=== PATIENT | female | born 1955 | race Caucasian/White ===

== ENCOUNTER 2023-03-23 07:47 | Day surgery (SDC) | payer MEDICARE, SELFPAY ==
[2023-03-08 10:42] VITALS: BMI 29.7
[2023-03-23 08:15] VITALS: BP 153/84; PULSE 78; RESP 20; TEMP 36.8; O2SAT 96
--- NOTE | 2023-03-23 08:20 | WPDANESEPPF ---
Anes - Initial Pre Proc Eval Procedure: Operation Date: 03/23/23 09:30 Proposed Procedures p Esophagogastroduodenoscopy - Eleazar Cooley MD s Screening Colonoscopy - Eleazar Cooley MD Date/Time: 03/23/23 08:20 Surgeon: Eleazar Cooley MD Pre Op Diagnosis: HX of Peptic Ulcer Disease, Neoplasm Screening Patient Data Age: 67 Gender: F Height: 1.6 m Weight: 76 kg Allergies Allergy/AdvReac Type Severity Reaction Status Date / Time Penicillins Allergy Mild Unknown Verified 03/23/23 08:21 clindamycin Allergy Unknown Unknown Verified 03/23/23 08:21 meloxicam Allergy Unknown Unknown Verified 03/23/23 08:21 Quinolones Allergy Unknown Unknown Verified 03/23/23 08:21 Sulfa (Sulfonamide Allergy Unknown Unknown Verified 03/23/23 08:21 Antibiotics) sulfanilamide Allergy Unknown Unknown Verified 03/23/23 08:21 Home Medications Medication Instructions Recorded Confirmed Type folic acid 1 mg tablet 1 mg PO DAILY 10/22/19 03/23/23 History hydroxychloroquine 200 mg tablet 200 mg PO BID 10/22/19 03/23/23 History (Plaquenil) temazepam 7.5 mg capsule 7.5 mg PO ONCE 10/22/19 03/23/23 History aspirin 81 mg tablet,delayed 81 mg PO DAILY #1 tablet 02/09/23 03/23/23 Rx release sodium,potassium,mag sulfates 17.5 See Rx Instructions PO .COMPLEX 02/17/23 03/23/23 Rx gram-3.13 gram-1.6 gram oral soln #354 mL (Suprep Bowel Prep Kit) methotrexate sodium 2.5 mg tablet 20 mg PO WEEKLY 03/08/23 03/23/23 History Patient hx anesthesia problems: none Family hx anesthesia problems: none Results Review: All pre-operative results and documents have been reviewed as part of the pre-operative evaluation. [facility] Past Medical History Medical History (Updated 03/23/23 @ 09:07 by Eleazar Cooley MD) BMI 29.0-29.9,adult Brain aneurysm Chronic GERD Rheumatoid arthritis Surgical History Surgical History (Updated 03/23/23 @ 08:21 by Can Downey DO) History of brain shunt Family History Family History Mother Family history of Alzheimer's disease Cerebrovascular accident Father Family history of lung cancer Family history of malignant neoplasm of bone Sibling , cancer No problems noted. Social History Social History (Updated 02/09/23 @ 15:08 by RAGINI Lebron) Smoking status: Never smoker Tobacco type: cigarettes Second hand tobacco smoke exposure: No Alcohol intake: never Substance use: never Substance use type: does not use Lack of Transportation: No Lack of Food: Never True Current Housing: I Have Housing Concerned About Future Housing: No Difficulty Paying Gas/Electric Bills: No Difficulty Paying for Meds: No Currently Unemployed: No Education: High School Diploma/GED Difficulty w/ Childcare or Family Care: No Living arrangements: with family Occupation/Education: retired 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 Informed Consent: The patient's anesthetic plan and its attendant risks and benefits were discussed with the patient/family/POA. Questions were solicited and answers provided to the satisfaction of the patient/family/POA.
[2023-03-23] MEDS: LACTATED RINGERS 1,000 ML 150 ML IV CONT (08:48)
--- NOTE | 2023-03-23 09:04 | PM.HPGS ---
History of Present Illness History of Present Illness Consent: Risks, benefits, and alternatives have been discussed and questions answered. Patient agrees to proceed with procedure. Chief complaint: HX of Peptic Ulcer Disease, Neoplasm Screening Narrative: Akua Garner is a 67 year old female Referred by Gynecology for colonoscopy an EGD. Patient has a history of bleeding ulcers identified in 2018. At that time endoscopy confirmed gastric ulcers. Follow-up EGD in [address] Paulson confirmed that these his he has healed up. Patient has a history of rheumatoid arthritis. Previously took NSAIDs. She low longer takes these. She is maintained on methotrexate. Patient referred for EGD. Apparently because of left side chest pain. Patient complains of occasional tenderness in left lower ribcage. She has no difficulty eating. She has no heartburn. Has had no recent bleeding. Additionally patient is referred for colonoscopy. Two thousand nineteen was found to have a colon polyp. Patient referred for colonoscopy for this reason. Review of Systems Review of Systems: Review of systems noncontributory. [facility] Past Medical History Medical History (Updated 03/23/23 @ 09:07 by Eleazar Cooley MD) BMI 29.0-29.9,adult Brain aneurysm Chronic GERD Rheumatoid arthritis Surgical History Surgical History (Updated 03/23/23 @ 08:21 by Can Downey DO) History of brain shunt Family History Family History Mother Family history of Alzheimer's disease Cerebrovascular accident Father Family history of lung cancer Family history of malignant neoplasm of bone Sibling , cancer No problems noted. Social History Social History (Updated 02/09/23 @ 15:08 by RAGINI Lebron) Smoking status: Never smoker Tobacco type: cigarettes Second hand tobacco smoke exposure: No Alcohol intake: never Substance use: never Substance use type: does not use Lack of Transportation: No Lack of Food: Never True Current Housing: I Have Housing Concerned About Future Housing: No Difficulty Paying Gas/Electric Bills: No Difficulty Paying for Meds: No Currently Unemployed: No Education: High School Diploma/GED Difficulty w/ Childcare or Family Care: No Living arrangements: with family Occupation/Education: retired 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 Gender identity (if verbalized by the patient): Female Spiritual care concerns: No Meds Home Medications and Allergies Home Medications Medication Instructions Recorded Confirmed Type folic acid 1 mg tablet 1 mg PO DAILY 10/22/19 03/23/23 History hydroxychloroquine 200 mg tablet 200 mg PO BID 10/22/19 03/23/23 History (Plaquenil) temazepam 7.5 mg capsule 7.5 mg PO ONCE 10/22/19 03/23/23 History aspirin 81 mg tablet,delayed 81 mg PO DAILY #1 tablet 02/09/23 03/23/23 Rx release sodium,potassium,mag sulfates 17.5 See Rx Instructions PO .COMPLEX 02/17/23 03/23/23 Rx gram-3.13 gram-1.6 gram oral soln #354 mL (Suprep Bowel Prep Kit) methotrexate sodium 2.5 mg tablet 20 mg PO WEEKLY 03/08/23 03/23/23 History Allergies Allergy/AdvReac Type Severity Reaction Status Date / Time Penicillins Allergy Mild Unknown Verified 03/23/23 08:21 clindamycin Allergy Unknown Unknown Verified 03/23/23 08:21 meloxicam Allergy Unknown Unknown Verified 03/23/23 08:21 Quinolones Allergy Unknown Unknown Verified 03/23/23 08:21 Sulfa (Sulfonamide Allergy Unknown Unknown Verified 03/23/23 08:21 Antibiotics) sulfanilamide Allergy Unknown Unknown Verified 03/23/23 08:21 Vital Signs Vital Signs - 24 hr 03/23/23 08:15 Temperature 98.3 F Pulse Rate 78 Respiratory Rate 20 Blood Pressure 153/84 H Pulse Oximetry 96 Oxygen Delivery Room Air Exam Narrative: Physical exam reveals patient to be alert. Vital signs s
[2023-03-23] MEDS: BENZOCAINE (*SP) 60 ML SPRAY CAN (HURRICAINE) 1 SPRAY MUCOUS MEM (09:55)
[2023-03-23] MEDS: SIMETHICONE ORAL SUSPENSION 20 MG/0.3 ML 30 ML BOTTLE 0.6 ML IRRIGATION (10:10)
[2023-03-23 10:25] VITALS: BP 121/77; PULSE 75; RESP 16; O2SAT 98
[2023-03-23 10:35] VITALS: BP 124/85; PULSE 77; RESP 16; O2SAT 97
[2023-03-23 10:45] VITALS: BP 138/85; PULSE 64; RESP 18; O2SAT 97
--- NOTE | 2023-03-23 12:56 | WPDANESPN ---
Anes - Prog Note Post-Op Date/Time: 03/23/23 12:56 Cardiovascular status: normal Respiratory status: normal Airway patency: baseline Mental status: baseline Post-Op hydration status: normal Vital Signs: Last Vital Signs Temp 36.8 C 03/23/23 08:15 Pulse 64 03/23/23 10:45 Resp 18 03/23/23 10:45 BP 138/85 03/23/23 10:45 Pulse Ox 97 03/23/23 10:45 O2 Del Method Room Air 03/23/23 10:45 Pain Score (VAS): 0 I/O: Intake & Output 03/22/23 03/23/23 03/23/23 23:59 07:59 15:59 Intake Total 550 Balance 550 Post-procedural complaints: none Patient Feedback: Patient satisfied with anesthetic care. Other Findings: Patient vital signs back to baseline. Patient denies nausea and vomiting. Patient's pain under control. Patient OK for discharge.
== END 2023-03-23 11:05 | disposition home or self-care (01) ==
PROVIDERS: PCP Family Medicine; Visit Provider Internal Medicine Gastroenterology
PROC: 0DJ08ZZ Inspection of Upper Intestinal Tract, Via Natural or Artificial Opening Endoscopic (ICD-10-PCS; CPT 43235; principal; 2023-03-23 09:30)
PROC: 0DJD8ZZ Inspection of Lower Intestinal Tract, Via Natural or Artificial Opening Endoscopic (ICD-10-PCS; CPT 45378; 2023-03-23 09:30)
DX: Z86.010 Personal history of colon polyps (principal)
CPT/HCPCS: 45385

== ENCOUNTER 2023-03-23 09:00 | Outpatient (NON) | payer MEDICARE, SELFPAY | END 2023-03-23 09:01 | disposition home or self-care (01) | PROVIDERS: PCP Family Medicine; Visit Provider Internal Medicine Gastroenterology | DX: Z12.11 Encounter for screening for malignant neoplasm of colon (principal) | CPT/HCPCS: 88305 ==

== ENCOUNTER 2023-11-16 08:13 | Outpatient (CLI) | payer MEDICARE, SELFPAY ==
--- NOTE | ~2023-11-16 | US_ITS ---
EXAMINATION: US carotid duplex BI DATE: 11/16/2023 10:01 INDICATION: Syncope and collapse TECHNIQUE: Grayscale, color Doppler, and pulsed Doppler images of the cervical carotid arteries were obtained. The degree of vessel stenosis is placed in one of the following categories: normal, <50%, 5 0-69%, >=70% but less than near-occlusion, near-occlusion, or total occlusion. Note that percent sten osis relative to normal distal artery lumen diameter is indirectly measured from velocity measurement s as described by Gabe, et al. Radiology 2003; 229:340-346. COMPARISON: None. FINDINGS: RIGHT: The right common carotid artery (CCA) peak systolic velocity (PSV) is 131 cm/s. The right internal ca rotid artery (ICA) PSV is 80 cm/s. The right ICA end-diastolic velocity (EDV) is 23 cm/s. The right I CA/CCA PSV ratio is 0.6. Grayscale and color Doppler images yield an estimate of <50% diameter reduct ion from plaque in the ICA. The external carotid artery (ECA) PSV is 95 cm/s. There is antegrade flow in the right vertebral artery. LEFT: The left CCA PSV is 133 cm/s. The left ICA PSV is 88 cm/s. The left ICA EDV is 25 cm/s. The left ICA/ CCA PSV ratio is 0.7. Grayscale and color Doppler images yield an estimate of <50% diameter reduction from plaque in the ICA. The ECA PSV is 109 cm/s. There is antegrade flow in the left vertebral arter y. IMPRESSION: 1. <50% stenosis in the right internal carotid artery. 2. <50% stenosis in the left internal carotid artery. Reviewed, dictated and finalized at location A. [employer]
--- NOTE | 2023-11-16 08:52 | ECHO_ITS ---
Patient Info Name: Akua Garner Age: 67 years : 1955 Gender: Female Ht: 63 in Wt: 182 lbs BSA: 1.95 m2 HR: 69 bpm BP: 130 / 84 mmHg Technical Quality: Good Exam Date: 11/16/2023 9:01 AM Exam Location: Echo Lab Patient Status: Outpatient Admit Date: 11/16/2023 Staff Ordering Physician: Annette Caballero Attending Provider: Annette Caballero Referring Physician: Ada GIFFORD; Exam Type: CA echo doppler color flow Study Info Indications R55 - Syncope and collapse Complete two-dimensional, color flow and Doppler transthoracic echocardiogram is performed. Summary 1. Complete two-dimensional, color flow and Doppler transthoracic echocardiogram is performed. 2. Left ventricular chamber dimension is normal. 3. Left ventricular systolic function is normal, estimated at 65-70%. 4. The left ventricular diastolic function is abnormal. 5. E/e' 12 is mildly elevated. 6. Left atrial chamber dimension is mildly enlarged. 7. There is trace tricuspid valve regurgitation. 8. No pulmonary hypertension, estimated pulmonary arterial systolic pressure is 29 mmHg. Left Ventricle E/e' 12 is mildly elevated. Left ventricular chamber dimension is normal. Left ventricular systolic function is normal, estimated at 65-70%. The left ventricular diastolic function is abnormal. Right Ventricle Right ventricular systolic function is normal and with normal TAPSE 1.9 cm. Right ventricular chamber dimension is normal. Left Atria Left atrial chamber dimension is mildly enlarged. Right Atria Right atrial chamber dimension is normal. Aortic Valve The aortic valve is trileaflet. There is no aortic valve stenosis. There is no aortic valve regurgitation. Pulmonic Valve There is no pulmonic regurgitation. Mitral Valve There is no mitral valve stenosis. There is no mitral valve regurgitation. Tricuspid Valve There is trace tricuspid valve regurgitation. No pulmonary hypertension, estimated pulmonary arterial systolic pressure is 29 mmHg. Pericardium/Pleural There is no pericardial effusion. Inferior Vena Cava Normal inferior vena cava with >50% collapse upon inspiration consistent with normal right atrial pressure, 5 mmHg. Aorta The aortic root size at the sinus of Valsalva is normal. Left Ventricular Outflow Tract Name Value Normal LVOT 2D LVOT Diameter 2.0 cm LVOT Doppler LVOT Peak Gradient 6 mmHg LVOT Mean Gradient 4 mmHg LVOT VTI 31 cm LVOT VTI/AV VTI Ratio 0.6 LVOT Stroke Volume 95 ml LVOT CO 6.2 l/min LVOT CI 3.2 l/min/m2 Pulmonic Valve Name Value Normal PV Doppler PV Peak Gradient 3 mmHg Mitral Valve Name
== END 2023-11-16 08:14 | disposition home or self-care (01) ==
PROVIDERS: PCP Family Medicine; Visit Provider Nurse Practitioner Family
DX: R55 Syncope and collapse (principal); I65.23 Occlusion and stenosis of bilateral carotid arteries; I51.7 Cardiomegaly
CPT/HCPCS: 93306; 93880

== ENCOUNTER 2024-05-12 13:00 | Emergency (ER) | payer MEDICARE, SELFPAY ==
--- NOTE | ~2024-05-12 | CT_ITS ---
EXAMINATION: CT abdomen pelvis w con DATE: 05/12/2024 15:09 INDICATION: LLQ pain TECHNIQUE: Computed tomography (CT) of the abdomen and pelvis was performed with 100 mL Omnipaque-350 intravenous contrast. Automated exposure control and iterative reconstruction technique were employe d. The dose-length product was 829.85 mGy-cm. COMPARISON: 03/12/2018. FINDINGS: Lower thorax: Small focus of right middle lobe and anterior right lower lobe atelectasis/scar. Liver: Normal. Biliary/Gallbladder: Gallbladder is absent. No bile duct dilation. Pancreas: No mass or duct dilation. Spleen: Normal. Adrenals:No mass. Kidneys: No suspicious mass, obstructing stone, or hydronephrosis. Simple bilateral upper pole cysts. Multiple subcentimeter left renal hypodensities that are too small to characterize but most likely r epresent cysts. GI tract: Mild distal esophageal and gastric wall edema. Short segment perisigmoid inflammatory cullen e with an associated inflamed diverticulum. No free air or abscess. No small or large bowel dilation. Normal appendix. Mesentery/Peritoneum: No ascites, mass, or free air. Retroperitoneum: No mass. Pelvis: Small urethrocele or bladder diverticulum. Urinary bladder otherwise normal. Uterus not visua lized. Bilateral ovaries not confidently visualized. Soft Tissues: Soft tissues and body wall unremarkable. Bones: No acute osseous finding. IMPRESSION: Mild esophagitis/gastritis. Acute uncomplicated sigmoid diverticulitis. Reviewed, dictated and finalized at location K.
[2024-05-12 13:05] VITALS: BP 172/66; PULSE 76; RESP 16; TEMP 36.4; O2SAT 97
[2024-05-12 14:27] LABS: Basophils Absolute Auto 0.1 K/mm3 (0.0-0.1); Basophils Percent Auto 0.4 % (0.2-1.2); Eosinophils Absolute Auto 0.2 K/mm3 (0-0.3); Hematocrit 38.4 % (37.0-47.0); Hemoglobin 12.5 g/dL (12.0-15.0); Immature Granulocyte Absolute 0.09 K/mm3 (0.00-0.031); Immature Granulocyte Percent A 0.6 % (0-0.5); Lymphocytes Percent Auto 9.1 % (18.3-44.2); Mean Corpuscular HGB Conc 32.6 g/dl (32-36); Mean Corpuscular Hemoglobin 30.4 pg (26-34); Mean Corpuscular Volume 93.4 fl (80-100); Mean Platelet Volume 10.3 fl (7.4-10.4); Monocytes Absolute Auto 1.4 K/mm3 (0.1-0.6); Monocytes Percent Auto 9.9 % (2.6-8.5); Neutrophils Absolute Auto 11.3 K/mm3 (1.3-6.7); Platelet Count Result 219 k/mm3 (150-375); Red Blood Count 4.11 M/mm3 (4.2-5.4); White Blood Count 14.3 K/mm3 (4.5-10.0)
[2024-05-12] MEDS: MORPHINE SULFATE (*CRX) 4 MG/ML INJ IV PUSH (14:36)
[2024-05-12] MEDS: ONDANSETRON INJ 4 MG/2 ML VIAL IV PUSH (14:36)
[2024-05-12 14:47] LABS: Alanine Aminotransferase 25 U/L (6-35); Albumin Level 4.2 g/dL (3.5-5.1); Alkaline Phosphatase 103 U/L (38-126); Anion Gap 8 mmol/L (4-12); Aspartate Amino Transferase 34 U/L (14-36); Bilirubin,Total 0.6 mg/dL (0.2-1.3); Blood Urea Nitrogen 18 mg/dL (7-17); Calcium 8.9 mg/dL (8.4-10.2); Carbon Dioxide 28 mmol/L (22-30); Chloride 104 mmol/L (98-107); Estimated CRCL calculation 51 ml/min; Estimated Glomerular Filt Rate 55; Glucose 108 mg/dL (65-110); Lipase 487 U/L (23-300); Potassium 4.2 mmol/L (3.4-5.0); Sodium 140 mmol/L (137-145)
[2024-05-12 16:15] VITALS: BP 111/62; PULSE 74; RESP 16; O2SAT 94
[2024-05-12 16:20] LABS: Appearance Urine Clear (Clear); Bilirubin Urine Negative (Negative); Blood Urine Negative (Negative); Color Urine Yellow (Yellow); Glucose Urine UA Negative (Negative); Ketones Urine Negative (Negative); Leukocyte Esterase Ur Negative LEU/UL (Negative); Nitrate Urine Negative (Negative); Protein Urine Negative (Negative); Specific Grav Ur 1.042 (1.001-1.035); Urobilinogen Urine 0.2 mg/dL (<2.0); pH Urine 5.5 (5.0-9.0)
[2024-05-12 16:40] LABS: Add Urine Microscopic? NO
--- NOTE | 2024-05-12 17:17 | ED.ABDPAIN ---
HPI - Abdominal Pain General Chief Complaint: Abdominal Pain Stated Complaint: abd pain Time Seen by Provider: 05/12/24 14:13 History of Present Illness HPI narrative: Patient is a 68-year-old female who presents ER with left lower quadrant abdominal pain. Sudden onset today. No diarrhea or constipation. No urinary frequency urgency or dysuria there are she does have history of diverticulitis. patient denies aggravating or alleviating factors. Related Data Home Medications Medication Instructions Recorded Confirmed folic acid 1 mg tablet 1 mg PO DAILY 10/22/19 02/14/24 hydroxychloroquine 200 mg tablet 200 mg PO BID 10/22/19 02/14/24 (Plaquenil) methotrexate sodium 2.5 mg tablet 20 mg PO WEEKLY 03/08/23 02/14/24 adalimumab 40 mg/0.8 mL 40 mg subcut ONCE 10/27/23 02/14/24 subcutaneous pen kit (Humira Pen) Allergies Allergy/AdvReac Type Severity Reaction Status Date / Time Penicillins Allergy Mild Unknown Verified 05/03/24 07:48 clindamycin Allergy Unknown Unknown Verified 05/03/24 07:48 meloxicam Allergy Unknown Unknown Verified 05/03/24 07:48 Quinolones Allergy Unknown Unknown Verified 05/03/24 07:48 Sulfa (Sulfonamide Allergy Unknown Unknown Verified 05/03/24 07:48 Antibiotics) sulfanilamide Allergy Unknown Unknown Verified 05/03/24 07:48 Review of Systems Review of Systems: All systems reviewed & are unremarkable except as noted in HPI and below Constitutional: Constitutional: Reports no additional constitutional complaints ENT: Reports system reviewed and no additional complaints, except as documented Cardiovascular: Cardiovascular: Reports no additional cardiovascular complaints Respiratory: Respiratory: Reports no additional respiratory complaints Gastrointestinal: Gastrointestinal: Reports abdominal pain, Denies diarrhea, Denies nausea and Denies vomiting [facility] Past Medical History Medical History BMI 29.0-29.9,adult BMI 32.0-32.9,adult Brain aneurysm Chronic GERD Rheumatoid arthritis Surgical History Surgical History History of brain shunt Family History Family History Mother Family history of Alzheimer's disease Cerebrovascular accident Father Family history of lung cancer Family history of malignant neoplasm of bone Sibling , cancer Cancer Family history of Alzheimer's disease AA (aortic aneurysm) Social History Social History Smoking status: Former smoker Tobacco type: cigarettes Second hand tobacco smoke exposure: Yes Alcohol intake: never Substance use: never Substance use type: does not use Do You Feel Safe in your Home?: Yes Lack of Transportation: No Lack of Food: Never True Current Housing: I Have Housing Concerned About Future Housing: No Difficulty Paying Gas/Electric Bills: No Difficulty Paying for Meds: No Currently Unemployed: No Education: High School Diploma/GED Difficulty w/ Childcare or Family Care: No Living arrangements: with family Occupation/Education: retired 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 HEAD: Normocephalic, atraumatic. ENT: Mucous membranes moist. CHEST: Clear to auscultation. No respiratory distress. HEART: Regular rate and rhythm. Normal peripheral pulses. ABDOMEN: Soft, tender to palpation left lower quadrant with guarding, nondistended. EXTREMITIES: Normal range of motion. No edema. SKIN: Warm, dry, no rash. NEURO:Alert and oriented x3. PSYCH: Normal mood and affect. Course Course Emergency Course: patient informed of lab and imaging results. Discusse
[2024-05-12 17:52] VITALS: BP 115/57; PULSE 84; RESP 19; O2SAT 95
== END 2024-05-12 17:53 | disposition home or self-care (01) ==
PROVIDERS: Emergency Provider Emergency Medicine; PCP Family Medicine
DX: K57.32 Diverticulitis of large intestine without perforation or abscess without bleeding (principal); K29.70 Gastritis, unspecified, without bleeding; M06.9 Rheumatoid arthritis, unspecified; K21.9 Gastro-esophageal reflux disease without esophagitis; Z98.2 Presence of cerebrospinal fluid drainage device; Z87.891 Personal history of nicotine dependence; Z79.620 Long term (current) use of immunosuppressive biologic; Z79.899 Other long term (current) drug therapy; Z79.82 Long term (current) use of aspirin
CPT/HCPCS: 36415; 74177; 80053; 81003; 83690; 85025; 96374; 96375; 99284; J2270; J2405; Q9967

== ENCOUNTER 2025-05-02 09:50 | Inpatient (IN) | payer MEDICARE, SELFPAY ==
--- NOTE | ~2025-05-02 | CT_ITS ---
EXAMINATION: CTA chest PE abdomen pel DATE: 05/02/2025 12:32 INDICATION: Hypoxia. Left upper quadrant abdominal pain. TECHNIQUE: Computed tomography (CT) pulmonary angiogram of the chest was performed with 100 mL Omnipa que-350 intravenous contrast. Additional 3D reconstructions utilizing coronal maximum intensity proje ction (MIP) were performed. CT of the abdomen and pelvis was performed with intravenous contrast util izing the same contrast bolus following a short delay. Automated exposure control and iterative recon struction technique were employed. The dose-length product was 1635.23 mGy-cm. COMPARISON: CT abdomen pelvis dated 05/12/[address] dated 12/01/2016 FINDINGS: Chest: No pulmonary embolism. Mosaic attenuation throughout both lungs with perihilar predominant patchy lico undglass opacities throughout all lobes of both lungs. There are scattered pleural parenchymal scarri ng and linear atelectasis/scarring in all lobes of both lungs with the exception of the left upper lo be. No pleural effusion or pneumothorax. Calcified right lower lobe nodule along with calcified right hilar and mediastinal lymph nodes consistent with old granulomatous disease. Heart size is normal. N o pericardial effusion. Thoracic aorta is normal in caliber with no dissection. Small sliding-type hi atal hernia with small thickening the distal esophagus which could be related to mild esophagitis sec ondary reflux. Mild thoracic spondylosis. C6-C7 anterior spinal fusion with anterior plate and screw fixation. Abdomen/pelvis: There is prominent edematous wall thickening at the gastric antrum and pylorus with haziness to the s urrounding fat suggestive of peptic ulcer disease versus focal gastritis. Cholecystectomy clips the g allbladder fossa. Liver, spleen, pancreas and bilateral adrenal glands are normal. There are bilatera l renal cysts measuring up to 1.4 cm in both kidneys. Bladder is normal. The uterus is not identified and has likely been surgically resected. Bilateral adnexa are unremarkable with age-appropriate atro phy of the ovaries.. There is moderate colonic diverticulosis with a sigmoid predominance. There is no adjacent inflammatory change to suggest diverticulitis. No free intraperitoneal gas or fluid. No p athologically enlarged abdominal or pelvic lymphadenopathy. Small fat-containing intramuscular lipoma within the proximal left sartorius muscle. Mild lumbar spondylosis. IMPRESSION: 1. No pulmonary embolism. 2. Mosaic attenuation throughout both lungs with perihilar predominant patchy groundglass opacities w hich is new since the prior study and in the acute setting could represent pneumonia, mild pulmonary edema, atelectasis, hypersensitivity pneumonitis or eosinophilic pneumonia. 3. Prominent edematous wall thickening at the gastric antrum and pylorus with some surrounding from t race stranding most suspicious for peptic ulcer disease or focal gastritis. The stranding abuts the h ead of the otherwise normal-appearing pancreas and would correlate with lipase levels to exclude less likely acute interstitial pancreatitis. 4. Small sliding-type hiatal hernia with mild wall thickening in the distal esophagus which could be seen with reflux esophagitis. 5. Diverticulosis. Reviewed, dictated and finalized at location A. IMPRESSION: 1. No pulmonary embolism. 2. Mosaic attenuation throughout both lungs with perihilar predominant patchy g roundglass opacities which is new since the prior study and in the acute settin g could represent pneumonia, mild pulmonary edema, atelectasis, hypersensitivit y pneumonitis or eosinophilic pneumonia. 3. Prominent edematous wall thickening at the gastric antrum and pylorus with s ome surrounding from trace stranding most suspicious for peptic ulcer disease o r focal gastritis. The stranding abuts the head of the otherwise normal-appeari ng pancreas and would correlate with lipase levels to exclude less likely acute interstitial pancreatitis. 4. Small sliding-type hiatal hernia with mild wall thickening in the distal eso phagus which could be seen with reflux esophagitis. 5. Diverticulosis.
--- NOTE | ~2025-05-02 | XR_ITS ---
EXAM/PROCEDURE: XR chest 2V - 05/02/2025 12:15 CDT HISTORY: 69 years old Female with shortness of breath, CONSTIPATION, NAUSEOUS X04/27/25 TECHNIQUE: Two view(s) of the chest. COMPARISON: None available. FINDINGS: LUNGS/ PLEURA: No focal consolidation. No appreciable pneumothorax or large pleural effusion. HEART/ MEDIASTINUM: Heart appears normal in size. BONES: No acute osseous abnormality. OTHER: Visualized upper abdomen is unremarkable. IMPRESSION: No acute process. Reviewed, dictated and finalized at location A. IMPRESSION: No acute process.
[2025-05-02 10:01] VITALS: BP 155/64; PULSE 79; RESP 18; TEMP 36.7; O2SAT 94
[2025-05-02 10:37] LABS: Hematocrit 38.0 % (37.0-47.0); Hemoglobin 12.2 g/dL (12.0-15.0); Immature Granulocyte Percent A 0.5 % (0-0.5); Lymphocytes Absolute Auto 1.66 K/mm3 (0.9-3.2); Mean Corpuscular HGB Conc 32.1 g/dl (32-36); Mean Corpuscular Hemoglobin 28.0 pg (26-34); Mean Corpuscular Volume 87.2 fl (80-100); Nucleated Red Blood Cells Absolute Auto 0.000 K/mm3 (0.0-0.012); Nucleated Red Blood Cells Perc 0.0 % (0.0-0.2); Platelet Count Result 303 k/mm3 (150-375); Red Blood Count 4.36 M/mm3 (4.2-5.4); White Blood Count 14.3 K/mm3 (4.5-10.0)
[2025-05-02 10:45] LABS: Add Urine Microscopic? YES; Appearance Urine Clear (Clear); Glucose Urine UA Negative (Negative); Leukocyte Esterase Ur 2+ LEU/UL (Negative); Nitrate Urine Negative (Negative); Non Pathogenic Casts 0-2; Specific Grav Ur 1.012 (1.001-1.035)
--- NOTE | 2025-05-02 11:32 | ECG_ITS ---
Test Date: 2025-05-02 11:56:28 Measurements Intervals [place] Rate: 72 P: 68 MS: 150 QRS: 64 QRSD: 84 T: 43 QT: 394 QTc: 434 Interpretive Statements SINUS RHYTHM BORDERLINE T WAVE ABNORMALITY- ANTERIOR LEADS BASELINE ARTIFACT- I, II, III, AVR, AVL, AVF BORDERLINE ECG No previous ECG available for comparison Electronically Signed On 05-02-2025 12:07:52 CDT by Cornelius Mason D.O.
--- NOTE | 2025-05-02 11:35 | ED_ITS ---
HPI - Nausea/Vomiting/Diarrhea General Chief complaint: Nausea/Vomiting/Diarrhea Stated complaint: n/v, constipation Time Seen by Provider: 05/02/25 10:18 History of Present Illness HPI Narrative: Patient is a 69-year-old female who presents to the ER with a 6 day history of abdominal pain, vomiting, no bowel movement, chills, sweats, and sore throat. She reports she was recently on vacation with her family in the [facility]. Patient reports she was diagnosed with diverticulitis within the past year. She reports while she was up in the [facility] her oxygen saturation was ?83%. Patient denies any headache, shortness of breath, chest pain or known fevers. Her medical chart endorses a history of high blood pressure and diabetes. Related Data Home Medications ?Medication ?Instructions ?Recorded ?Confirmed ?Last Taken ?Type hydroxychloroquine 200 mg tablet 200 mg PO BID 10/22/19 05/02/25 Unknown History (Plaquenil) adalimumab 40 mg/0.8 mL 40 mg subcut ONCE 10/27/23 05/02/25 Unknown History subcutaneous pen kit (Humira Pen) amlodipine 5 mg tablet 5 mg PO DAILY 09/06/24 05/02/25 Unknown History Allergies Allergy/AdvReac Type Severity Reaction Status Date / Time Penicillins Allergy Mild Unknown Verified 05/02/25 10:06 clindamycin Allergy Unknown Unknown Verified 05/02/25 10:06 meloxicam Allergy Unknown Unknown Verified 05/02/25 10:06 Quinolones Allergy Unknown Unknown Verified 05/02/25 10:06 Sulfa (Sulfonamide Allergy Unknown Unknown Verified 05/02/25 10:06 Antibiotics) sulfanilamide Allergy Unknown Unknown Verified 05/02/25 10:06 Review of Systems 2 Review of Systems: All systems reviewed & are unremarkable except as noted in HPI and below PMFSH Past Medical History Medical History Sinusitis, acute Left otitis media Low iron Kidney function abnormal Iron deficiency anemia due to chronic blood loss Decreased GFR Chronic radicular lumbar pain Chronic pain of right knee Cardiac murmur Fainting Changing skin lesion Contact dermatitis Insomnia Hand tingling Brain aneurysm Low kidney function History of colon polyps Hx of gastric ulcer Hypoglycemia Family history of brain aneurysm Mild diastolic dysfunction Mild atrial enlargement, left Elevated blood pressure reading Diverticulosis Rheumatoid arthritis Chronic GERD Brain aneurysm Surgical History Surgical History History of brain shunt Family History Family History Mother Family history of Alzheimer's disease Cerebrovascular accident Father Family history of lung cancer Family history of malignant neoplasm of bone Sibling , cancer Cancer Family history of Alzheimer's disease AA (aortic aneurysm) Social History Social History Smoking status: Former smoker Tobacco type: cigarettes Second hand tobacco smoke exposure: Yes Alcohol intake: never Substance use: never Substance use type: does not use Do You Feel Safe in your Home?: Yes Lack of Transportation: No Lack of Food: Never True Current Housing: I Have Housing Concerned About Future Housing: No Difficulty Paying Gas/Electric Bills: No Difficulty Paying for Meds: No Currently Unemployed: No Education: High School Diploma/GED Difficulty w/ Childcare or Family Care: No Living arrangements: with family Occupation/Education: retired 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 HEAD: Normocephalic, atraumatic. + palatal petechiae NECK: Supple. No adenopathy, no masses. RESPIRATORY: Airway patent, respirations nonlabored. Clear to auscultation bilaterally, no rales, rhonchi, wheezing. CARDIOVASCULAR: Regular rate and rhythm without murmurs, rubs, or gallops. Peripheral pulses 2+ and equal bilaterally. ABDOMINAL: Soft, LUQ tenderness, nondistended, no hepatosplenomegaly. Normoactive BS. MUSCULOSKELETAL: Moves all extremities. Strength/ROM intact without gross deformities. SKIN: Warm, dry, normal color. No rashes. NEURO: A&O X3. Speech clear. Cranial nerves II-XII intact. No ataxic movements. PSYCHIATRIC: Appropriate mood and affect. Normal interaction. Course Vital Signs Vital signs: Vital Signs Temperature 36.7 C 05/02/25 10:01 Pulse Rate 79 05/02/25 10:01 Respiratory Rate 18 05/02/25 10:01 Blood Pressure 155/64 H 05/02/25 10:01 Pulse Oximetry 94 05/02/25 10:01 Oxygen Delivery Room Air 05/02/25 10:01 Temperature 36.7 C 05/02/25 10:01 Pulse Rate 79 05/02/25 14:12 Respiratory Rate 20 05/02/25 14:12 Blood Pressure 138/66 05/02/25 14:12 Pulse Oximetry 92 05/02/25 14:12 Oxygen Delivery Room Air 05/02/25 10:01 MDM - Nausea/Vomiting/Diarrhea MDM Narrative Medical decision making narrative: Patient is a 69-year-old female who presents to the ER with a 6 day history of abdominal pain, vomiting, no bowel movement, chills, sweats, and sore throat. She reports she was recently on vacation with her family in the [facility]. Patient reports she was diagnosed with diverticulitis within the past year. She reports while she was up in the [facility] her oxygen saturation was ?83%. Patient denies any headache, shortness of breath, chest pain or known fevers. Her medical chart endorses a history of high blood pressure and diabetes. Labs Ordered: CBC, CMP, COVID/flu/RSV swab, strep swab, lactic acid, BNP, CRP, lipase, troponin, D-dimer, INR, PTT, blood cultures Imaging Ordered: Chest x-ray, CTA chest abdomen pelvis Medications Ordered: 1 L normal saline IV bolus x3, Pepcid IV, Protonix IV, Zofran IV, ceftriaxone 1 g IV, Results: Patient's CT scan indicates 1. No pulmonary embolism. 2. Mosaic attenuation throughout both lungs with perihilar predominant patchy groundglass opacities which is new since the prior study and in the acute setting could represent pneumonia, mild pulmonary edema, atelectasis, hypersensitivity pneumonitis or eosinophilic pneumonia. 3. Prominent edematous wall thickening at the gastric antrum and pylorus with some surrounding from trace stranding most suspicious for peptic ulcer disease or focal gastritis. The stranding abuts the head of the otherwise normal- appearing pancreas and would correlate with lipase levels to exclude less likely acute interstitial pancreatitis. 4. Small sliding-type hiatal hernia with mild wall thickening in the distal esophagus which could be seen with reflux esophagitis. 5. Diverticulosis. Diagnosis: Pneumonia, gastritis * patient is requiring 2 L nasal cannula to maintain oxygen saturations about 90% [id number] with hospitalist Dr. Wetzel, who agreed to accept patient to the hospital. She will be admitted to the med/surg floor. Differential Diagnosis Differential diagnosis: Likely gastroenteritis, dehydration and other (Pneumonia, PE, CHF) Lab Data Attestation: I reviewed the patient's lab results. 05/02/25 10:29 05/02/25 10:29 Labs: Lab Results 05/02/25 05/02/25 05/02/25 Range/Units 10:28 10:29 11:52 WBC 14.3 H (4.5-10.0) K/mm3 RBC 4.36 (4.2-5.4) M/mm3 Hgb 12.2 (12.0-15.0) g/dL Hct 38.0 (37.0-47.0) % MCV 87.2 (80-100) fl MCH 28.0 (26-34) pg MCHC 32.1 (32-36) g/dl RDW 13.5 (11.5-14.5) % Plt Count 303 (150-375) k/mm3 MPV 10.3 (7.4-10.4) fl Immature Gran % (Auto) 0.5 (0-0.5) % Neut % (Auto) 78.2 H (45.5-73.1) % Lymph % (Auto) 11.6 L (18.3-44.2) % [place] % (Auto) 8.0 (2.6-8.5) % Eos % (Auto) 1.3 (0-4.4) % Baso % (Auto) 0.4 (0.2-1.2) % Lymph # (Auto) 1.66 (0.9-3.2) K/mm3 [place] # (Auto) 1.1 H (0.1-0.6) K/mm3 Eos # (Auto) 0.2 (0-0.3) K/mm3 Baso # (Auto) 0.1 (0.0-0.1) K/mm3 Abs Immat Gran (auto) 0.07 H (0.00-0.031) K/mm3 Absolute Neuts (auto) 11.2 H (1.3-6.7) K/mm3 Absolute Nucleated RBC 0.000 (0.0-0.012) K/mm3 Nucleated RBC % 0.0 (0.0-0.2) % PT 13.6 (11.1-14.7) Seconds INR 1.0 APTT 30.3 (22.3-36.8) Seconds D-Dimer 2.61 H (<0.48) ug/mL Sodium 137 (137-145) mmol/L Potassium 4.1 (3.4-5.0) mmol/L Chloride 102 (98-107) mmol/L Carbon Dioxide 24 (22-30) mmol/L Anion Gap 11 (4-12) mmol/L BUN 13 D (7-17) mg/dL Creatinine 1.02 H (0.7-1.0) mg/dL Estim Creat Clear Calc 50 ml/min Estimated GFR 54 L (59 - ) Glucose 89 (65-110) mg/dL Lactic Acid (0.7-2.0) mmol/L Calcium 9.2 (8.4-10.2) mg/dL Total Bilirubin 0.7 (0.2-1.3) mg/dL AST 37 H (14-36) U/L ALT 22 (6-35) U/L Alkaline Phosphatase 84 (38-126) U/L Troponin I 0.013 (0.000-0.034) ng/mL C-Reactive Protein 5.1 H (<1.0) mg/dL NT-Pro-B Natriuret Pep Cancelled Total Protein 7.2 (6.3-8.2) g/dL Albumin 3.7 (3.5-5.1) g/dL Lipase 123 (23-300) U/L Urine Color Yellow (Yellow) Urine Appearance Clear (Clear) Urine pH 7.0 (5.0-9.0) Ur Specific [place] 1.012 (1.001-1.035) Urine Protein Trace (Negative) mg/dL Urine Glucose (UA) Negative (Negative) mg/dL Urine Ketones 1+ H (Negative) mg/dL Ur Blood (Man) Negative (Negative) Urine Nitrate Negative (Negative) Urine Bilirubin Negative (Negative) Urine Urobilinogen 1.0 (<2.0) mg/dL Leukocyte Esterase Rfl 2+ H (Negative) MAURO/UL Urine RBC 0-2 (0-2) /hpf Urine WBC 6-10 H (0-3) /hpf Ur Squamous Epith Cells Few (Few) /hpf Urine Bacteria None seen /hpf Urine Casts 0-2 Group A Strep (PCR) (Negative) 05/02/25 05/02/25 Range/Units 11:52 11:53 WBC (4.5-10.0) K/mm3 RBC (4.2-5.4) M/mm3 Hgb (12.0-15.0) g/dL Hct (37.0-47.0) % MCV (80-100) fl MCH (26-34) pg MCHC (32-36) g/dl RDW (11.5-14.5) % Plt Count (150-375) k/mm3 MPV (7.4-10.4) fl Immature Gran % (Auto) (0-0.5) % Neut % (Auto) (45.5-73.1) % Lymph % (Auto) (18.3-44.2) % [place] % (Auto) (2.6-8.5) % Eos % (Auto) (0-4.4) % Baso % (Auto) (0.2-1.2) % Lymph # (Auto) (0.9-3.2) K/mm3 [place] # (Auto) (0.1-0.6) K/mm3 Eos # (Auto) (0-0.3) K/mm3 Baso # (Auto) (0.0-0.1) K/mm3 Abs Immat Gran (auto) (0.00-0.031) K/mm3 Absolute Neuts (auto) (1.3-6.7) K/mm3 Absolute Nucleated RBC (0.0-0.012) K/mm3 Nucleated RBC % (0.0-0.2) % PT (11.1-14.7) Seconds INR APTT (22.3-36.8) Seconds D-Dimer (<0.48) ug/mL Sodium (137-145) mmol/L Potassium (3.4-5.0) mmol/L Chloride (98-107) mmol/L Carbon Dioxide (22-30) mmol/L Anion Gap (4-12) mmol/L BUN (7-17) mg/dL Creatinine (0.7-1.0) mg/dL Estim Creat Clear Calc ml/min Estimated GFR (59 - ) Glucose (65-110) mg/dL Lactic Acid 0.5 L (0.7-2.0) mmol/L Calcium (8.4-10.2) mg/dL Total Bilirubin (0.2-1.3) mg/dL AST (14-36) U/L ALT (6-35) U/L Alkaline Phosphatase (38-126) U/L Troponin I (0.000-0.034) ng/mL C-Reactive Protein (<1.0) mg/dL NT-Pro-B Natriuret Pep 240 H Total Protein (6.3-8.2) g/dL Albumin (3.5-5.1) g/dL Lipase (23-300) U/L Urine Color (Yellow) Urine Appearance (Clear) Urine pH (5.0-9.0) Ur Specific [place] (1.001-1.035) Urine Protein (Negative) mg/dL Urine Glucose (UA) (Negative) mg/dL Urine Ketones (Negative) mg/dL Ur Blood (Man) (Negative) Urine Nitrate (Negative) Urine Bilirubin (Negative) Urine Urobilinogen (<2.0) mg/dL Leukocyte Esterase Rfl (Negative) MAURO/UL Urine RBC (0-2) /hpf Urine WBC (0-3) /hpf Ur Squamous Epith Cells (Few) /hpf Urine Bacteria /hpf Urine Casts Group A Strep (PCR) Not detected (Negative) Imaging Data Attestation: I personally reviewed and interpreted this imaging study as follows: Radiologist's impression: Impressions Chest/Abdomen/Pelvis CTA 05/02/25 12:46 IMPRESSION: 1. No pulmonary embolism. 2. Mosaic attenuation throughout both lungs with perihilar predominant patchy groundglass opacities which is new since the prior study and in the acute setting could represent pneumonia, mild pulmonary edema, atelectasis, hypersensitivity pneumonitis or eosinophilic pneumonia. 3. Prominent edematous wall thickening at the gastric antrum and pylorus with some surrounding from trace stranding most suspicious for peptic ulcer disease or focal gastritis. The stranding abuts the head of the otherwise normal- appearing pancreas and would correlate with lipase levels to exclude less likely acute interstitial pancreatitis. 4. Small sliding-type hiatal hernia with mild wall thickening in the distal esophagus which could be seen with reflux esophagitis. 5. Diverticulosis. Chest X-Ray 05/02/25 13:36 IMPRESSION: No acute process. Discharge Plan Discharge Clinical Impression: Pneumonia, Gastritis, Low oxygen saturation, Urinary tract infection Patient Disposition: Still a Patient Condition: Stable Patient Language: Divehi Prescriptions: No Action hydroxychloroquine [Plaquenil] 200 mg tablet 200 mg PO BID Humira Pen 40 mg/0.8 mL pen injector kit 40 mg subcut ONCE amlodipine 5 mg tablet 5 mg PO DAILY aspirin 81 mg tablet,delayed release (DR/EC) 81 mg PO DAILY Qty: 1 0RF Rx Instructions: OTC triamcinolone acetonide 0.5 % cream 1 applic topical BID Qty: 15 0RF (DME) FreeStyle Meg 3 [place] Misc See Rx Instructions .Route Qty: 1 0RF Rx Instructions: As directed (DME) FreeStyle Meg 3 Sensor Device See Rx Instructions .Route Qty: 1 0RF Rx Instructions: As directed temazepam 15 mg capsule 15 mg PO QHS PRN (Reason: sleep) Qty: 30 1RF Follow-up/Referrals: Sergio Caballero MD [Primary Care Provider] -
[2025-05-02] MEDS: FAMOTIDINE 20 MG/2 ML VIAL IV PUSH (11:49)
[2025-05-02] MEDS: SODIUM CHLORIDE 0.9% IV 1,000 ML 999 ML IV CONT ×2 (11:49→16:38)
[2025-05-02] MEDS: PANTOPRAZOLE SODIUM IV 40 MG VIAL IV PUSH (11:49)
[2025-05-02 11:58] VITALS: BP 157/91; PULSE 85; RESP 20; O2SAT 95
[2025-05-02 11:59] LABS: INR 1.0; Prothrombin Time 13.6 Seconds (11.1-14.7)
[2025-05-02 12:00] LABS: Partial Thromboplastin Time 30.3 Seconds (22.3-36.8)
[2025-05-02 12:05] LABS: Alanine Aminotransferase 22 U/L (6-35); Albumin Level 3.7 g/dL (3.5-5.1); Alkaline Phosphatase 84 U/L (38-126); Anion Gap 11 mmol/L (4-12); Aspartate Amino Transferase 37 U/L (14-36); Bilirubin,Total 0.7 mg/dL (0.2-1.3); Blood Urea Nitrogen 13 mg/dL (7-17); Calcium 9.2 mg/dL (8.4-10.2); Carbon Dioxide 24 mmol/L (22-30); Chloride 102 mmol/L (98-107); Estimated CRCL calculation 50 ml/min; Estimated Glomerular Filt Rate 54; Glucose 89 mg/dL (65-110); Lipase 123 U/L (23-300); Potassium 4.1 mmol/L (3.4-5.0); Sodium 137 mmol/L (137-145); Total Protein 7.2 g/dL (6.3-8.2)
[2025-05-02 12:08] LABS: Troponin I 0.013 ng/mL (0.000-0.034)
[2025-05-02 12:22] LABS: Strep Group A RT-PCR NOT DETECTED (Negative)
[2025-05-02 14:12] VITALS: BP 138/66; PULSE 79; RESP 20; O2SAT 92
[2025-05-02] MEDS: ONDANSETRON INJ 4 MG/2 ML VIAL IV PUSH (14:14)
[2025-05-02 15:33] LABS: CRP 5.1 mg/dL (<1.0)
[2025-05-02 15:41] LABS: NT Pro B Type Natriuretic Pept 240 pg/mL (19.9-100)
[2025-05-02 16:45] VITALS: BP 137/69; PULSE 87; RESP 20; O2SAT 95
--- NOTE | 2025-05-02 16:45 | PC.NURSE ---
Pt placed on 2L per EDP
[2025-05-02 17:12] LABS: Influenza A QL RT-PCR Negative (Negative); Influenza B QL RT-PCR Negative (Negative); RSV RNA, RT-PCR Negative (Negative); SARS-CoV-2 RNA PCR Negative (Negative)
[2025-05-02] MEDS: AZITHROMYCIN 500 MG/NS 250 ML 500 MG/250 ML BAG 250 MG IVPB (17:14)
--- NOTE | 2025-05-02 17:22 | PM.IMHP ---
H&P: HPI History of Present Illness Date/Time: 05/02/25 17:22 Chief Complaint: nausea vomiting Narrative: 69-year-old female with a PMHx: of gastritis, GERD, CKD, rheumatoid arthritis. Ms. Garner reports that she began to experience nausea vomiting that started this past Monday citing her symptoms persisted with intermittently episodes occurring Monday, Monday and then again on Monday night , she also reported having symptoms of nausea vomiting on her flight back home. Patient reported her multiple episodes of vomit as dark brown, she did deny any fevers but recalled that she continued to feel chills. Patient states she was unable to keep food or water down she also stated that she has not had a bowel movement since Monday morning. She has been attempting to use stool softeners. although patient has been traveling domestic, she reports she was the only 1 in her group to experience the above symptoms, reducing the likelihood of food borne illness or water contamination. She denies any chest pain, abdominal pain at this time. ED Work-up reveals: BP 137/69, p: 87, respiratory patient is 20, O2 saturation 95% NC with 2 L,WBC 14.3, elevated D-dimer 2.61, serum creatinine 1.02 with GFR 54, BNP 240, urine positive for leukocytes, and urine wbc's 6-10, viral PCR negative, chest x-ray reveals no acute process. Chest abdomen pelvis CTA, no pulmonary embolism. Mosaic attenuation throughout both lungs patchy ground-glass opacities which was a new finding suggesting acute setting of PNA, mild pulmonary edema atelectasis, hypersensitivity pneumonitis, reflux esophagitis, diverticulosis. Patient admitted for PNA, gastritis Review of Systems Review of Systems: All systems reviewed & are unremarkable except as noted in HPI and below PMFSH Past Medical History Medical History (Updated 05/02/25 @ 20:23 by Magalis Madison, MAHESH) Diverticulosis Sinusitis, acute Left otitis media Low iron Kidney function abnormal Iron deficiency anemia due to chronic blood loss Decreased GFR Chronic radicular lumbar pain Chronic pain of right knee Cardiac murmur Fainting Changing skin lesion Contact dermatitis Insomnia Hand tingling Brain aneurysm Low kidney function History of colon polyps Hx of gastric ulcer Hypoglycemia Family history of brain aneurysm Mild diastolic dysfunction Mild atrial enlargement, left Elevated blood pressure reading Rheumatoid arthritis Chronic GERD Brain aneurysm Surgical History Surgical History History of brain shunt Family History Family History Mother Family history of Alzheimer's disease Cerebrovascular accident Father Family history of lung cancer Family history of malignant neoplasm of bone Sibling , cancer Cancer Family history of Alzheimer's disease AA (aortic aneurysm) Social History Social History Smoking status: Former smoker Tobacco type: cigarettes Second hand tobacco smoke exposure: Yes Alcohol intake: never Substance use: never Substance use type: does not use Do You Feel Safe in your Home?: Yes Lack of Transportation: No Lack of Food: Never True Current Housing: I Have Housing Concerned About Future Housing: No Difficulty Paying Gas/Electric Bills: No Difficulty Paying for Meds: No Currently Unemployed: No Education: High School Diploma/GED Difficulty w/ Childcare or Family Care: No Living arrangements: with family Occupation/Education: retired 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 Gender identity (if verbalized by the patient): Female Spiritual care concerns: No Meds Home Medications and Allergies Home Medications ?Medication ?Instructions ?Recorded ?Confirmed ?Type hydroxychloroquine 200 mg tablet 200 mg PO BID 10/22/19 05/02/25 History (Plaquenil) aspirin 81 mg tablet,delayed 81 mg PO DAILY #1 tablet 02/09/23 05/02/25 Rx release adalimumab 40 mg/0.8 mL 40 mg subcut ONCE 10/27/23 05/02/25 History subcutaneous pen kit (Humira Pen) amlodipine 5 mg tablet 5 mg PO DAILY 09/06/24 05/02/25 History blood-glucose sensor (FreeStyle #1 ea 12/05/24 05/02/25 Rx Meg 3 Sensor device) blood-glucose,sex offender treatment professional,cont #1 ea 12/05/24 05/02/25 Rx (FreeStyle Meg 3 [place]) temazepam 15 mg capsule 15 mg PO QHS PRN sleep #30 caps 04/09/25 05/02/25 Rx Allergies Allergy/AdvReac Type Severity Reaction Status Date / Time Penicillins Allergy Mild Unknown Verified 05/02/25 10:06 clindamycin Allergy Unknown Unknown Verified 05/02/25 10:06 meloxicam Allergy Unknown Unknown Verified 05/02/25 10:06 Quinolones Allergy Unknown Unknown Verified 05/02/25 10:06 Sulfa (Sulfonamide Allergy Unknown Unknown Verified 05/02/25 10:06 Antibiotics) sulfanilamide Allergy Unknown Unknown Verified 05/02/25 10:06 Vital Signs Vital Signs - 24 hr 05/02/25 10:01 05/02/25 11:58 05/02/25 14:12 Temperature 98.0 F Pulse Rate 79 85 79 Respiratory Rate 18 20 20 Blood Pressure 155/64 H 157/91 H 138/66 Pulse Oximetry 94 95 92 Oxygen Delivery Room Air Oxygen Flow Rate 05/02/25 16:45 05/02/25 16:45 Temperature Pulse Rate 87 Respiratory Rate 20 Blood Pressure 137/69 Pulse Oximetry 95 95 Oxygen Delivery Nasal Cannula Oxygen Flow Rate 2 Exam Narrative: GENERAL: Ill-appearing, well-nourished, + toxic, in no acute distress, NC with 2 L O2 HEAD: Normocephalic, atraumatic. NECK: Supple. No adenopathy, no masses. RESPIRATORY: Airway patent, respirations nonlabored. Clear to auscultation bilaterally, no rales, rhonchi, wheezing. CARDIOVASCULAR: Regular rate and rhythm without murmurs, rubs, or gallops. Peripheral pulses 2+ and equal bilaterally. ABDOMINAL: Soft, LUQ tenderness, nondistended, no hepatosplenomegaly. Normoactive BS. MUSCULOSKELETAL: Moves all extremities. Strength/ROM intact without gross deformities. SKIN: Warm, dry, normal color. No rashes. NEURO: A&O X3. Speech clear. Cranial nerves II-XII intact. No ataxic movements. PSYCHIATRIC: Appropriate mood and affect. Normal interaction. H&P: Results Labs Labs: Short CBC 05/02/25 Range/Units 10:29 WBC 14.3 H (4.5-10.0) K/mm3 Hgb 12.2 (12.0-15.0) g/dL Hct 38.0 (37.0-47.0) % Plt Count 303 (150-375) k/mm3 [facility] 05/02/25 10:29 Sodium 137 Potassium 4.1 Chloride 102 Carbon Dioxide 24 BUN 13 D Creatinine 1.02 H Glucose 89 Calcium 9.2 Cardiac Enzymes 05/02/25 Range/Units 10:29 Troponin I 0.013 (0.000-0.034) ng/mL Liver Function 05/02/25 Range/Units 10:29 Total Bilirubin 0.7 (0.2-1.3) mg/dL AST 37 H (14-36) U/L ALT 22 (6-35) U/L Alkaline Phosphatase 84 (38-126) U/L Albumin 3.7 (3.5-5.1) g/dL Urine 05/02/25 Range/Units 10:28 Urine Color Yellow (Yellow) Urine Appearance Clear (Clear) Urine pH 7.0 (5.0-9.0) Ur Specific [place] 1.012 (1.001-1.035) Urine Protein Trace (Negative) mg/dL Urine Glucose (UA) Negative (Negative) mg/dL Pulse Oximetry SpO2 results: 95, 2 L NC Attestation: I personally reviewed and interpreted this pulse oximetry as follows: ECG Interpretation: Measurements Intervals [place] Rate: 72 P: 68 VT: 150 QRS: 64 QRSD: 84 T: 43 QT: 394 QTc: 434 Interpretive Statements SINUS RHYTHM BORDERLINE T WAVE ABNORMALITY- ANTERIOR LEADS BASELINE ARTIFACT- I, II, III, AVR, AVL, AVF BORDERLINE ECG No previous ECG available for comparison Electronically Signed On 05-02-2025 12:07:52 CDT by Cornelius Mason D.O. Imaging CT scan - abdomen: Radiologist's impression: 1. No pulmonary embolism. 2. Mosaic attenuation throughout both lungs with perihilar predominant patchy groundglass opacities which is new since the prior study and in the acute setting could represent pneumonia, mild pulmonary edema, atelectasis, hypersensitivity pneumonitis or eosinophilic pneumonia. 3. Prominent edematous wall thickening at the gastric antrum and pylorus with some surrounding from trace stranding most suspicious for peptic ulcer disease or focal gastritis. The stranding abuts the head of the otherwise normal-appearing pancreas and would correlate with lipase levels to exclude less likely acute interstitial pancreatitis. 4. Small sliding-type hiatal hernia with mild wall thickening in the distal esophagus which could be seen with reflux esophagitis. 5. Diverticulosis. Chest x-ray: Radiologist's impression: no acute process Assessment and Plan Assessment and plan (1) Pneumonia: Code(s): J18.9 - Pneumonia, unspecified organism Status: Acute Assessment and Plan: -Suspect CAP, WBC 14.3 - currently requiring 2 L O2 Bronchodilators. Chest x-ray PNA/Pulmonary Edema incentive spirometry while awake. sputum culture ordered influenza/COVID/RSV negative antibiotic therapy q 24 hours ceftriaxone/azithromycin IV supplemental oxygen therapy to maintain oxygen 92% Needs to weaned Guaifenesin b.i.d. Antipyretics for fever and body aches (2) Low oxygen saturation: Code(s): R79.81 - Abnormal blood-gas level Status: Acute Assessment and Plan: Patient with episode of O2 saturation 92%, O2 applied 2 L NC - continue monitor O2 saturation -consider walk test in the a.m. (3) CKD (chronic kidney disease): Code(s): N18.9 - Chronic kidney disease, unspecified Status: Acute Assessment and Plan: creatinine 1.02, GFR 54, patient has history of elevated creatinine of 1.4, in November 2024 -Continue IV hydration NS 0.9%, 125 mL/hr -monitor /record I&O -Repeat BMP in the a.m. -may consider Nephrology for outpatient follow -Continue amlodipine 5 mg p.o. daily (4) Constipation: Code(s): K59.00 - Constipation, unspecified Status: Acute Assessment and Plan: -no evidence of bowel obstruction -Patient reports using stool softeners to aid with constipation - patient requests enema (5) Nausea & vomiting: Code(s): R11.2 - Nausea with vomiting, unspecified Status: Acute Assessment and Plan: -continue fluid resuscitation -Continue monitor BMP, CBC -Monitor/record I&O - advance diet to clear liquids as tolerated in the a.m. (6) Diverticulosis: Code(s): K57.90 - Diverticulosis of intestine, part unspecified, without perforation or abscess without bleeding Status: Acute Assessment and Plan: as evidence by abdominal CTA - NPO after midnight, advance to clear liquid diet as tolerated in the a.m. -Supportive care antiemetics p.r.n. - CT abdomen reveals reflux esophagitis, PUD - may consider GI consult in the a.m. -PPI IV Q12hr Plan Continue home medications: hold home medication Humira Pen, resume at discharge VTE Prophylaxis: enoxaparin subQ DIET: NPO after midnight Anticipated hospital stay: > 2 days Code Status: full code Quality VTE Prophylaxis VTE prophylaxis: mechanical ordered and pharmacologic ordered Hospitalist MIPS Advance Care Plan I have confirmed that the patient's Advanced Care Plan is present, code status is documented, or surrogate decision maker is listed in patient medical record.: Yes Medication Reconciliation I have utilized all available resources to obtain, update and review the patients current medications (includes all prescriptions, OTC, herbals, cannabis, and nutritional supplements).: Yes
[2025-05-02] MEDS: SODIUM CHLORIDE 0.9% IV 800 ML 999 ML IV CONT (18:37)
[2025-05-02] MEDS: SODIUM CHLORIDE 0.9% IV 1,000 ML 125 ML IV CONT (20:45)
[2025-05-02 20:52] VITALS: BMI 36.4; BMI 37.0
[2025-05-02 20:55] VITALS: BP 126/54; PULSE 75; RESP 16; TEMP 36.2; O2SAT 97
--- NOTE | 2025-05-02 20:57 | ADMGEN ---
This patient, Akua Garner, was admitted to [facility] Surg Room 329-01. Patient/family oriented to hospital policies and general routines including ID bracelet, bed and alarms, visiting hours, pain management, procedures, bathroom and other care routines, personal items, smoking policy, room service/diet, and visiting hours. Information on how to activate the Rapid Response Team has been discussed. Patient/Family are encouraged to report perceived risks to care and to ask questions if they do not understand what they are told or what they should do.
[2025-05-02] MEDS: guaiFENesin 12 HR 600 MG TABCR PO (21:28)
[2025-05-02 22:44] VITALS: PULSE 75; RESP 16; O2SAT 97
[2025-05-02] MEDS: TEMAZEPAM (*CRX) 15 MG CAPSULE PO (23:32)
[2025-05-03] VITALS (7 sets, daily range): BP systolic 125–144; BP diastolic 49–66; PULSE 66–73; RESP 14–17; TEMP 36–36.7; O2SAT 90–97
[2025-05-03] MEDS: SODIUM CHLORIDE 0.9% IV 1,000 ML 125 ML IV CONT ×2 (04:58→13:07)
[2025-05-03 06:57] LABS: Hematocrit 33.4 % (37.0-47.0); Hemoglobin 10.4 g/dL (12.0-15.0); Immature Granulocyte Percent A 0.6 % (0-0.5); Lymphocytes Absolute Auto 2.15 K/mm3 (0.9-3.2); Mean Corpuscular HGB Conc 31.1 g/dl (32-36); Mean Corpuscular Hemoglobin 28.6 pg (26-34); Mean Corpuscular Volume 91.8 fl (80-100); Nucleated Red Blood Cells Absolute Auto 0.000 K/mm3 (0.0-0.012); Nucleated Red Blood Cells Perc 0.0 % (0.0-0.2); Platelet Count Result 253 k/mm3 (150-375); Red Blood Count 3.64 M/mm3 (4.2-5.4); White Blood Count 9.9 K/mm3 (4.5-10.0)
[2025-05-03 07:11] LABS: Alanine Aminotransferase 19 U/L (6-35); Albumin Level 3.2 g/dL (3.5-5.1); Alkaline Phosphatase 63 U/L (38-126); Anion Gap 7 mmol/L (4-12); Aspartate Amino Transferase 29 U/L (14-36); Bilirubin,Total 0.5 mg/dL (0.2-1.3); Blood Urea Nitrogen 13 mg/dL (7-17); Calcium 8.1 mg/dL (8.4-10.2); Carbon Dioxide 22 mmol/L (22-30); Chloride 109 mmol/L (98-107); Estimated CRCL calculation 54 ml/min; Estimated Glomerular Filt Rate 56; Glucose 72 mg/dL (65-110); Potassium 4.0 mmol/L (3.4-5.0); Sodium 138 mmol/L (137-145); Total Protein 6.5 g/dL (6.3-8.2)
[2025-05-03] MEDS: guaiFENesin 12 HR 600 MG TABCR PO ×2 (09:08→20:17)
[2025-05-03] MEDS: HYDROXYCHLOROQUINE SULFATE 200 MG TABLET PO ×2 (09:08→17:28)
[2025-05-03] MEDS: PANTOPRAZOLE SODIUM IV 40 MG VIAL IV PUSH ×2 (09:09→20:17)
[2025-05-03] MEDS: ENOXAPARIN 30 MG/0.3 ML SYRINGE SUB-Q (09:09)
--- NOTE | 2025-05-03 16:04 | P.PNIM_ITS ---
Progress Note: A&P Assessment and Plan (1) Pneumonia: Code(s): J18.9 - Pneumonia, unspecified organism Status: Acute Assessment and Plan: -Suspect CAP, WBC 14.3 - currently requiring 2 L O2 Bronchodilators. Chest x-ray PNA/Pulmonary Edema CTA; Chest/Abdomen/Pelvis CTA 05/02/25 12:46 IMPRESSION: 1. No pulmonary embolism. 2. Mosaic attenuation throughout both lungs with perihilar predominant patchy groundglass opacities which is new since the prior study and in the acute setting could represent pneumonia, mild pulmonary edema, atelectasis, hypersensitivity pneumonitis or eosinophilic pneumonia. 3. Prominent edematous wall thickening at the gastric antrum and pylorus with some surrounding from trace stranding most suspicious for peptic ulcer disease or focal gastritis. The stranding abuts the head of the otherwise normal- appearing pancreas and would correlate with lipase levels to exclude less likely acute interstitial pancreatitis. 4. Small sliding-type hiatal hernia with mild wall thickening in the distal esophagus which could be seen with reflux esophagitis. 5. Diverticulosis incentive spirometry while awake. sputum culture ordered influenza/COVID/RSV negative antibiotic therapy q 24 hours ceftriaxone/azithromycin IV supplemental oxygen therapy to maintain oxygen 92% Needs to weaned Guaifenesin b.i.d. Antipyretics for fever and body aches (2) Low oxygen saturation: Code(s): R79.81 - Abnormal blood-gas level Status: Acute Assessment and Plan: Patient with episode of O2 saturation 92%, O2 applied 2 L NC - continue monitor O2 saturation wean oxygen as tolerated (3) CKD (chronic kidney disease): Code(s): N18.9 - Chronic kidney disease, unspecified Status: Acute Assessment and Plan: creatinine 1.02, GFR 54, patient has history of elevated creatinine of 1.4, in November 2024 received ivf will stop ivf. cr stable. (4) Constipation: Code(s): K59.00 - Constipation, unspecified Status: Acute Assessment and Plan: -no evidence of bowel obstruction -Patient reports using stool softeners to aid with constipation - patient requests enema (5) Nausea & vomiting: Code(s): R11.2 - Nausea with vomiting, unspecified Status: Acute Assessment and Plan: -continue fluid resuscitation -Continue monitor BMP, CBC -Monitor/record I&O - advance diet as tolerated (6) Diverticulosis: Code(s): K57.90 - Diverticulosis of intestine, part unspecified, without perforation or abscess without bleeding Status: Acute Assessment and Plan: as evidence by abdominal CTA -Supportive care antiemetics p.r.n. - CT abdomen reveals reflux esophagitis, PUD -PPI IV Q12hr check stool ag h pylori Plan Continue home medications: hold home medication Humira Pen, resume at discharge VTE Prophylaxis: enoxaparin subQ DIET: NPO after midnight Anticipated hospital stay: > 2 days Code Status: full code Subjective Date/time seen: 05/03/25 16:04 Interval history: Feels better today. Denies shortness of breath. Mild cough present. Reports some epigastric pain Review of Systems Review of Systems: All systems reviewed & are unremarkable except as noted in HPI and below Exam Narrative: GENERAL: Well-appearing, well-nourished, in no acute distress, NC with 2 L O2 HEAD: Normocephalic, atraumatic. NECK: Supple. No adenopathy, no masses. RESPIRATORY: Airway patent, respirations nonlabored. Clear to auscultation bilaterally, no rales, rhonchi, wheezing. CARDIOVASCULAR: Regular rate and rhythm without murmurs, rubs, or gallops. Peripheral pulses 2+ and equal bilaterally. ABDOMINAL: Soft, epigastric tenderness mild, nondistended, no hepatosplenomegaly. Normoactive BS. MUSCULOSKELETAL: Moves all extremities. Strength/ROM intact without gross deformities. SKIN: Warm, dry, normal color. No rashes. NEURO: A&O X3. Speech clear. Cranial nerves II-XII intact. No ataxic movements. PSYCHIATRIC: Appropriate mood and affect. Normal interaction. Objective Data Vital Signs Vital Signs: Vital Signs - 24 hr 05/02/25 16:45 05/02/25 16:45 05/02/25 20:55 Temperature 97.1 F L Pulse Rate 87 75 Respiratory Rate 20 16 Blood Pressure 137/69 126/54 L Pulse Oximetry 95 95 97 Oxygen Delivery Nasal Cannula Oxygen Flow Rate 2 05/02/25 22:44 05/03/25 00:00 05/03/25 04:00 Temperature 97.1 F L 98.1 F Pulse Rate 75 73 69 Respiratory Rate 16 14 14 Blood Pressure 131/53 L 125/59 L Pulse Oximetry 97 95 96 Oxygen Delivery Nasal Cannula Oxygen Flow Rate 2 05/03/25 08:00 05/03/25 08:00 05/03/25 08:43 Temperature 96.9 F L Pulse Rate 72 Respiratory Rate 16 Blood Pressure 128/55 L Pulse Oximetry 94 97 90 Oxygen Delivery Nasal Cannula Nasal Cannula Oxygen Flow Rate 2 2 05/03/25 12:00 Temperature 96.8 F L Pulse Rate 66 Respiratory Rate 16 Blood Pressure 128/49 L Pulse Oximetry 95 Oxygen Delivery Oxygen Flow Rate Intake/Output Intake/Output: Intake & Output 04/30/25 05/01/25 05/02/25 05/03/25 23:59 23:59 23:59 23:59 Intake Total 2100 2670 Output Total 750 Balance 2100 1920 Meds/Results Medications: Active Medications Generic Name Dose Route Start Last Admin Trade Name Freq PRN Reason Stop Dose Admin Albuterol 2 puff 05/02/25 20:34 Albuterol Sulfate (*Sp) Aerosol 1 Puff INHALATION Q6HRT PRN Shortness Of Breath Amlodipine Besylate 5 mg 05/03/25 09:00 05/03/25 09:08 Amlodipine Besylate 5 Mg Tablet PO 5 mg DAILY HARRIETT Administration Enoxaparin Sodium 30 mg 05/03/25 09:00 05/03/25 09:09 Enoxaparin 30 Mg/0.3 Ml Syringe SUB-Q 30 mg DAILY HARRIETT Administration Guaifenesin 600 mg 05/02/25 21:00 05/03/25 09:08 Guaifenesin 12 Hr 600 Mg Tabcr PO 600 mg Q12HR HARRIETT Administration Hydroxychloroquine Sulfate 200 mg 05/03/25 09:00 05/03/25 09:08 Hydroxychloroquine Sulfate 200 Mg Tablet PO 200 mg BID HARRIETT Administration Sodium Chloride 1,000 mls @ 125 mls/hr 05/02/25 16:10 05/03/25 13:07 Normal Saline Iv IV CONT 125 mls/hr .Q8H HARRIETT Administration Azithromycin 500 mg in 250 mls @ 250 mls/hr 05/03/25 17:00 Zithromax IVPB Q24H HARRIETT Ceftriaxone Sodium 1 gm in 50 mls @ 100 mls/hr 05/03/25 19:00 Rocephin 1 Gm/Ns 50 Ml IVPB Q24H HARRIETT Pantoprazole Sodium 40 mg 05/03/25 09:00 05/03/25 09:09 Pantoprazole Sodium Iv 40 Mg Vial IV PUSH 40 mg Q12HR HARRIETT Administration Temazepam 15 mg 05/02/25 20:58 05/02/25 23:32 Temazepam (*Crx) 15 Mg Capsule PO 15 mg QHS PRN Administration sleep Radiology Results: ITS Impressions Chest/Abdomen/Pelvis CTA 05/02/25 12:46 IMPRESSION: 1. No pulmonary embolism. 2. Mosaic attenuation throughout both lungs with perihilar predominant patchy groundglass opacities which is new since the prior study and in the acute setting could represent pneumonia, mild pulmonary edema, atelectasis, hypersensitivity pneumonitis or eosinophilic pneumonia. 3. Prominent edematous wall thickening at the gastric antrum and pylorus with some surrounding from trace stranding most suspicious for peptic ulcer disease or focal gastritis. The stranding abuts the head of the otherwise normal- appearing pancreas and would correlate with lipase levels to exclude less likely acute interstitial pancreatitis. 4. Small sliding-type hiatal hernia with mild wall thickening in the distal esophagus which could be seen with reflux esophagitis. 5. Diverticulosis. Chest X-Ray 05/02/25 13:36 IMPRESSION: No acute process. Labs Labs: Laboratory Results - last 24 hr 05/02/25 05/03/25 16:29 06:06 WBC 9.9 RBC 3.64 L Hgb 10.4 L Hct 33.4 L MCV 91.8 D MCH 28.6 MCHC 31.1 L RDW 13.5 Plt Count 253 MPV 10.5 H Immature Gran % (Auto) 0.6 H Neut % (Auto) 64.9 Lymph % (Auto) 21.6 [place] % (Auto) 8.4 Eos % (Auto) 4.0 Baso % (Auto) 0.5 Lymph # (Auto) 2.15 [place] # (Auto) 0.8 H Eos # (Auto) 0.4 H Baso # (Auto) 0.1 Abs Immat Gran (auto) 0.06 H Absolute Neuts (auto) 6.5 Absolute Nucleated RBC 0.000 Nucleated RBC % 0.0 Sodium 138 Potassium 4.0 Chloride 109 H Carbon Dioxide 22 Anion Gap 7 BUN 13 Creatinine 0.98 Estim Creat Clear Calc 54 Estimated GFR 56 L Glucose 72 Calcium 8.1 L Total Bilirubin 0.5 AST 29 ALT 19 Alkaline Phosphatase 63 Total Protein 6.5 Albumin 3.2 L Influenza A (RT-PCR) Negative Influenza B (RT-PCR) Negative RSV (RT-PCR) Negative SARS-CoV-2 RNA (RT-PCR) Negative
[2025-05-03] MEDS: AZITHROMYCIN 500 MG/NS 250 ML 500 MG/250 ML BAG 250 MG IVPB (17:28)
[2025-05-03] MEDS: TEMAZEPAM (*CRX) 15 MG CAPSULE PO (22:26)
[2025-05-04] VITALS (7 sets, daily range): BP systolic 115–150; BP diastolic 45–75; PULSE 64–77; RESP 12–20; TEMP 36.2–37.2; O2SAT 90–96
[2025-05-04 07:09] LABS: Hematocrit 32.0 % (37.0-47.0); Hemoglobin 9.9 g/dL (12.0-15.0); Immature Granulocyte Percent A 0.5 % (0-0.5); Lymphocytes Absolute Auto 1.87 K/mm3 (0.9-3.2); Mean Corpuscular HGB Conc 30.9 g/dl (32-36); Mean Corpuscular Hemoglobin 28.4 pg (26-34); Mean Corpuscular Volume 91.7 fl (80-100); Nucleated Red Blood Cells Absolute Auto 0.000 K/mm3 (0.0-0.012); Nucleated Red Blood Cells Perc 0.0 % (0.0-0.2); Platelet Count Result 246 k/mm3 (150-375); Red Blood Count 3.49 M/mm3 (4.2-5.4); White Blood Count 8.6 K/mm3 (4.5-10.0)
[2025-05-04 07:22] LABS: Alanine Aminotransferase 18 U/L (6-35); Albumin Level 2.9 g/dL (3.5-5.1); Alkaline Phosphatase 58 U/L (38-126); Anion Gap 7 mmol/L (4-12); Aspartate Amino Transferase 32 U/L (14-36); Bilirubin,Total 0.3 mg/dL (0.2-1.3); Blood Urea Nitrogen 8 mg/dL (7-17); Calcium 8.5 mg/dL (8.4-10.2); Carbon Dioxide 22 mmol/L (22-30); Chloride 110 mmol/L (98-107); Estimated CRCL calculation 55 ml/min; Estimated Glomerular Filt Rate 57; Glucose 79 mg/dL (65-110); Potassium 4.1 mmol/L (3.4-5.0); Sodium 139 mmol/L (137-145); Total Protein 6.1 g/dL (6.3-8.2)
[2025-05-04] MEDS: ENOXAPARIN 30 MG/0.3 ML SYRINGE SUB-Q (08:14)
[2025-05-04] MEDS: guaiFENesin 12 HR 600 MG TABCR PO ×2 (08:14→21:27)
[2025-05-04] MEDS: HYDROXYCHLOROQUINE SULFATE 200 MG TABLET PO ×2 (08:14→16:03)
[2025-05-04] MEDS: PANTOPRAZOLE SODIUM IV 40 MG VIAL IV PUSH ×2 (08:14→21:27)
--- NOTE | 2025-05-04 11:53 | P.PNIM_ITS ---
Progress Note: A&P Assessment and Plan (1) Pneumonia: Code(s): J18.9 - Pneumonia, unspecified organism Status: Acute Assessment and Plan: -Suspect CAP, WBC 14.3 - currently requiring 2 L O2 Bronchodilators. Chest x-ray PNA/Pulmonary Edema CTA; Chest/Abdomen/Pelvis CTA 05/02/25 12:46 IMPRESSION: 1. No pulmonary embolism. 2. Mosaic attenuation throughout both lungs with perihilar predominant patchy groundglass opacities which is new since the prior study and in the acute setting could represent pneumonia, mild pulmonary edema, atelectasis, hypersensitivity pneumonitis or eosinophilic pneumonia. 3. Prominent edematous wall thickening at the gastric antrum and pylorus with some surrounding from trace stranding most suspicious for peptic ulcer disease or focal gastritis. The stranding abuts the head of the otherwise normal- appearing pancreas and would correlate with lipase levels to exclude less likely acute interstitial pancreatitis. 4. Small sliding-type hiatal hernia with mild wall thickening in the distal esophagus which could be seen with reflux esophagitis. 5. Diverticulosis incentive spirometry while awake. sputum culture ordered influenza/COVID/RSV negative antibiotic therapy q 24 hours ceftriaxone/azithromycin IV supplemental oxygen therapy to maintain oxygen 92% Needs to weaned Guaifenesin b.i.d. Antipyretics for fever and body aches Gradually improving, continue current treatment monitor closely. (2) Low oxygen saturation: Code(s): R79.81 - Abnormal blood-gas level Status: Acute Assessment and Plan: Patient with episode of O2 saturation 92%, O2 applied 2 L NC - continue monitor O2 saturation wean oxygen as tolerated (3) CKD (chronic kidney disease): Code(s): N18.9 - Chronic kidney disease, unspecified Status: Acute Assessment and Plan: creatinine 1.02, GFR 54, patient has history of elevated creatinine of 1.4, in November 2024 received ivf will stop ivf. cr stable. (4) Constipation: Code(s): K59.00 - Constipation, unspecified Status: Acute Assessment and Plan: -no evidence of bowel obstruction -Patient reports using stool softeners to aid with constipation - patient requests enema (5) Nausea & vomiting: Code(s): R11.2 - Nausea with vomiting, unspecified Status: Acute Assessment and Plan: -continue fluid resuscitation -Continue monitor BMP, CBC -Monitor/record I&O - advance diet as tolerated (6) Diverticulosis: Code(s): K57.90 - Diverticulosis of intestine, part unspecified, without perforation or abscess without bleeding Status: Acute Assessment and Plan: as evidence by abdominal CTA -Supportive care antiemetics p.r.n. - CT abdomen reveals reflux esophagitis, PUD -PPI IV Q12hr check stool ag h pylori Plan Continue home medications: hold home medication Humira Pen, resume at discharge VTE Prophylaxis: enoxaparin subQ DIET: NPO after midnight Anticipated hospital stay: > 2 days Code Status: full code Subjective Date/time seen: 05/04/25 11:53 Interval history: Pneumonia, Hypertension. Patient was seen during the morning rounds today. No new overnight complaints. Feels better today. Denies shortness of breath. Mild cough present. Reports some epigastric pain Review of Systems Review of Systems: All systems reviewed & are unremarkable except as noted in HPI and below Exam Narrative: GENERAL: Well-appearing, well-nourished, in no acute distress, NC with 2 L O2 HEAD: Normocephalic, atraumatic. NECK: Supple. No adenopathy, no masses. RESPIRATORY: Airway patent, respirations nonlabored. Clear to auscultation bilaterally, no rales, rhonchi, wheezing. CARDIOVASCULAR: Regular rate and rhythm without murmurs, rubs, or gallops. Peripheral pulses 2+ and equal bilaterally. ABDOMINAL: Soft, epigastric tenderness mild, nondistended, no hepatosplenomegaly. Normoactive BS. MUSCULOSKELETAL: Moves all extremities. Strength/ROM intact without gross deformities. SKIN: Warm, dry, normal color. No rashes. NEURO: A&O X3. Speech clear. Cranial nerves II-XII intact. No ataxic movements. PSYCHIATRIC: Appropriate mood and affect. Normal interaction. Objective Data Vital Signs Vital Signs: Vital Signs - 24 hr 05/03/25 12:00 05/03/25 16:00 05/03/25 20:00 Temperature 36.0 C L 36.1 C L 36.2 C L Pulse Rate 66 70 70 Respiratory Rate 16 16 17 Blood Pressure 128/49 L 144/66 H 135/59 L Pulse Oximetry 95 97 94 Oxygen Delivery Oxygen Flow Rate 05/04/25 00:00 05/04/25 04:00 05/04/25 08:00 Temperature 36.2 C L 36.3 C L 36.5 C Pulse Rate 68 68 69 Respiratory Rate 12 16 18 Blood Pressure 115/53 L 119/45 L 139/75 Pulse Oximetry 95 96 96 Oxygen Delivery Oxygen Flow Rate 05/04/25 08:14 Temperature Pulse Rate 69 Respiratory Rate 18 Blood Pressure Pulse Oximetry 96 Oxygen Delivery Nasal Cannula Oxygen Flow Rate 1.5 Intake/Output Intake/Output: Intake & Output 05/01/25 05/02/25 05/03/25 05/04/25 23:59 23:59 23:59 23:59 Intake Total 2100 2892 500 Output Total 1350 Balance 2100 1542 500 Meds/Results Medications: Active Medications Generic Name Dose Route Start Last Admin Trade Name Freq PRN Reason Stop Dose Admin Albuterol 2 puff 05/02/25 20:34 Albuterol Sulfate (*Sp) Aerosol 1 Puff INHALATION Q6HRT PRN Shortness Of Breath Amlodipine Besylate 5 mg 05/03/25 09:00 05/04/25 08:14 Amlodipine Besylate 5 Mg Tablet PO 5 mg DAILY HARRIETT Administration Enoxaparin Sodium 40 mg 05/05/25 09:00 Enoxaparin 40 Mg/0.4 Ml Syringe SUB-Q DAILY HARRIETT Guaifenesin 600 mg 05/02/25 21:00 05/04/25 08:14 Guaifenesin 12 Hr 600 Mg Tabcr PO 600 mg Q12HR HARRIETT Administration Hydroxychloroquine Sulfate 200 mg 05/03/25 09:00 05/04/25 08:14 Hydroxychloroquine Sulfate 200 Mg Tablet PO 200 mg BID HARRIETT Administration Azithromycin 500 mg in 250 mls @ 250 mls/hr 05/03/25 17:00 05/03/25 17:28 Zithromax IVPB 250 mls/hr Q24H HARRIETT Administration Ceftriaxone Sodium 1 gm in 50 mls @ 100 mls/hr 05/03/25 19:00 05/03/25 18:48 Rocephin 1 Gm/Ns 50 Ml IVPB 100 mls/hr Q24H HARRIETT Administration Pantoprazole Sodium 40 mg 05/03/25 09:00 05/04/25 08:14 Pantoprazole Sodium Iv 40 Mg Vial IV PUSH 40 mg Q12HR HARRIETT Administration Perflutren Lipid Microsphere 0 ml 05/03/25 16:15 Perflutren Lipid Microspheres 1.5 Ml Vial Diluted To 10 Ml Total Volume IV PUSH 05/06/25 16:15 ONCE PRN adequate visualization Protocol Polyethylene Glycol 17 gm 05/04/25 09:00 05/04/25 08:14 Polyethylene Glycol 3350 17 Gm Powd.Pack PO 17 gm QAM HARRIETT Administration Temazepam 15 mg 05/02/25 20:58 05/03/25 22:26 Temazepam (*Crx) 15 Mg Capsule PO 15 mg QHS PRN Administration sleep Radiology Results: ITS Impressions Chest/Abdomen/Pelvis CTA 05/02/25 12:46 IMPRESSION: 1. No pulmonary embolism. 2. Mosaic attenuation throughout both lungs with perihilar predominant patchy groundglass opacities which is new since the prior study and in the acute setting could represent pneumonia, mild pulmonary edema, atelectasis, hypersensitivity pneumonitis or eosinophilic pneumonia. 3. Prominent edematous wall thickening at the gastric antrum and pylorus with some surrounding from trace stranding most suspicious for peptic ulcer disease or focal gastritis. The stranding abuts the head of the otherwise normal- appearing pancreas and would correlate with lipase levels to exclude less likely acute interstitial pancreatitis. 4. Small sliding-type hiatal hernia with mild wall thickening in the distal esophagus which could be seen with reflux esophagitis. 5. Diverticulosis. Chest X-Ray 05/02/25 13:36 IMPRESSION: No acute process. Labs Labs: Laboratory Results - last 24 hr 05/04/25 06:07 WBC 8.6 RBC 3.49 L Hgb 9.9 L Hct 32.0 L MCV 91.7 MCH 28.4 MCHC 30.9 L RDW 13.4 Plt Count 246 MPV 10.6 H Immature Gran % (Auto) 0.5 Neut % (Auto) 61.4 Lymph % (Auto) 21.7 [place] % (Auto) 9.3 H Eos % (Auto) 6.5 H Baso % (Auto) 0.6 Lymph # (Auto) 1.87 [place] # (Auto) 0.8 H Eos # (Auto) 0.6 H Baso # (Auto) 0.1 Abs Immat Gran (auto) 0.04 H Absolute Neuts (auto) 5.3 Absolute Nucleated RBC 0.000 Nucleated RBC % 0.0 Sodium 139 Potassium 4.1 Chloride 110 H Carbon Dioxide 22 Anion Gap 7 BUN 8 D Creatinine 0.97 Estim Creat Clear Calc 55 Estimated GFR 57 L Glucose 79 Calcium 8.5 Total Bilirubin 0.3 AST 32 ALT 18 Alkaline Phosphatase 58 Total Protein 6.1 L Albumin 2.9 L Quality VTE Prophylaxis VTE prophylaxis: mechanical ordered and pharmacologic ordered
[2025-05-04] MEDS: AZITHROMYCIN 500 MG/NS 250 ML 500 MG/250 ML BAG 250 MG IVPB (16:01)
[2025-05-04] MEDS: TEMAZEPAM (*CRX) 15 MG CAPSULE PO (21:27)
[2025-05-05] VITALS: BP 104/72; PULSE 75; RESP 16; TEMP 36.9; O2SAT 100
--- NOTE | 2025-05-05 | ECHO_ITS ---
Patient Info Name: Akua Garner Age: 69 years : 1955 Gender: Female Ht: 63 in Wt: 211 lbs BSA: 2.11 m2 HR: 73 bpm BP: 133 / 61 mmHg Technical Quality: Fair Exam Date: 05/05/2025 1:30 PM Patient Status: I Admit Date: 05/03/2025 Exam Type: CA echo dop color flow w con Complete two-dimensional, color flow and Doppler transthoracic echocardiogram is performed with contrast to opacify the left ventricle and to improve the deliniation of the left ventricle endocardial borders. Staff Referring Physician: Adele Beck Career Development Coordinator/Teacher: Chantel Salvador Attending Provider: Juanjose Wetzel Contrast/Agitated Saline Contrast/Ag. Saline: Definity Amount: 2.00 ml Administered By: Chantel Salvador Existing IV Access: Yes IV Access Condition: patent with no signs of infiltration Summary 1. Left ventricular systolic function is normal, estimated at 65-70. 2. The left ventricular diastolic function is normal. 3. The pulmonic valve is normal. 4. There is mild tricuspid valve regurgitation. 5. No pulmonary hypertension, estimated pulmonary arterial systolic pressure is 32 mmHg. 6. There is trace mitral valve regurgitation. Left Ventricle Left ventricular chamber dimension is normal. Left ventricular systolic function is normal, estimated at 65-70. There is no increased left ventricular wall thickness. Left ventricular septal wall motion is normal. The left ventricular diastolic function is normal. Right Ventricle Right ventricular chamber dimension is normal. Right ventricular systolic function is normal. Left Atria Left atrial chamber dimension is normal. Right Atria Right atrial chamber dimension is normal. Aortic Valve The aortic valve is trileaflet. There is no aortic valve sclerosis. There is no aortic valve stenosis. There is no aortic valve regurgitation. Pulmonic Valve The pulmonic valve is normal. There is no pulmonic valve stenosis. There is mild pulmonic regurgitation. Mitral Valve The mitral valve has normal leaflets. There is no mitral valve stenosis. There is trace mitral valve regurgitation. Tricuspid Valve The tricuspid valve leaflets are normal. There is no significant tricuspid valve stenosis. There is mild tricuspid valve regurgitation. No pulmonary hypertension, estimated pulmonary arterial systolic pressure is 32 mmHg. Pericardium/Pleural The pericardium appears normal. There is no pericardial effusion. Inferior Vena Cava Normal inferior vena cava with >50% collapse upon inspiration consistent with normal right atrial pressure, 5 mmHg. Aorta The aortic root size at the sinus of Valsalva is normal. The prox ascending aorta size is normal. Left Ventricular Outflow Tract Name Value Normal LVOT 2D LVOT Diameter 2.0 cm LVOT Doppler LVOT Peak Velocity 120 cm/s LVOT Peak Gradient 6 mmHg LVOT Mean Gradient 3 mmHg LVOT VTI 28 cm LVOT VTI/AV VTI Ratio 0.7 LVOT Stroke Volume 85 ml LVOT CO 5.9 l/min LVOT CI 2.8 l/min/m2 Pulmonic Valve Name Value Normal RVOT Doppler RVOT Peak Velocity 82 cm/s RVOT Peak Gradient 3 mmHg PV Doppler PV Peak Velocity 97 cm/s PV Peak Gradient 4 mmHg Mitral Valve Name Value Normal MV Diastolic Function MV E Peak Velocity 112 cm/s MV A Peak Velocity 70 cm/s MV E/A 1.6 MV Decel Time (PW) 245 ms MV Annular TDI MV E/e' (Septal) 11.9 MV E/e' (Lateral) 12.7 MV E/e' (Average) 12.3 Tricuspid Valve Name Value Normal TV Regurgitation Doppler TR Peak Velocity 262 cm/s TR Peak Gradient 26 mmHg Estimated PAP/RSVP RA Pressure 5 mmHg <=5 PA Systolic Pressure 32 mmHg <36 RV Systolic Pressure 32 mmHg <36 TV Annular TDI TV Lateral Naima s' Velocity 17.5 cm/s >=9.5 Aortic Valve Name Value Normal AV Doppler AV Peak Velocity 170 cm/s AV Peak Gradient 12 mmHg AV Mean Gradient 6 mmHg AV VTI 38 cm AV Area (Cont Eq VTI) 2.2 cm2 >=3.0 AV Area (Cont Eq Ash) 2.1 cm2 AV DI (Ash) 0.71 AV Regurgitation 2D LVOT Area 3.0 cm2 Ventricles Name Value Normal LV Dimensions 2D/MM IVS Diastolic Thickness (2D) 0.9 cm 0.6-1.0 LVID Diastole (2D) 4.3 cm 3.8-5.2 LVIW Diastolic Thickness (2D) 0.9 cm 0.6-0.9 LVID Systole (2D) 2.5 cm 2.2-3.5 LVOT Diameter 2.0 cm LV Mass (2D Cubed) 119.88 g 67.00-162.00 LV Mass Index (2D Cubed) 57 g/m2 43-95 Relative Wall Thickness (2D) 0.40 <=0.42 LV Fractional Shortening/Ejection Fraction 2D/MM LV Fractional Shortening (2D) 42 % 27-45 LV EF (2D Teichholz) 73 % LV Diastolic Volume (4C MOD) 78 ml LV EF (4C MOD) 80 % LV Diastolic Volume (2C MOD) 81 ml LV EF (2C MOD) 79 % LV Diastolic Volume (BP MOD) 81 ml 46-106 LV Diastolic Volume Index (BP MOD) 38 ml/m2 29-61 LV Systolic Volume (BP MOD) 17 ml 14-42 LV Systolic Volume Index (BP MOD) 8 ml/m2 8-24 LV EF (BP MOD) 80 % 54-74 LV Diastolic Length (4C) 6.9 cm LV Systolic Length (4C) 5.3 cm LV Stroke Volume (4C MOD) 63 ml Atria Name Value Normal LA Dimensions LA Volume (4C A-L) 54 ml LA Volume (BP A-L) 54 ml RA Dimensions RA Area (4C) 17.9 cm2 <=18.0 Report Signatures
[2025-05-05 04:00] VITALS: BP 133/61; PULSE 73; RESP 20; TEMP 36.9; O2SAT 96
[2025-05-05 06:27] VITALS: BP 133/61; PULSE 73; RESP 20; TEMP 36.9; O2SAT 96
[2025-05-05 06:46] LABS: Hematocrit 32.1 % (37.0-47.0); Hemoglobin 10.0 g/dL (12.0-15.0); Immature Granulocyte Percent A 0.6 % (0-0.5); Lymphocytes Absolute Auto 1.54 K/mm3 (0.9-3.2); Mean Corpuscular HGB Conc 31.2 g/dl (32-36); Mean Corpuscular Hemoglobin 28.1 pg (26-34); Mean Corpuscular Volume 90.2 fl (80-100); Nucleated Red Blood Cells Absolute Auto 0.000 K/mm3 (0.0-0.012); Nucleated Red Blood Cells Perc 0.0 % (0.0-0.2); Platelet Count Result 262 k/mm3 (150-375); Red Blood Count 3.56 M/mm3 (4.2-5.4); White Blood Count 7.0 K/mm3 (4.5-10.0)
[2025-05-05 07:07] LABS: Alanine Aminotransferase 20 U/L (6-35); Albumin Level 3.2 g/dL (3.5-5.1); Alkaline Phosphatase 56 U/L (38-126); Anion Gap 6 mmol/L (4-12); Aspartate Amino Transferase 34 U/L (14-36); Bilirubin,Total 0.3 mg/dL (0.2-1.3); Blood Urea Nitrogen 5 mg/dL (7-17); Calcium 8.8 mg/dL (8.4-10.2); Carbon Dioxide 24 mmol/L (22-30); Chloride 109 mmol/L (98-107); Estimated CRCL calculation 53 ml/min; Estimated Glomerular Filt Rate 55; Glucose 86 mg/dL (65-110); Potassium 3.9 mmol/L (3.4-5.0); Sodium 139 mmol/L (137-145); Total Protein 6.5 g/dL (6.3-8.2)
[2025-05-05 08:00] VITALS: BP 127/58; PULSE 75; RESP 20; TEMP 36.5; O2SAT 96
[2025-05-05] MEDS: ENOXAPARIN 40 MG/0.4 ML SYRINGE SUB-Q (08:37)
[2025-05-05] MEDS: guaiFENesin 12 HR 600 MG TABCR PO ×2 (08:37→20:34)
[2025-05-05] MEDS: PANTOPRAZOLE SODIUM IV 40 MG VIAL IV PUSH ×2 (08:37→20:33)
[2025-05-05] MEDS: HYDROXYCHLOROQUINE SULFATE 200 MG TABLET PO ×2 (08:37→16:54)
[2025-05-05] MEDS: PERFLUTREN LIPID MICROSPHERES 1.5 ML VIAL DILUTED TO 10 ML TOTAL VOLUME IV PUSH (14:04)
--- NOTE | 2025-05-05 14:23 | P.PNIM_ITS ---
Progress Note: A&P Assessment and Plan (1) Pneumonia: Code(s): J18.9 - Pneumonia, unspecified organism Status: Acute Assessment and Plan: -Suspect CAP, WBC 14.3 - currently requiring 2 L O2 Bronchodilators. Chest x-ray PNA/Pulmonary Edema CTA; Chest/Abdomen/Pelvis CTA 05/02/25 12:46 IMPRESSION: 1. No pulmonary embolism. 2. Mosaic attenuation throughout both lungs with perihilar predominant patchy groundglass opacities which is new since the prior study and in the acute setting could represent pneumonia, mild pulmonary edema, atelectasis, hypersensitivity pneumonitis or eosinophilic pneumonia. 3. Prominent edematous wall thickening at the gastric antrum and pylorus with some surrounding from trace stranding most suspicious for peptic ulcer disease or focal gastritis. The stranding abuts the head of the otherwise normal- appearing pancreas and would correlate with lipase levels to exclude less likely acute interstitial pancreatitis. 4. Small sliding-type hiatal hernia with mild wall thickening in the distal esophagus which could be seen with reflux esophagitis. 5. Diverticulosis incentive spirometry while awake. sputum culture ordered influenza/COVID/RSV negative antibiotic therapy q 24 hours ceftriaxone/azithromycin IV supplemental oxygen therapy to maintain oxygen 92% Needs to weaned Guaifenesin b.i.d. Antipyretics for fever and body aches Continue azithromycin ceftriaxone IV since May 03 May change to oral antibiotics tomorrow (2) Low oxygen saturation: Code(s): R79.81 - Abnormal blood-gas level Status: Acute Assessment and Plan: Patient with episode of O2 saturation 92%, O2 applied 2 L NC - continue monitor O2 saturation wean oxygen as tolerated (3) CKD (chronic kidney disease): Code(s): N18.9 - Chronic kidney disease, unspecified Status: Acute Assessment and Plan: creatinine 1.02, GFR 54, patient has history of elevated creatinine of 1.4, in November 2024 received ivf will stop ivf. cr stable. (4) Constipation: Code(s): K59.00 - Constipation, unspecified Status: Acute Assessment and Plan: -no evidence of bowel obstruction -Patient reports using stool softeners to aid with constipation - patient requests enema (5) Nausea & vomiting: Code(s): R11.2 - Nausea with vomiting, unspecified Status: Acute Assessment and Plan: Received fluid resuscitation -Continue monitor BMP, CBC -Monitor/record I&O Tolerate full liquid diet Advance to solid diet (6) Diverticulosis: Code(s): K57.90 - Diverticulosis of intestine, part unspecified, without perforation or abscess without bleeding Status: Acute Assessment and Plan: as evidence by abdominal CTA -Supportive care antiemetics p.r.n. - CT abdomen reveals reflux esophagitis, PUD -PPI IV Q12hr check stool ag h pylori Plan May discharge patient tomorrow if if patient can not tolerate diet VTE Prophylaxis: enoxaparin subQ Code Status: full code Subjective Date/time seen: 05/05/25 14:23 Interval history: Patient still has epigastric discomfort, tolerate full liquid diet Denies nausea vomiting Exam Narrative: GENERAL: Well-appearing, well-nourished, in no acute distress, NC with 2 L O2 HEAD: Normocephalic, atraumatic. NECK: Supple. No adenopathy, no masses. RESPIRATORY: Airway patent, respirations nonlabored. Clear to auscultation bilaterally, no rales, rhonchi, wheezing. CARDIOVASCULAR: Regular rate and rhythm without murmurs, rubs, or gallops. Peripheral pulses 2+ and equal bilaterally. ABDOMINAL: Soft, epigastric tenderness mild, nondistended, no hepatosplenomegaly. Normoactive BS. MUSCULOSKELETAL: Moves all extremities. Strength/ROM intact without gross deformities. SKIN: Warm, dry, normal color. No rashes. NEURO: A&O X3. Speech clear. Cranial nerves II-XII intact. No ataxic movements. PSYCHIATRIC: Appropriate mood and affect. Normal interaction. Objective Data Vital Signs Vital Signs: Vital Signs - 24 hr 05/04/25 15:11 05/04/25 20:00 05/04/25 20:00 Temperature 97.2 F L 98.9 F Pulse Rate 64 72 72 Respiratory Rate 18 20 20 Blood Pressure 134/61 137/66 Pulse Oximetry 96 90 90 Oxygen Delivery Nasal Cannula Oxygen Flow Rate 1.5 05/05/25 00:00 05/05/25 04:00 05/05/25 06:27 Temperature 98.5 F 98.4 F 98.4 F Pulse Rate 75 73 73 Respiratory Rate 16 20 20 Blood Pressure 104/72 133/61 133/61 Pulse Oximetry 100 96 96 Oxygen Delivery Oxygen Flow Rate 05/05/25 08:00 05/05/25 08:00 Temperature 97.7 F Pulse Rate 75 Respiratory Rate 20 Blood Pressure 127/58 L Pulse Oximetry 96 96 Oxygen Delivery Nasal Cannula Oxygen Flow Rate 1.5 Intake/Output Intake/Output: Intake & Output 05/02/25 05/03/25 05/04/25 05/05/25 23:59 23:59 23:59 23:59 Intake Total 2100 3192 1651 1060 Output Total 1350 Balance 2100 1842 1651 1060 Meds/Results Medications: Active Medications Generic Name Dose Route Start Last Admin Trade Name Freq PRN Reason Stop Dose Admin Albuterol 2 puff 05/02/25 20:34 Albuterol Sulfate (*Sp) Aerosol 1 Puff INHALATION Q6HRT PRN Shortness Of Breath Amlodipine Besylate 5 mg 05/03/25 09:00 05/05/25 08:37 Amlodipine Besylate 5 Mg Tablet PO 5 mg DAILY HARRIETT Administration Enoxaparin Sodium 40 mg 05/05/25 09:00 05/05/25 08:37 Enoxaparin 40 Mg/0.4 Ml Syringe SUB-Q 40 mg DAILY HARRIETT Administration Guaifenesin 600 mg 05/02/25 21:00 05/05/25 08:37 Guaifenesin 12 Hr 600 Mg Tabcr PO 600 mg Q12HR HARRIETT Administration Hydroxychloroquine Sulfate 200 mg 05/03/25 09:00 05/05/25 08:37 Hydroxychloroquine Sulfate 200 Mg Tablet PO 200 mg BID HARRIETT Administration Azithromycin 500 mg in 250 mls @ 250 mls/hr 05/03/25 17:00 05/04/25 17:01 Zithromax IVPB Infused Q24H HARRIETT Infusion Ceftriaxone Sodium 1 gm in 50 mls @ 100 mls/hr 05/03/25 19:00 05/04/25 18:32 Rocephin 1 Gm/Ns 50 Ml IVPB Infused Q24H HARRIETT Infusion Pantoprazole Sodium 40 mg 05/03/25 09:00 05/05/25 08:37 Pantoprazole Sodium Iv 40 Mg Vial IV PUSH 40 mg Q12HR HARRIETT Administration Perflutren Lipid Microsphere 0 ml 05/03/25 16:15 Perflutren Lipid Microspheres 1.5 Ml Vial Diluted To 10 Ml Total Volume IV PUSH 05/06/25 16:15 ONCE PRN adequate visualization Protocol Polyethylene Glycol 17 gm 05/04/25 09:00 05/05/25 08:38 Polyethylene Glycol 3350 17 Gm Powd.Pack PO 17 gm QAM HARRIETT Administration Temazepam 15 mg 05/02/25 20:58 05/04/25 21:27 Temazepam (*Crx) 15 Mg Capsule PO 15 mg QHS PRN Administration sleep Radiology Results: ITS Impressions Chest/Abdomen/Pelvis CTA 05/02/25 12:46 IMPRESSION: 1. No pulmonary embolism. 2. Mosaic attenuation throughout both lungs with perihilar predominant patchy groundglass opacities which is new since the prior study and in the acute setting could represent pneumonia, mild pulmonary edema, atelectasis, hypersensitivity pneumonitis or eosinophilic pneumonia. 3. Prominent edematous wall thickening at the gastric antrum and pylorus with some surrounding from trace stranding most suspicious for peptic ulcer disease or focal gastritis. The stranding abuts the head of the otherwise normal- appearing pancreas and would correlate with lipase levels to exclude less likely acute interstitial pancreatitis. 4. Small sliding-type hiatal hernia with mild wall thickening in the distal esophagus which could be seen with reflux esophagitis. 5. Diverticulosis. Chest X-Ray 05/02/25 13:36 IMPRESSION: No acute process. Labs Labs: Laboratory Results - last 24 hr 05/05/25 06:25 WBC 7.0 RBC 3.56 L Hgb 10.0 L Hct 32.1 L MCV 90.2 MCH 28.1 MCHC 31.2 L RDW 13.2 Plt Count 262 MPV 10.1 Immature Gran % (Auto) 0.6 H Neut % (Auto) 61.3 Lymph % (Auto) 21.9 [place] % (Auto) 8.8 H Eos % (Auto) 6.5 H Baso % (Auto) 0.9 Lymph # (Auto) 1.54 [place] # (Auto) 0.6 Eos # (Auto) 0.5 H Baso # (Auto) 0.1 Abs Immat Gran (auto) 0.04 H Absolute Neuts (auto) 4.3 Absolute Nucleated RBC 0.000 Nucleated RBC % 0.0 Sodium 139 Potassium 3.9 Chloride 109 H Carbon Dioxide 24 Anion Gap 6 BUN 5 L Creatinine 1.00 Estim Creat Clear Calc 53 Estimated GFR 55 L Glucose 86 Calcium 8.8 Total Bilirubin 0.3 AST 34 ALT 20 Alkaline Phosphatase 56 Total Protein 6.5 Albumin 3.2 L
[2025-05-05 14:43] VITALS: BP 153/62; PULSE 61; RESP 18; TEMP 35.7; O2SAT 98
--- NOTE | 2025-05-05 15:03 | IVDEFINITY ---
Prior to administration of IV Definity the patient was educated on the risks and benefits of the imaging enhancing agent including potential adverse side effects. The patient verbalized understanding. Allergies were verified. No exclusion criteria were identified and at least one of the following inclusion criteria were met: 1) physician request, 2) patient technically difficult to image (per the [place] [employer]ocardi[employer] guidelines of two or more segments not discernable within the apical view), or 3) questionable left ventricular function. ?
[2025-05-05] MEDS: AZITHROMYCIN 500 MG/NS 250 ML 500 MG/250 ML BAG 250 MG IVPB (16:54)
[2025-05-05 20:00] VITALS: BP 148/70; PULSE 69; RESP 18; TEMP 36.8; O2SAT 93
[2025-05-05] MEDS: TEMAZEPAM (*CRX) 15 MG CAPSULE PO (20:33)
[2025-05-05 22:33] LABS: Legionella pneumophila Ag Ur. NOT DETECTED
[2025-05-06 05:20] VITALS: BP 104/54; PULSE 78; RESP 16; TEMP 37.1; O2SAT 93
[2025-05-06 06:20] LABS: Hematocrit 32.8 % (37.0-47.0); Hemoglobin 10.4 g/dL (12.0-15.0); Immature Granulocyte Percent A 0.3 % (0-0.5); Lymphocytes Absolute Auto 1.81 K/mm3 (0.9-3.2); Mean Corpuscular HGB Conc 31.7 g/dl (32-36); Mean Corpuscular Hemoglobin 28.6 pg (26-34); Mean Corpuscular Volume 90.1 fl (80-100); Nucleated Red Blood Cells Absolute Auto 0.000 K/mm3 (0.0-0.012); Nucleated Red Blood Cells Perc 0.0 % (0.0-0.2); Platelet Count Result 252 k/mm3 (150-375); Red Blood Count 3.64 M/mm3 (4.2-5.4); White Blood Count 6.2 K/mm3 (4.5-10.0)
[2025-05-06 06:29] LABS: Alanine Aminotransferase 22 U/L (6-35); Albumin Level 3.1 g/dL (3.5-5.1); Alkaline Phosphatase 57 U/L (38-126); Anion Gap 8 mmol/L (4-12); Aspartate Amino Transferase 37 U/L (14-36); Bilirubin,Total 0.3 mg/dL (0.2-1.3); Blood Urea Nitrogen 5 mg/dL (7-17); Calcium 8.6 mg/dL (8.4-10.2); Carbon Dioxide 26 mmol/L (22-30); Chloride 106 mmol/L (98-107); Estimated CRCL calculation 54 ml/min; Estimated Glomerular Filt Rate 56; Glucose 82 mg/dL (65-110); Potassium 3.7 mmol/L (3.4-5.0); Sodium 140 mmol/L (137-145); Total Protein 6.4 g/dL (6.3-8.2)
[2025-05-06 07:30] VITALS: O2SAT 93
[2025-05-06] MEDS: PANTOPRAZOLE SODIUM IV 40 MG VIAL IV PUSH (09:30)
[2025-05-06] MEDS: ENOXAPARIN 40 MG/0.4 ML SYRINGE SUB-Q (09:31)
[2025-05-06] MEDS: guaiFENesin 12 HR 600 MG TABCR PO (09:31)
[2025-05-06] MEDS: HYDROXYCHLOROQUINE SULFATE 200 MG TABLET PO (09:31)
--- NOTE | 2025-05-06 11:25 | P.DS_ITS ---
DS: Admitting Diagnosis Discharge Date 05/06/2025 Admitting Diagnosis Pneumonia DS: Discharge Diagnosis Discharge Diagnosis (1) Pneumonia: Code(s): J18.9 - Pneumonia, unspecified organism Status: Acute (2) Low oxygen saturation: Code(s): R79.81 - Abnormal blood-gas level Status: Acute (3) CKD (chronic kidney disease): Code(s): N18.9 - Chronic kidney disease, unspecified Status: Acute (4) Constipation: Code(s): K59.00 - Constipation, unspecified Status: Acute (5) Nausea & vomiting: Code(s): R11.2 - Nausea with vomiting, unspecified Status: Acute (6) Diverticulosis: Code(s): K57.90 - Diverticulosis of intestine, part unspecified, without perforation or abscess without bleeding Status: Acute DS: Summary Hospital Course Reason for hospitalization: nausea vomiting Hospital Course: 69-year-old female with a PMHx: of gastritis, GERD, CKD, rheumatoid arthritis. Ms. Garner reports that she began to experience nausea vomiting that started this past Monday citing her symptoms persisted with intermittently episodes occurring Monday, Monday and then again on Monday night , she also reported having symptoms of nausea vomiting on her flight back home. Patient reported her multiple episodes of vomit as dark brown, she did deny any fevers but recalled that she continued to feel chills. Patient states she was unable to keep food or water down she also stated that she has not had a bowel movement since Monday morning. She has been attempting to use stool softeners. although patient has been traveling domestic, she reports she was the only 1 in her group to experience the above symptoms, reducing the likelihood of food borne illness or water contamination. She denies any chest pain, abdominal pain at this time. ED Work-up reveals: BP 137/69, p: 87, respiratory patient is 20, O2 saturation 95% NC with 2 L,WBC 14.3, elevated D-dimer 2.61, serum creatinine 1.02 with GFR 54, BNP 240, urine positive for leukocytes, and urine wbc's 6-10, viral PCR negative, chest x-ray reveals no acute process. Chest abdomen pelvis CTA, no pulmonary embolism. Mosaic attenuation throughout both lungs patchy ground-glass opacities which was a new finding suggesting acute setting of PNA, mild pulmonary edema atelectasis, hypersensitivity pneumonitis, reflux esophagitis, diverticulosis. Patient admitted for PNA, gastritis Patient admitted for pneumonia, influenza/COVID/SARs be negative, started on ceftriaxone/IV azithromycin, antipyretics and guaifenesin. Was eventually switched to p.o. antibiotics on 05/06. Attempted weaning of O2 saturation over the weekend, was able to keep patient off of oxygen on 05/06. Found have diverticulosis on CT scan, was given PPI IV q.12 hours. Nausea vomiting also subsided over the next couple days and was able to tolerate a full solid diet. Physical exam is remained benign throughout visit, patient is afebrile with stable blood work. Patient hemodynamically stable for discharge as she has transition to p.o. antibiotics and does not require O2 supplementation. Plan for discharge home with 6 additional dose of cefdinir. Patient is amenable to this plan. Status at Discharge Functional status at discharge: independent ambulation Overall status at discharge: patient is back to baseline Time Spent with Patient Time attestation: Total time spent providing and/or coordinating discharge services: 41 Exam Narrative: GENERAL: Well-appearing, well-nourished, in no acute distress, NC with 2 L O2 HEAD: Normocephalic, atraumatic. NECK: Supple. No adenopathy, no masses. RESPIRATORY: Airway patent, respirations nonlabored. Clear to auscultation bilaterally, no rales, rhonchi, wheezing. CARDIOVASCULAR: Regular rate and rhythm without murmurs, rubs, or gallops. Peripheral pulses 2+ and equal bilaterally. ABDOMINAL: Soft, epigastric tenderness mild, nondistended, no hepatosplenomegaly. Normoactive BS. MUSCULOSKELETAL: Moves all extremities. Strength/ROM intact without gross deformities. SKIN: Warm, dry, normal color. No rashes. NEURO: A&O X3. Speech clear. Cranial nerves II-XII intact. No ataxic movements. PSYCHIATRIC: Appropriate mood and affect. Normal interaction. DS: Data Data Completed and Pending Labs on day of discharge: Labs from last 24 hours 05/06/25 05/03/25 05:44 04:57 WBC 6.2 RBC 3.64 L Hgb 10.4 L Hct 32.8 L MCV 90.1 MCH 28.6 MCHC 31.7 L RDW 13.0 Plt Count 252 MPV 10.5 H Immature Gran % (Auto) 0.3 Neut % (Auto) 52.1 Lymph % (Auto) 29.3 [place] % (Auto) 9.7 H Eos % (Auto) 7.6 H Baso % (Auto) 1.0 Lymph # (Auto) 1.81 [place] # (Auto) 0.6 Eos # (Auto) 0.5 H Baso # (Auto) 0.1 Abs Immat Gran (auto) 0.02 Absolute Neuts (auto) 3.2 Absolute Nucleated RBC 0.000 Nucleated RBC % 0.0 Sodium 140 Potassium 3.7 Chloride 106 Carbon Dioxide 26 Anion Gap 8 BUN 5 L Creatinine 0.98 Estim Creat Clear Calc 54 Estimated GFR 56 L Glucose 82 Calcium 8.6 Total Bilirubin 0.3 AST 37 H ALT 22 Alkaline Phosphatase 57 Total Protein 6.4 Albumin 3.1 L Ur L.pneumophila Ag Not detected Preliminary micro results at discharge 05/02/25 16:30 Blood Culture - Preliminary Blood 05/02/25 16:29 Blood Culture - Preliminary Blood Discharge Plan Discharge Attending physician on discharge: Jonna Burrell Consulting providers: Ej Dennis Discharging Clinician: Ej Dennis Anticipated Discharge Date/Time: 05/06/25 11:23 Patient Disposition: Home Activity: as tolerated Diet: as tolerated Discharge Instructions: Discharge disposition: Stable Take medications as prescribed. You will be prescribed Cefdinir to be take for an additional 6 doses. Monitor blood pressures Take caution while standing, rising, or moving Change positions slowly taking a break between each position change If you standing feel dizzy sit back down and take a break Encouraged to continue with yearly vaccinations Return to the emergency department if he developed sudden shortness of breath, chest pain, nausea, vomiting, upset stomach or intractable diarrhea Return to the emergency department if you develop fever greater than 101.5 Follow-up with the primary care physician within 1-2 weeks Thank you for [facility] for your healthcare needs Patient Instructions: Antibiotic Form Patient Language: [place]i Stand Alone Forms: General Discharge Information Follow-up/Referrals: Sergio Caballero MD [Primary Care Provider] - Discharge Medications: New cefdinir 300 mg capsule 300 mg PO Q12H Qty: 6 0RF Continued hydroxychloroquine [Plaquenil] 200 mg tablet 200 mg PO BID Humira Pen 40 mg/0.8 mL pen injector kit 40 mg subcut ONCE Patient Comments: [id number] on Sat amlodipine 5 mg tablet 5 mg PO DAILY aspirin 81 mg tablet,delayed release (DR/EC) 81 mg PO DAILY Qty: 1 0RF Rx Instructions: OTC (DME) FreeStyle Meg 3 [place] Misc See Rx Instructions .Route Qty: 1 0RF Rx Instructions: As directed (DME) FreeStyle Meg 3 Sensor Device See Rx Instructions .Route Qty: 1 0RF Rx Instructions: As directed temazepam 15 mg capsule 15 mg PO QHS PRN (Reason: sleep) Qty: 30 1RF Date of admission: 05/03/25 16:13 Primary Care Provider: Sergio Caballero Admitting Provider: Juanjose Wetzel Attending physician on admission: Juanjose Wetzel Condition: Stable Quality VTE Prophylaxis VTE prophylaxis: mechanical ordered and pharmacologic ordered
[2025-05-06] MEDS: AZITHROMYCIN 250 MG TABLET 500 MG PO (11:46)
[2025-05-06] MEDS: CEFDINIR 300 MG CAPSULE PO (11:46)
== END 2025-05-06 13:44 | disposition home or self-care (01) | DRG 195 ==
LOC: ANHED 16:09 → ANH3MEDSUR 18:06
PROVIDERS: Emergency Medicine; Nurse Practitioner; Admitting Provider Internal Medicine; Emergency Provider Registered Nurse; PCP Family Medicine; Visit Provider Physician Assistant
DX: J18.9 Pneumonia, unspecified organism (principal); K29.70 Gastritis, unspecified, without bleeding; N18.9 Chronic kidney disease, unspecified; K59.00 Constipation, unspecified; K57.90 Diverticulosis of intestine, part unspecified, without perforation or abscess without bleeding; K21.9 Gastro-esophageal reflux disease without esophagitis; M06.9 Rheumatoid arthritis, unspecified; Z20.822 Contact with and (suspected) exposure to COVID-19; Z87.891 Personal history of nicotine dependence
CPT/HCPCS: 36415; 71046; 71275; 74177; 80053; 81001; 83605; 83690; 83880; 84484; 85025; 85380; 85610; 85730; 86140; 87040; 87070; 87086; 87205; 87449; 87637; 87651; 87899; 93005; 96361; 96365; 96367; 96372; 96375; 96376; 99285; A9270; C8929; G0378; J0456; J0696; J1650; J2405; J2470; J7030; Q9957; Q9967

== ENCOUNTER 2025-05-17 12:25 | Outpatient (CLI) | payer MEDICARE, SELFPAY ==
--- NOTE | ~2025-05-17 | CT_ITS ---
Clinical Indication: Pneumonia CT Scan of the Chest and Abdomen without Contrast: Technique: Contiguous sections were acquired throughout the chest and abdomen, without IV contrast in itiation. Dose reduction technique was used on this scan by utilizing automated exposure control and iterative reconstruction technique. The dose-length product (DLP) was 888.06 mGy-cm. Comparison: 05/02/2025 Findings: There is no evidence of any significant mediastinal, hilar or axillary lymphadenopathy. The mediastin al soft tissues appear normal. There is no evidence of pleural or pericardial effusion. There is minimal biapical scarring. There are a few residual tiny subcentimeter peripheral nodules in the right upper lobe. There is focal chronic scarring at the right lung base. The liver, spleen, pancreas, adrenals and kidneys are within normal limits. Cholecystectomy clips are present. No evidence of aortic aneurysm. No lymphadenopathy. Visualized bowel loops are unremarkable. No ascites. Small fat-containing umbilical hernia noted. Impression: Probable postinflammatory changes as noted above, with a few residual tiny subcentimeter peripheral n odules in the right upper lobe and focal chronic scarring at the right lung base. Otherwise, the grou ndglass opacities seen extensively in the lungs on prior exam are resolved. Reviewed, dictated and finalized at location . Impression: Probable postinflammatory changes as noted above, with a few residual tiny subc entimeter peripheral nodules in the right upper lobe and focal chronic scarring at the right lung base. Otherwise, the groundglass opacities seen extensively in the lungs on prior exam are resolved.
--- OUTSIDE RECORDS SUMMARY | 2025-05-17 12:29 | XMS_ITS | Referral Summary ---
Author Organization [facility] Address [address] [address] Care Team Providers Care Jewelry Bench Molder Name Role Phone Sergio Caballero MD Primary Care Provider + [phone] Birgit Healy MD Unavailable Encounters Date Type Department Care Team Description 05/15/2025 Telephone [facility] Cardiology [address] [place] [address] Komal Roa MD Lab Results from Last 3 Months Allergies Active Allergy Reactions Criticality Noted Date Comments Clindamycin Itching,Unknown Low 02/09/2012 Meloxicam Unknown,Itching Low 05/30/2011 Quinolones Unknown Sulfa (Sulfonamide Antibiotics) Unknown,Itching,Hives Medi um 10/04/2011 Trimethoprim Rash Medium 10/04/2011 Medications hydroxychloroqu ine (PLAQUENIL) 200 mg tablet Take 1 tablet (200 mg total) by mouth 2 (two) times a day 0 04/05/2019 Active folic acid (FOLVITE) 1 mg tablet 1 03/11/2019 Active temazepam (RESTORIL) 7.5 mg capsule Take by mouth nightly as needed 2 03/26/2019 Active methotrexate 2.5 mg tablet Take 8 tablets (20 mg total) by mouth every 7 days Active aspirin 81 mg enteric coated tablet Take 1 tablet (81 mg total) by mouth daily Active adalimumab (APRYL, CF, SYRINGE) 40 mg/0.4 mL syringe kit Inject 0.4 mL (40 mg total) under the skin every 14 (fourteen) days Active amLODIPine (NORVASC) 5 mg tablet Take 1 tablet (5 mg total) by mouth daily 30 tablet 11 08/14/2024 Active Active Problems Problem Noted Date Diagnosed Date Blood pressure elevated without history of HTN 0 08/05/2024 Syncope and collapse 01/29/2024 Inguinal lymphadenopathy 12/28/2017 Pain in female pelvis 12/05/2017 Secondary lymphedema 09/21/2017 Vulvitis 09/06/2017 Stenosis of intervertebral foramina 08/31/2017 Other chronic pain 08/29/2017 Lymphedema of right lower extremity 08/17/2017 Pain of lower extremity 03/20/2017 Inflammation of sacroiliac joint 03/20/2017 Cervical myelopathy 03/09/2017 Lumbar radiculopathy 03/09/2017 Status post cervical spinal fusion 03/09/2017 Menopause present 10/16/2014 Spinal stenosis of lumbar region 03/21/2013 Cervical (neck) region somatic dysfunction 02/12 Herniation of intervertebral disc of cervical re gion 02/07/2013 Surgical follow-up care 11/18/2012 Knee pain 10/02/2012 Tendon rupture of wrist 05/10/2012 Finger injury, left, initial encounter 2 Arthralgia of wrist 05/08/2012 Anemia 02/09/2012 Muscle pain 01/09/2012 Disorder of lung 10/19/2011 Monoclonal gammopathy of unknown significance (M THERESA) 08/25/2011 Polymyalgia rheumatica 05/30/2011 Encounter for long-term (cur rent) use of high-risk medication 04/29/2011 Fibromyalgia 03/05/2011 Social History Tobacco Use Types Packs/Day Years Used Date Smoking Tobacco: Former Smokeless Tobacco: Never Tobacco Cessation:Counseling Given: No Alcohol Use Standard Drinks/Week Comments No 0 (1 standard drink = 0.6 oz pur e alcohol) Comments Unknown Sex and Gender Information Value Date Recorded Sex Assigned at Not on file Legal Sex Female 1:12 AM 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 ENGINEER Gender Identity Not on file Sexual Orientation Not on file Last Filed Vital Signs Vital Sign Reading Time Taken Comments Blood Pressure 164/86 08/08/2024 1:03 PM CDT Pulse 68 08/08/2024 1:03 PM CDT Temperature 36.9 C (98.4 F) 04/11/2019 11:58 AM CDT Respiratory Rate 12 04/11/2019 2:10 PM CDT Oxygen Saturation 96% 08/08/2024 1:03 PM CDT Inhaled Oxygen Concentration - - Weight 86.4 kg (190 lb 6.4 oz) 08/05/2024 1:06 P M CDT Height 161.3 cm (5' 3.5) 08/05/2024 1:06 PM CDT Body Mass Index 33.2 08/05/2024 1:06 PM CDT Plan of Treatment Not on file Insurance [email or web address] [facility] MEDICARE ADVANTAGE Care Teams Jewelry Bench Molder Relationship Specialty Start Date End Date Sergio Caballero MD PCP - General 03/14/16 [place] [id number] [address] Consulting Physician Rheumatology 07/25/18
--- OUTSIDE RECORDS SUMMARY | 2025-05-17 12:29 | XMS_ITS | Encounter Summary ---
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 OF THE 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 Gender Identity Not on file Sexual Orientation Not on file documented as of this encounter Plan of Treatment Upcoming Encounters Date Type Department Care Team (Late st Contact Info) Description 09/24/2025 10:15 AM EXECUTIVE CHAIRMAN OF THE BOARD Office Visit [facility] - Ophthalmology [address] [place] [phone] Sarah Maria MD [address] [place] [address] [place] [phone] documented as of this encounter Procedures Procedure Name Priority Date/Time Associated Diagnosis Comments SARS-COV-2 (COVID-19) IN HOUSE Routine 03/23/2020 11:51 AM CDT documented in this encounter Results * SARS-COV-2 (COVID-19) IN HOUSE (03/23/2020 11:51 AM CDT) COVID-19 PCR Not detected Not detected, Invalid 03/24/2020 6:33 AM CDT [facility] Microbiology SPECIMEN FROM NASOPHARYNGEAL STRUCTURE / Unknown Collection / Unknown 03/23/2020 11:51 AM CDT 03/23/2020 5:05 PM CDT Narrative [facility] - 03/24/2020 6:33 AM CDT This Real Time RT-PCR assay was developed and its performance characteristics determined by [facility][1] Microbiology Laboratory. This test has been authorized by the Food and Drug administration (FDA)under an Emergency Use Authorization (EUA). This test has been validated in accordance with the FDA's guidance document Policy for Diagnostic Testing in Laboratories Certified to perform High Complexity Testing under CLIA prior to Emergency Use Authorization for Coronavirus Disease-2019 during the Public Health Emergency issued on January 04, 2020. FDA independent review of this validation is pending. This test is only authorized for the duration of time the declaration that circumstances exist justifying the authorization of emergency use of in vitro diagnostic tests for detection of SARS-CoV-2 virus and/or diagnosis of COVID-19 infection under section 564(b)(1) of the Act, 21 U.S.C 360bbb-3 (b)(1), unless the authorization is terminated or revoked sooner. us LAB - MICROBIOLOGY ORDERABLES Fi nal Result [facility] [address] [place], [place] [address], [facility] [phone] documented in this encounter Visit Diagnoses Not on filedocumented in this encounter Care Teams Cable Former Relationship Specialty Start Date End Date Sheron Camargo MD PCP - General Internal Medicine 01/26/21 documented as of this encounter
--- OUTSIDE RECORDS SUMMARY | 2025-05-17 12:29 | XMS_ITS | Clinical Summary ---
Author Organization [facility] Address [address] [place] [address] Phone Care Team Providers Care Certified Scrum Master Name Role Phone Priti Mills PAC Primary Care Provider Gabriel Santos MD Unavailable [phone] Allergies Active Allergy Reactions Criticality Noted Date Comments Clindamycin Itching 11/04/2021 Meloxicam Itching 11/04/2021 Quinolones Unknown 11/04/2021 Sulfa Antibiotics Unknown 11/04/2021 Medications temazepam (RESTORIL) 15 MG Capsule Take 15 mg by mouth nightly as needed. Active hydroxychloroqu ine (PLAQUENIL) 200 MG Tablet Take 200 mg by mouth 2 times daily. Active folic acid (FOLVITE) 1 MG Tablet Take 1 mg by mouth daily. Active methotrexate 2.5 MG Tablet Take 2.5 mg by mouth every 7 days Active aspirin 81 MG Chewable Tablet Take 81 mg by mouth daily. Active clobetasol (TEMOVATE) 0.05 % Cream Apply. 0 Active famotidine (PEPCID) 40 MG Tablet 2 Active Adalimumab 40 MG/0.4ML Prefilled Syringe Kit 40 mg by Subcutaneous route. Active triazolam (HALCION) 0.25 MG Tablet 0 4 Active Active Problems Problem Noted Date Diagnosed Date Elevated ferritin 10/14/2022 Weakness 10/14/2022 Osteoarthrosis 07/14/2022 Vitamin D deficiency 11/25/2021 Anemia of unknown etiology 11/04/2021 Thrombocytosis 11/04/2021 Bleeding in brain due to brain aneurysm 02/09/20 Subarachnoid hemorrhage 01/26/2021 Freiberg's infraction 12/04/2017 Stenosis of intervertebral foramina 08/31/2017 Cervical myelopathy 03/09/2017 Status post cervical spinal fusion 03/09/2017 Spinal stenosis of lumbar region 03/21/2013 Monoclonal gammopathy of unknown significance (M THERESA) 08/25/2011 Polymyalgia rheumatica 05/30/2011 Fibromyalgia 03/05/2011 Immunizations Immunization Administration Dates Next Due Pneumococcal conjugate PCV20 , polysaccharide [id number] conjugate, adjuvant, PF 12/14/2023 Family History Medical History Relation Name Comments Cancer Brother Ag No Known Problems Child 1 rivera No Known Problems Child 2 maciej No Known Problems Child 3 abdulaziz Cancer Father Stroke Mother Alzheimer's Disease Sister 1 Yolis Relation Name Status Comments Brother Ag Child 1 rivera Alive Child 2 maciej Alive Child 3 abdulaziz Alive Father Mother Sister 1 Yolis Sister 2 Mabel Social History Tobacco Use Types Packs/Day Years Used Date Smoking Tobacco: Former Cigarettes Smokeless Tobacco: Never Tobacco Cessation:Counseling Given: Not Answered PHQ-2 Answer Date Recorded Total Score - Questions 1-9 0 07/2022 Comments Unknown Sex and Gender Information Value Date Recorded Sex Assigned at Not on file Legal Sex Female 2:13 PM 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 Gender Identity Not on file Sexual Orientation Not on file Last Filed Vital Signs Vital Sign Reading Time Taken Comments Blood Pressure 134/82 07/12/2024 8:58 AM CDT Pulse 60 07/12/2024 8:58 AM CDT Temperature 36.5 C (97.7 F) 07/12/2024 8:58 AM CDT Respiratory Rate 18 07/12/2024 8:58 AM CDT Oxygen Saturation 94% 07/12/2024 8:58 AM CDT Inhaled Oxygen Concentration - - Weight 85.2 kg (187 lb 14.4 oz) 07/12/2024 8:58 AM CDT Height 161.3 cm (5' 3.5) 07/12/2024 8:58 AM CDT Body Mass Index 32.76 07/12/2024 8:58 AM CDT Plan of Treatment Upcoming Encounters Date Type Department Care Team (Late st Contact Info) Description 07/11/2025 8:45 AM CDT Lab [facility] [address] [address] Lab, [facility] 07/11/2025 9:00 AM CDT Office Visit [facility] [address] [phone] Gabriel Santos MD [address] [place], [place] [address] Health Maintenance Due Date Last Done Comments TdaP Immunization 1956 Zoster Immunization (1 of 2) 1975 Cologuard 2001 Colonoscopy 2001 Respiratory Syncytial Virus (RSV) Immunization (Adult) (1 - Risk 60-74 years 1-dose series) 2016 Colorectal Cancer Screening 05/21/2020 Immunochemical Fecal Occult Blood 05/21/2020 05/21/2019 SARS-COV-2 Immunization (3 - Pfizer risk series) 07/14/2021 06/16/2021, 05/26/2021 DEXA Bone Density 12/13/2024 12/13/2022, 05/03/2019 Mammogram 03/08/2025 03/08/2024, 050 01/2024, 12/13/2022, Additional history exists Influenza Immunization (#1) 2025 Hepatitis C Virus (HCV) Screening Completed 11/11/2021 Pneumococcal Immunization (50+ years) Completed 12/14/2023 Pneumococcal Immunization Combined Discontinued 12/14/2023 Hepatitis B Immunization Aged Out No longer eligible based on patient's age to complete this topic Human Papillomavirus (HPV) Immunization Aged Out No longer eligible based on patient's age to complete this topic Meningococcal Immunization (ACWY) Aged Out No longer eligible based on patient's age to complete this topic Rotavirus Immunization Aged Out No lo nger eligible based on patient's age to complete this topic Insurance MEDICARE [facility] Care Teams Certified Scrum Master Relationship Specialty Start Date End Date Priti Mills, PAC [address] [place] [address] PCP - General Physician Financial Sales Associate 10/12/21 Gabriel Santos MD [address] [address] Consulting Physician Oncology 10/12/21
--- OUTSIDE RECORDS SUMMARY | 2025-05-17 12:29 | XMS_ITS | Clinical Summary ---
Author Organization [facility] Address [address] [place] [address] Care Team Providers Care Sterile Processing Technologist Name Role Phone Sheron Camargo MD Primary Care Provider Source Comments [facility],non-owned Affiliates and Associated Physician Practices is amultiple site organization consisting of ambulatory clinics and hospital sitesin [place], [place], [place] and [place]. This disclosure is being madepursuant to the Care Everywhere program and may not contain all information available regarding this patient. Last updated 18.[facility] [employer] ([employer]) Allergies Active Allergy Reactions Criticality Noted Date Comments Clindamycin Itching,Unknown 08/17/2017 Meloxicam Itching 01/26/2021 Hydroxyquinolines Unknown 01/26/2021 Sulfa Drugs Unknown,Urticaria,Itching Medium 1 Medications * Be aware that medications may not be up to date on this document. Alwaysverify current medications with the patient. albuterol (PROVENTIL;ANNA TOLIN) (2.5 MG/3ML) 0.083% nebulizer solution USE 1 VIAL IN NEBULIZER THREE TIMES DAILY 0 Active cetirizine (ZYRTEC) 10 MG chew tablet Take 10 mg by mouth every 24 hours as needed Active clobetasol (TEMOVATE) 0.05 % cream SWATI EXT AA BID 0 Active hydroxychloroq uine (PLAQUENIL) 200 MG tablet Take 200 mg by mouth 2 times daily 1 Active temazepam (RESTORIL) 15 MG capsule Take 15 mg by mouth nightly as needed 1 Active aspirin (Aspirin) 81 MG chew tabletIndicati ons:Cerebral aneurysm (HCC) CHEW AND SWALLOW 1 TABLET BY MOUTH EVERY DAY 100 tablet 4 4 Active adalimumab (Humira) 40 MG/0.4ML injection Inject 0.4 mL subcutaneously Active amLODIPine (Norvasc) 5 MG tablet Take 1 (one) tablet by mouth once daily Active Active Problems Problem Noted Date Diagnosed Date Brow ptosis, bilateral 03/22/2025 Mechanical ptosis of bilateral eyelids 5 Subarachnoid hemorrhage 01/26/2021 SAH (subarachnoid hemorrhage) 01/26/2021 Encounters Date Type Department Care Team Description 03/20/2025 1:20 PM CDT Clinical Support [facility] - Ophthalmology [address] [place] [phone] Sarah Maria MD Ptosis of both eyelids (Primary Dx) 03/20/2025 1:15 PM CDT Office Visit [facility] - Ophthalmology [address] [place] [phone] Sarah Maria MD Brow ptosis, bilateral (Primary Dx); Mechanical ptosis of bilateral eyelids 03/20/2025 Travel from Last 3 Months Family History Medical History Relation Name Comments Cancer Brother Cancer - Lung Father Alzheimer's Disease Mother Relation Name Status Comments Brother Father Mother Social History Tobacco Use Types Packs/Day Years Used Date Smoking Tobacco: Never Cigarettes Pipe Cigars Smokeless Tobacco: Never Snuff, Chew Tobacco Cessation:Counseling Given: No Alcohol Use Standard Drinks/Week Comments Never 0 (1 standard drink = 0.6 oz pur e alcohol) AUDIT-C Answer Date Recorded Q1: How often do you have a drink containing alc ohol? Monthly or less 01/28/2022 Average Number of Drinks Not on file 022 Frequency of Binge Drinking Not on file 01/05 Overall Financial Resource Strain (CARDIA) Answe r Date Recorded How hard is it for you to pa y for the very basics like food, housing, medical care, and heating? Not hard at all 01/26/2021 PHQ-2 Answer Date Recorded Patient Health Questionnaire-2 Score 0 03/20/2025 Hunger Vital Sign Answer Date Recorded Within the past 12 months, y ou worried that your food would run out before you got the money to buy more. Never true 01/27/20 21 Within the past 12 months, t he food you bought just didn't last and you didn't have money to get more. Never true 01/26/2021 PRAPARE - Transportation Answer Date Re corded In the past 12 months, has l ack of transportation kept you from medical appointments or from getting medications? No 01/05 In the past 12 months, has l ack of transportation kept you from meetings, work, or from getting things needed for daily living? No 01/26/2021 Comments Unknown Sex and Gender Information Value Date Recorded Sex Assigned at Not on file Legal Sex Female 5:56 PM LINE STAKER Gender Identity Not on file Sexual Orientation Not on file Last Filed Vital Signs Vital Sign Reading Time Taken Comments Blood Pressure 172/89 01/28/2022 3:15 PM CDT Pulse 67 01/28/2022 3:15 PM CDT Temperature 36.3 C (97.4 F) 01/28/2022 2:22 PM CDT Respiratory Rate 10 01/28/2022 3:15 PM CDT Oxygen Saturation 93% 01/28/2022 3:15 PM CDT Inhaled Oxygen Concentration - - Weight 72.6 kg (160 lb) 01/28/2022 10:31 AM CDT Height 160 cm (5' 3) 01/28/2022 10:31 AM CDT Body Mass Index 28.34 01/28/2022 10:31 AM CDT Plan of Treatment Upcoming Encounters Date Type Department Care Team (Late st Contact Info) Description 09/24/2025 10:15 AM LINE STAKER Office Visit [facility] - Ophthalmology [address] [place] [phone] Sarah Maria MD [address] [place] [address] [place] [address] Health Maintenance Due Date Last Done Comments COLOGUARD (AGES 45-75) - COLON CA SCREENING 1956 COLON MONITORING 1956 COLONOSCOPY - COLON CA SCREENING 1956 CT COLONOGRAPHY - COLON CA SCREENING 1955 Colorectal Cancer Screening 1956 FIT - COLON CA SCREENING 1956 FLEX SIG - COLON CA SCREENING 1956 LIPID TESTING 1956 DTAP/TDAP/TD VACCINES (1 - Tdap) 1975 PNEUMOCOCCAL VACCINE 50+ (1 of 1 - PCV) 2006 ZOSTER VACCINE (1 of 2) 2006 COVID-19 VACCINE (3 - season) 2024 06/16/2021, 05/26/2021 MEDICARE AWV CALENDAR YEAR 2024 INFLUENZA VACCINE (#1) 2025 MAMMOGRAM 03/10/2027 03/10/2025, 03/2025, 03/08/2024, Additional history exists Respiratory Syncytial Virus (RSV) Vaccine Pt: or over 60 yrs (1 - 1-dose 75+ series) 2031 HEPATITIS C SCREENING Completed 11/11/2021, 021 BONE DENSITY TESTING Completed 12/13/2022, 05/03/20 19 DEPRESSION SCREENING Completed 03/20/2025 HEPATITIS B VACCINE Aged Out No longe r eligible based on patient's age to complete this topic HIB VACCINE Aged Out No longer eligi ble based on patient's age to complete this topic HPV VACCINE Aged Out No longer eligi ble based on patient's age to complete this topic MENINGOCOCCAL (Group B) VACCINE SHARED DECISION-MAKING Aged Out No longer eligible based on patient's age to complete this topic MENINGOCOCCAL GROUPS A/C/Y/W VACCINE Aged Out No longer eligible based on patient's age to complete this topic Medical Devices Implanted Type Area Numerical Control Lathe Operator Device Identifier Shelf Expiration Date Model / Serial / Lot Pipeline Implanted:Qty: 1 on 01/29/[address] [facility] Right: Carotid 11/20/2023 [id number] / / [id number] Description:DR ortez Procedures Procedure Name Priority Date/Time Associated Diagnosis Comments LEPE AUTO VISUAL FIELD EXTENDED Routine 03/20/2025 1:15 PM CDT Ptosis of both eyelids HEPATITIS C AB SCREEN RFLX NAAT QUANT STAT 01/26/2021 12:18 PM CDT from Last 3 Months or Most Recently Relevant to Health Maintenance Results * LEPE AUTO VISUAL FIELD EXTENDED (03/20/2025 1:15 PM CDT) Anatomical Region Laterality Modality Head External-Camera Photography Narrative 03/22/2025 9:43 AM CDT Images from the original result were not included. Reversible superior visual field deficit Right: 24 degrees to 26 degrees Left: 25 degrees to 26 degrees us Sarah Maria MD OPHTHALMOLOGY SCHED ORD W PACS Final Result * HEPATITIS C AB SCREEN RFLX NAAT QUANT (01/26/2021 12:18 PM CDT) Hepatitis C Antibody Non-react idania Non-reac tive 01/26/2021 1:31 PM CDT [facility] Comment:Hepatitis C Antibody screen indicates no serologic evidence of past or current infection with Hepatitis C Virus. Patients with unexplained liver disease who are immunocompromised or suspected of having acute Hepatitis C infection may benefit from Nucleic Acid Test (LAI) for Hepatitis C Viral RNA to confirm Hepatitis C status. Blood BLOOD SPECIMEN / Unknown Venipuncture / Unknown 01/26/2021 12:18 PM CDT 01/26/2021 12:47 PM CDT us Alexus Zaidi MD LAB - CHEMISTRY ORDERABLES Fin al Result [facility] [address] [place] [address], [facility] [place] [phone] from Last 3 Months or Most Recently Relevant to Health Maintenance Insurance MEDICARE MEDICARE [facility] MANAGED MEDICARE ADV [facility] MANAGED MEDICARE ADV Advance Directives * Full Code (Latest Code Status on File) Date Activated Date Inactivated Comments 01/26/2021 11:37 AM 02/03/2021 5:49 PM Care Teams Sterile Processing Technologist Relationship Specialty Start Date End Date Sheron Camargo MD PCP - General Internal Medicine 01/26/21
--- OUTSIDE RECORDS SUMMARY | 2025-05-17 12:29 | XMS_ITS | Encounter Summary ---
Author Organization [facility] Address [address] [place] [address] Phone Care Team Providers Care Consumer Affairs Manager Name Role Phone Geoffbebamason Priti D PAC Primary Care Provider [phone] Gabriel Santos MD Unavailable Encounter Details Date Type Department Care Team (Late st Contact Info) Description 04/13/2022 Telephone [facility] [address] [place] [address] Gabriel Santos MD [address] [address] Social History Tobacco Use Types Packs/Day Years Used Date Smoking Tobacco: Former Cigarettes PHQ-2 Answer Date Recorded Total Score - Questions 1-9 0 01/04 Comments Unknown Sex and Gender Information Value Date Recorded Sex Assigned at Not on file Legal Sex Female 2: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 No / Unsure 04/14/2022 11:02 AM CDT documented as of this encounter Miscellaneous Notes * Telephone Encounter - Estrellita Armijo - 04/13/2022 2:23 PM CDT PT ASKED TO CHANGE APPT TO TELE VISIT. DUE TO SHE IS NOT FEELING WELL. I EXPLAIN THAT DR. SANTOS WOULD CALL HER AROUND LUNCH TIME, OR AFTER CLINIC documented in this encounter Plan of Treatment Upcoming Encounters Date Type Department Care Team (Late st Contact Info) Description 07/11/2025 8:45 AM CDT Lab [facility] [address] [phone] Lab, [facility] 07/11/2025 9:00 AM CDT Office Visit [facility] [address] [phone] Gabriel Santos MD [address] [place], [place] [phone] documented as of this encounter Visit Diagnoses Not on filedocumented in this encounter Care Teams Consumer Affairs Manager Relationship Specialty Start Date End Date Priti Mills, [facility] [address] [place] [address] PCP - General Physician Cell Geneticist 10/12/21 Gabriel Santos MD [address] [place], [place] [address] Consulting Physician Oncology 10/12/21 documented as of this encounter
--- OUTSIDE RECORDS SUMMARY | 2025-05-17 12:29 | XMS_ITS | Clinical Summary ---
Author Organization [facility] Address [address] [address] Care Team Providers Care Supervisor Drying And Softening Name Role Phone Sergio Caballero MD Primary Care Provider + [phone] Birgit Healy MD Unavailable Allergies Active Allergy Reactions Criticality Noted Date [...] mg total) by mouth daily Active adalimumab (HUMIRA, CF, SYRINGE) 40 mg/0.4 mL syringe kit Inject 0.4 mL (40 mg total) under the skin every 14 (fourteen) days Active amLODIPine (NORVASC) 5 mg tablet Take 1 tablet (5 mg total) by mouth daily 30 tablet 11 08/14/2024 5 Active Active Problems Problem Noted Date Diagnosed [...] use of high-risk medication 04/29/2011 Fibromyalgia 03/05/2011 Encounters Date Type Department Care Team Description 05/15/2025 Telephone [facility] Cardiology [address] [place] [address] Komal Roa MD Lab Results from Last 3 Months Surgical History Surgery Date Site/Laterality Comments EPIDURAL INJECTION LUMBOSACRAL 01/24/2013 N/A MA CHOLECYSTECTOMY Cholecystectomy - (Added by TW Conv) NECK SURGERY Neck Surgery - anterior cervical discectomy (Added by TW Conv) SINUS SURGERY Sinus Surgery - (Added by TW Conv) MA TOTAL ABDOMINAL HYSTERECT W/WO RMVL TUBE OVARY Hysterectomy - (Added by TW Conv) MA ARTHRP KNE CONDYLE&PLATU MEDIAL&LAT COMPARTMENTS Total Knee Replacement Right - (Added by TW Conv) KNEE SURGERY Knee Surgery Left - (Added by TW Conv) FL FLUORO GUIDED LUMBAR PUNCTURE 05/28/2018 Right FL UPPER GI AIR CONTRAST W KUB 05/28/2018 Left FL FLUORO GUIDED LUMBAR PUNCTURE 10/22/2018 Right Medical History Medical History Date Comments Personal history of other di seases of the nervous system and sense organs History of tinnitus - (Added by TW Conv) Effusion of ankle Ankle swelling - (Added by TW Conv) Personal history of other di seases of the musculoskeletal system and connective tissue History o f low back pain - (Added by TW Conv) Chronic pain Hypertension Family History Medical History Relation Name Comments Alcohol abuse Father Family history of alcoholism - (Added by TW Conv) Cancer Father Family history of malignant neoplasm - (Added by TW Conv) Lung cancer Father Family history of lung cancer - (Added by TW Conv) Hypertension Mother Family history of hypertension - (Added by TW Conv) Relation Name Status Comments Father Mother Social History Tobacco Use Types Packs/Day Years Used Date Smoking Tobacco: Former Smokeless Tobacco: Never Tobacco Cessation:Counseling Given: No Alcohol Use Standard Drinks/Week Comments No 0 (1 standard drink = 0.6 oz pur e alcohol) Comments Unknown Sex and Gender Information Value Date Recorded Sex Assigned at Not on file Legal Sex Female 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 Gender Identity Not on file Sexual Orientation Not on file Obstetrics History Last Filed Vital Signs Vital Sign Reading [...] 08/05/2024 1:06 PM CDT Plan of Treatment Health Maintenance Due Date Last Done Comments Colon Cancer Screening-Colonoscopy 1955 Depression Screening 1955 Hepatitis C Screening 1955 DTaP/Tdap/Td Vaccine (1 - Tdap) 1967 Hepatitis B Screening 1974 Zoster Vaccine (1 of 2) 1975 Fall Risk Assessment 08/06/2019 08/06/2018 Covid-19 Vaccine (3 - Pfizer risk series) 07/14/2021 06/16/2021, 05/26/2021 Well Visit 65+ 2021 Osteoporosis Screening-Bone Density Scan 12/13/2024 12/13/2022 Breast Cancer Screening-Mammogram 03/08/2025 03/08/2024, 03/08/2024, 12/13/2022, Additional history exists Influenza Vaccine (#1) 2025 Pneumococcal vaccine 65+ Completed 12/14/2023 Insurance [employer] CHOICE [facility] MED[facility] Address: [address] [address] Care Teams Supervisor Drying And Softening Relationship Specialty Start Date End Date Sergio Caballero MD PCP - General 03/14/16 [place] [id number] [facility] [address] [place] [address] Consulting Physician Rheumatology 07/25/18
== END 2025-05-17 12:26 | disposition home or self-care (01) ==
PROVIDERS: PCP Family Medicine
DX: J18.9 Pneumonia, unspecified organism (principal); K27.9 Peptic ulcer, site unspecified, unspecified as acute or chronic, without hemorrhage or perforation
CPT/HCPCS: 71250; 74150

== ENCOUNTER 2025-09-22 11:55 | Outpatient (CLI) | payer MEDICARE, SELFPAY ==
--- NOTE | ~2025-09-22 | XR_ITS ---
EXAMINATION: XR chest 2V, 09/22/2025 12:07 REFRIGERATION TECH HISTORY: rule out exam COMPARISON: No comparisons available. Technique: 2 views obtained. Findings: The lungs are clear, no effusion. No pneumothorax. Heart is normal size. Mediastinal and hilar contours are within normal limits. Bony thorax no acute abnormality. Impression: No acute cardiopulmonary abnormality. Reviewed, dictated and finalized at location P. IGERATION TECH Impression: No acute cardiopulmonary abnormality.
== END 2025-09-22 11:56 | disposition home or self-care (01) ==
PROVIDERS: PCP Family Medicine
DX: R05.9 Cough, unspecified (principal)
CPT/HCPCS: 71046

== ENCOUNTER 2025-09-23 08:03 | Outpatient (CLI) | payer MEDICARE, SELFPAY | END 2025-09-23 08:04 | disposition home or self-care (01) | PROVIDERS: PCP Family Medicine | DX: J40 Bronchitis, not specified as acute or chronic (principal) | CPT/HCPCS: 87070; 87205 ==

== ENCOUNTER 2025-10-29 00:18 | Day surgery (SDC) | payer MEDICARE, SELFPAY ==
[2025-10-08 14:05] VITALS: BMI 35.5
[2025-10-29 11:07] VITALS: BP 135/55; PULSE 81; RESP 16; TEMP 36.2; O2SAT 97
[2025-10-29] MEDS: LACTATED RINGERS 1,000 ML 150 ML IV CONT (11:15)
--- NOTE | 2025-10-29 11:45 | WPDANESEPPF ---
Anes - Initial Pre Proc Eval Procedure: Operation Date: 10/29/25 12:00 Proposed Procedures p Esophagogastroduodenoscopy EGD - Oniel Thomas MD Date/Time: 10/29/25 11:45 Surgeon: Oniel Thomas MD Pre Op Diagnosis: Gastric ulcer, unspecified as acute or chronic, wi Patient Data Age: 69 Gender: F Height: 1.6 m Weight: 89.9 kg Last Vital Signs Temp 36.2 C L 10/29/25 11:07 Pulse 81 10/29/25 11:07 Resp 16 10/29/25 11:07 BP 135/55 L 10/29/25 11:07 Pulse Ox 97 10/29/25 11:07 O2 Del Method Room Air 10/29/25 11:07 Allergies Allergy/AdvReac Type Severity Reaction Status Date / Time Penicillins Allergy Mild Unknown Verified 10/29/25 10:59 clindamycin Allergy Unknown Unknown Verified 10/29/25 10:59 meloxicam Allergy Unknown Unknown Verified 10/29/25 10:59 Quinolones Allergy Unknown Unknown Verified 10/29/25 10:59 Sulfa (Sulfonamide Allergy Unknown Unknown Verified 10/29/25 10:59 Antibiotics) sulfanilamide Allergy Unknown Unknown Verified 10/29/25 10:59 Home Medications ?Medication ?Instructions ?Recorded ?Confirmed ?Type hydroxychloroquine 200 mg tablet 200 mg PO BID 10/22/19 10/29/25 History (Plaquenil) adalimumab 40 mg/0.8 mL 40 mg subcut ONCE 10/27/23 10/08/25 History subcutaneous pen kit (Humira Pen) amlodipine 5 mg tablet 5 mg PO DAILY 09/06/24 10/29/25 History blood-glucose sensor (FreeStyle #1 ea 12/05/24 09/22/25 Rx Meg 3 Sensor device) blood-glucose,milieu therapist,cont #1 ea 12/05/24 09/22/25 Rx (FreeStyle Meg 3 [place]) pantoprazole 40 mg tablet,delayed 40 mg PO BID #180 tabs 09/11/25 10/29/25 Rx release albuterol 90 mcg-budesonide 80 2 inh inhalation 6XD PRN shortness 09/22/25 10/29/25 Rx mcg/actuation HFA aerosol inhaler of breath #32.1 grams (Airsupra) albuterol sulfate 1.25 mg/3 mL 1.25 mg (3 mL) inhalation Q4-6H 09/22/25 10/08/25 Rx solution for nebulization PRN bronchospasm #75 mL benzonatate 200 mg capsule 200 mg PO TID PRN cough #60 caps 09/22/25 10/08/25 Rx budesonide 0.5 mg/2 mL suspension 0.5 mg (2 mL) inhalation Q12H #60 09/22/25 10/29/25 Rx for nebulization mL cetirizine 10 mg tablet (24Hour 10 mg PO DAILY 10/08/25 10/29/25 History Allergy) temazepam 15 mg capsule 15 mg PO QHS PRN sleep #30 caps 10/10/25 Rx Patient hx anesthesia problems: none Family hx anesthesia problems: none Results Review: All pre-operative results and documents have been reviewed as part of the pre-operative evaluation. [facility] Past Medical History Medical History Otitis media Diverticulosis Sinusitis, acute Left otitis media Low iron Kidney function abnormal Iron deficiency anemia due to chronic blood loss Decreased GFR Chronic radicular lumbar pain Chronic pain of right knee Cardiac murmur Fainting Changing skin lesion Contact dermatitis Insomnia Hand tingling Brain aneurysm Low kidney function History of colon polyps Hx of gastric ulcer Hypoglycemia Family history of brain aneurysm Mild diastolic dysfunction Mild atrial enlargement, left Elevated blood pressure reading Rheumatoid arthritis Chronic GERD Brain aneurysm Surgical History Surgical History History of brain shunt Family History Family History Mother Family history of Alzheimer's disease Cerebrovascular accident Father Family history of lung cancer Family history of malignant neoplasm of bone Sibling , cancer Cancer Family history of Alzheimer's disease AA (aortic aneurysm) Social History Social History Years smoked: 1 Smoking status: Former smoker Tobacco type: cigarettes Second hand tobacco smoke exposure: Yes Alcohol intake: never Substance use: never Substance use type: does not use Lack of Transportation: No Lack of Food: Never True Current Housing: I Have Housing Concerned About Future Housing: No Difficulty Paying Gas/Electric Bills: No Difficulty Paying for Meds: No Currently Unemployed: No Education: High School Diploma/GED Difficulty w/ Childcare or Family Care: No Living arrangements: with family Occupation/Education: retired 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 Informed Consent: The patient's anesthetic plan and its attendant risks and benefits were discussed with the patient/family/POA. Questions were solicited and answers provided to the satisfaction of the patient/family/POA.
--- NOTE | 2025-10-29 11:49 | PM.HPGS ---
History of Present Illness History of Present Illness Consent: Risks, benefits, and alternatives have been discussed and questions answered. Patient agrees to proceed with procedure. Chief complaint: Gastric ulcer, unspecified as acute or chronic, wi Narrative: Akua Garner is a 69 year old female here for another egd, h/o gastric ulcer but now doing ok Review of Systems Review of Systems: All systems reviewed & are unremarkable except as noted in HPI and below PMFSH Past Medical History Medical History (Updated 10/29/25 @ 11:53 by Oniel Thomas MD) Hx of gastric ulcer Otitis media Diverticulosis Sinusitis, acute Left otitis media Low iron Kidney function abnormal Iron deficiency anemia due to chronic blood loss Decreased GFR Chronic radicular lumbar pain Chronic pain of right knee Cardiac murmur Fainting Changing skin lesion Contact dermatitis Insomnia Hand tingling Brain aneurysm Low kidney function History of colon polyps Hypoglycemia Family history of brain aneurysm Mild diastolic dysfunction Mild atrial enlargement, left Elevated blood pressure reading Rheumatoid arthritis Chronic GERD Brain aneurysm Surgical History Surgical History History of brain shunt Family History Family History Mother Family history of Alzheimer's disease Cerebrovascular accident Father Family history of lung cancer Family history of malignant neoplasm of bone Sibling , cancer Cancer Family history of Alzheimer's disease AA (aortic aneurysm) Social History Social History Years smoked: 1 Smoking status: Former smoker Tobacco type: cigarettes Second hand tobacco smoke exposure: Yes Alcohol intake: never Substance use: never Substance use type: does not use Lack of Transportation: No Lack of Food: Never True Current Housing: I Have Housing Concerned About Future Housing: No Difficulty Paying Gas/Electric Bills: No Difficulty Paying for Meds: No Currently Unemployed: No Education: High School Diploma/GED Difficulty w/ Childcare or Family Care: No Living arrangements: with family Occupation/Education: retired 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 Gender identity (if verbalized by the patient): Female Spiritual care concerns: No Meds Home Medications and Allergies Home Medications ?Medication ?Instructions ?Recorded ?Confirmed ?Type hydroxychloroquine 200 mg tablet 200 mg PO BID 10/22/19 10/29/25 History (Plaquenil) adalimumab 40 mg/0.8 mL 40 mg subcut ONCE 10/27/23 10/08/25 History subcutaneous pen kit (Humira Pen) amlodipine 5 mg tablet 5 mg PO DAILY 09/06/24 10/29/25 History blood-glucose sensor (FreeStyle #1 ea 12/05/24 09/22/25 Rx Meg 3 Sensor device) blood-glucose,bodywork therapist,cont #1 ea 12/05/24 09/22/25 Rx (FreeStyle Meg 3 [place]) pantoprazole 40 mg tablet,delayed 40 mg PO BID #180 tabs 09/11/25 10/29/25 Rx release albuterol 90 mcg-budesonide 80 2 inh inhalation 6XD PRN shortness 09/22/25 10/29/25 Rx mcg/actuation HFA aerosol inhaler of breath #32.1 grams (Airsupra) albuterol sulfate 1.25 mg/3 mL 1.25 mg (3 mL) inhalation Q4-6H 09/22/25 10/08/25 Rx solution for nebulization PRN bronchospasm #75 mL benzonatate 200 mg capsule 200 mg PO TID PRN cough #60 caps 09/22/25 10/08/25 Rx budesonide 0.5 mg/2 mL suspension 0.5 mg (2 mL) inhalation Q12H #60 09/22/25 10/29/25 Rx for nebulization mL cetirizine 10 mg tablet (24Hour 10 mg PO DAILY 10/08/25 10/29/25 History Allergy) temazepam 15 mg capsule 15 mg PO QHS PRN sleep #30 caps 10/10/25 Rx Allergies Allergy/AdvReac Type Severity Reaction Status Date / Time Penicillins Allergy Mild Unknown Verified 10/29/25 10:59 clindamycin Allergy Unknown Unknown Verified 10/29/25 10:59 meloxicam Allergy Unknown Unknown Verified 10/29/25 10:59 Quinolones Allergy Unknown Unknown Verified 10/29/25 10:59 Sulfa (Sulfonamide Allergy Unknown Unknown Verified 10/29/25 10:59 Antibiotics) sulfanilamide Allergy Unknown Unknown Verified 10/29/25 10:59 Vital Signs Vital Signs - 24 hr 10/29/25 11:07 Temperature 97.2 F L Pulse Rate 81 Respiratory Rate 16 Blood Pressure 135/55 L Pulse Oximetry 97 Oxygen Delivery Room Air Exam Const: General: comfortable and no acute distress HENMT: Face/Nose/Sinus: Normal nares present Eyes: General: appearance normal, both eyes and all related structures Neck: Neck: no JVD Resp: Auscultation: clear to auscultation bilaterally Cardio: Rate: regular rate Rhythm: regular rhythm GI: Inspection: non-distended GI Palp: Yes Soft to palpation Skin: General skin exam: normal color Neuro: Speech: normal speech Extrem: General: normal to inspection Assessment and Plan Assessment and plan (1) Chronic GERD: Code(s): K21.9 - Gastro-esophageal reflux disease without esophagitis Status: Acute Assessment and Plan: egd (2) Hx of gastric ulcer: Code(s): Z87.11 - Personal history of peptic ulcer disease Status: Acute
--- NOTE | 2025-10-29 11:53 | S_PTH ---
PATIENT: Akua Garner LOC: [facility]#:[id number] AGE/SX: 69/F ROOM: RE10/29/[address]: Oniel Thomas MD : 1955 BED: DIS: 10/29/2025 SPEC #: [id number] RECD: 10/29/25 12:47 STATUS: BRANDO RESherie #: [id number] STEVEN: 10/29/25 11:[address]: Oniel Thomas DEPT: [facility] Surgical RECD BY: Emilie Barney ENTERED: 10/29/25 12:48 SP TYPE: Surgical OTHR DR: Sergio Caballero MD Tissues: A - Gastric Biopsy Procedures: Hematoxylin and Eosin Stain Gross and Microscopic Level 4
[2025-10-29 11:54] VITALS: BP 131/65; PULSE 74; RESP 20; O2SAT 98
[2025-10-29 12:04] VITALS: BP 120/65; PULSE 72; RESP 18; O2SAT 97
[2025-10-29 12:14] VITALS: BP 125/71; PULSE 68; RESP 18; O2SAT 99
== END 2025-10-29 12:20 | disposition home or self-care (01) ==
PROVIDERS: PCP Family Medicine; Visit Provider Internal Medicine Gastroenterology
PROC: 0DJ08ZZ Inspection of Upper Intestinal Tract, Via Natural or Artificial Opening Endoscopic (ICD-10-PCS; CPT 43239; principal; 2025-10-29 12:00)
DX: K29.50 Unspecified chronic gastritis without bleeding (principal); K21.9 Gastro-esophageal reflux disease without esophagitis; Z87.11 Personal history of peptic ulcer disease; M06.9 Rheumatoid arthritis, unspecified; Z87.891 Personal history of nicotine dependence
CPT/HCPCS: 43239; 88305; J2704; J7120

== ENCOUNTER 2025-11-04 07:58 | Outpatient (CLI) | payer MEDICARE, SELFPAY ==
--- OUTSIDE RECORDS SUMMARY | 2025-11-04 08:02 | XMS_ITS | Clinical Summary ---
Author Organization [facility] Address [address] [place] [address] Care Team Providers Care Senior Budget Analyst Name Role Phone Nelida Mills Primary Care Provider Allergies Active Allergy Reactions Criticality Noted Date Comments Clindamycin Unknown,Itching 08/17/2017 Meloxicam Itching 08/17/2017 Quinolones Itching 07/19/2016 Sulfa Antibiotics Unknown,Itching,Hives Medium 011 Trimethoprim Rash Medium 10/04/2011 Medications folic acid 1 MG tablet Take 1 tablet (1 mg total) by mouth daily. 1 9 Active methotrexate 2.5 MG tablet Take 6 tablets by mouth once a week. 0 9 Active hydroxychloroqui ne 200 MG tablet Take 1 tablet (200 mg total) by mouth 2 (two) times daily. 0 9 Active cetirizine 10 MG chewable tablet Chew 1 tablet (10 mg total) by mouth daily as needed. Active clobetasol 0.05 % creamIndications :Lichen sclerosus Apply topically 2 (two) times daily. 60 g 0 Active aspirin 81 MG chewable tablet Chew 1 tablet (81 mg total) by mouth daily. 1 Active valACYclovir 500 MG tabletIndication s:Vaginal sore Take 2 tablets (1,000 mg total) by mouth 2 (two) times daily. 12 tablet 2 Active Ascorbic Acid 1000 MG Tab Take 1,000 mg by mouth. Active acetaminophen 500 MG tablet Take 1 tablet (500 mg total) by mouth 2 (two) times daily. Active famotidine (PEPCID) 40 MG tabletIndication s:Gastroesophage al reflux disease, unspecified whether esophagitis present TAKE 1 TABLET(40 MG) BY MOUTH DAILY 90 tablet 2 Active temazepam (RESTORIL) 15 MG capsuleIndicatio ns:Insomnia, unspecified type TAKE 1 CAPSULE BY MOUTH AT NIGHT NEEDED Strength: 15 mg 90 capsule 3 3 Active adalimumab (HUMIRA, 2 SYRINGE,) 40 MG/0.8ML injection Inject 0.8 mLs (40 mg total) into the skin every 14 (fourteen) days. 3 Active Active Problems Problem Noted Date Diagnosed Date Epigastric pain 02/01/2023 Overview (02/01/2023): Added automatically from request for surgery [id number] Overweight (BMI 25.0-29.9) 04/19/2022 Bleeding in brain due to brain aneurysm 02/09/20 21 Subarachnoid hemorrhage 01/26/2021 GIB (gastrointestinal bleeding) 05/22/2019 Upper GI bleed 05/22/2019 Inguinal lymphadenopathy 12/28/2017 Capsulitis of right foot 12/07/2017 Pain in female pelvis 12/05/2017 Freiberg's infraction 12/04/2017 Right foot pain 12/04/2017 Secondary lymphedema 09/21/2017 Vulvitis 09/06/2017 Stenosis of intervertebral foramina 08/31/2017 Other chronic pain 08/29/2017 Lymphedema of right lower extremity 08/17/2017 Inflammation of sacroiliac joint 03/20/2017 Pain of lower extremity 03/20/2017 Cervical myelopathy 03/09/2017 Lumbar radiculopathy 03/09/2017 Status post cervical spinal fusion 03/09/2017 Menopause present 10/16/2014 Spinal stenosis of lumbar region 03/21/2013 Cervical (neck) region somatic dysfunction 02/12 Herniation of intervertebral disc of cervical re gion 02/07/2013 Knee pain 10/02/2012 Tendon rupture of wrist 05/10/2012 Finger injury, left, initial encounter 2 Arthralgia of wrist 05/08/2012 Anemia 02/09/2012 Muscle pain 01/09/2012 Disorder of lung 10/19/2011 Monoclonal gammopathy of unknown significance (M THERESA) 08/25/2011 Polymyalgia rheumatica 05/30/2011 Encounter for long-term (cur rent) use of high-risk medication 04/29/2011 Fibromyalgia 03/05/2011 Osteoarthritis Resolved Problems Problem Noted Date Diagnosed Date Resolved Date Diabetes mellitus, controlled 12/04/2017 11/24/2021 Sciatica of right side 08/17/201709/21 Encounter for preventive health examination 06/09/2016 07/17/2020 Surgical follow-up care 11/18/201207/07 Immunizations Immunization Administration Dates Next Due PFIZER COVID-19 (ORIGINAL FO RMULATION, PURPLE CAP) mRNA, LNP-S, PF, 30 MCG/0.3 ML DOSE 06/16/2021,05/26/2021 Pneumococcal (Prevnar 20) 12/14/2023 Family History Medical History Relation Comments Arthritis Father Cancer Father Lung Disease Father Alzheimers Mother Arthritis Mother Hypertension Mother Stroke Mother Breast Cancer Neg Hx Relation Status Comments Father Mother Social History Tobacco Use Types Packs/Day Years Used Date Smoking Tobacco: Former Cigarettes Passive Smoke Exposure: Past Smokeless Tobacco: Never Alcohol Use Standard Drinks/Week Comments Yes 0 (1 standard drink = 0.6 oz pur e alcohol) Rare AUDIT-C Answer Date Recorded Q1: How often do you have a drink containing alc ohol? Monthly or less 10/26/2020 Q2: How many drinks containi ng alcohol do you have on a typical day when you are drinking? 1 or 2 10/26/2020 Frequency of Binge Drinking Not on file 10/07 PHQ-2 Answer Date Recorded Patient Health Questionnaire-2 Score 0 12/14/2023 Comments No Sex and Gender Information Value Date Recorded Sex Assigned at Female 04/12/2021 1:27 PM CDT Legal Sex Female 8:40 AM ROTARY DRILLER PROSPECTING Gender Identity Female 04/12/2021 1:27 PM CDT Sexual Orientation Straight 04/12/2021 1: 27 PM CDT Last Filed Vital Signs Vital Sign Reading Time Taken Comments Blood Pressure 146/85 12/14/2023 7:18 AM ROTARY DRILLER PROSPECTING Pulse 65 12/14/2023 7:13 AM ROTARY DRILLER PROSPECTING Temperature 36.6 C (97.9 F) 12/14/2023 7:13 AM ROTARY DRILLER PROSPECTING Respiratory Rate 20 12/14/2023 7:13 AM ROTARY DRILLER PROSPECTING Oxygen Saturation 97% 12/14/2023 7:13 AM ROTARY DRILLER PROSPECTING Inhaled Oxygen Concentration - - Weight 84.4 kg (186 lb) 12/14/2023 7:13 AM ROTARY DRILLER PROSPECTING Height 152.4 cm (5') 12/14/2023 7:13 AM ROTARY DRILLER PROSPECTING Body Mass Index 36.33 12/14/2023 7:13 AM ROTARY DRILLER PROSPECTING Plan of Treatment Health Maintenance Due Date Last Done Comments Colorectal Cancer Screening Colonoscopy (10 Years) 1956 DTaP, Tdap and Td Vaccines (1 - Tdap) 1975 Zoster Vaccines (1 of 2) 2006 RSV Immunization or 60+ Years (1 - Risk 60-74 years 1-dose series) 2016 COVID-19 Vaccine (3 - Pfizer risk series) 07/14/2021 06/16/2021, 05/26/2021 Annual Medicare Wellness Visit 2021 PHQ-2 (Physician [place]) 11/06/2024 12/14/2023 Influenza Adult (#1) 2025 Mammogram Screening 03/10/2027 03/10/2025, 03/08/2024, 12/13/2022, Additional history exists Colorectal Cancer Screening FIT/FOBT (1 Year) Discontinued 05/21/2019 Hepatitis C Completed 11/11/2021, 01/26/2021 Dexa Scan (General) Completed 12/13/2022, 9 Pneumococcal Vaccine: 50+ Years Completed 12/14/2023 Hepatitis A Vaccines Aged Out No long er eligible based on patient's age to complete this topic Meningococcal B Vaccine Aged Out No l onger eligible based on patient's age to complete this topic Meningococcal Vaccine Aged Out No leyla lalito eligible based on patient's age to complete this topic RSV Immunizations Under 20 Months Aged Out No longer eligible based on patient's age to complete this topic Procedures Procedure Name Priority Date/Time Associated Diagnosis Comments MG SCREENING W SARBJIT DIOGENES DIGI Routine 03/10/2025 4:00 PM CDT Visit for screening mammogram BONE DENSITY/DEXA Routine 12/13/2022 10: 17 AM ROTARY DRILLER PROSPECTING Post-menopause HEPATITIS C ANTIBODY Routine 11/11/2021 11:23 AM ROTARY DRILLER PROSPECTING High risk medication use Elevated C-reactive protein (CRP) Elevated sedimentation rate OCCULT BLOOD, FECES STAT 05/21/2019 10:39 PM CDT from Last 3 Months or Most Recently Relevant to Health Maintenance Results * MG SCREENING W SARBJIT DIOGENES DIGI (03/10/2025 4:00 PM CDT) Anatomical Region Laterality Modality Breast Bilateral Mammography 03/11/2025 9:03 AM CDT Impressions 03/11/2025 12:04 PM CDT ===== IMPRESSION: ===== 1. Stable mammographic appearance with no new findings to suggest malignancy in either breast. Assessment: ACR BI-RADS 2 - BENIGN FINDING(S) Recommendation: 1:Routine Screening Bilateral Comments: Ordered By: NELIDA MILLS Interpreted By: Suyapa Kelley, 03/11/2025 9:03 AM Narrative 03/11/2025 12:04 PM CDT [facility] [address] [place] [address] EXAMINATION: Digital bilateral screening mammogram with 3-D tomosynthesis EXAM DATE/TIME: 03/10/2025 3:28 PM REASON FOR EXAM: scr COMPARISON: 12/13/2022... March 08, 2024 Technique: Digital screening mammography of both breasts was performed in addition to 3-D Tomosynthesis technique. This study was read with the assistance of a computer-aided detection system. Tissue density: There are scattered areas of fibroglandular density. Findings: There is no new focal asymmetry, dominant mass lesion, area of skin thickening, or cluster of suspicious appearing calcifications in either breast to suggest malignancy. us Nelida Mills PA MAMMO Final Result * BONE DENSITY/DEXA (12/13/2022 10:17 AM ROTARY DRILLER PROSPECTING) Anatomical Region Laterality Modality Bone Bone Density 12/13/2022 10:1 4 AM ROTARY DRILLER PROSPECTING Impressions 12/13/2022 10:16 AM ROTARY DRILLER PROSPECTING IMPRESSION: Lumbar spine: Site of lowest bone mineral density: Lowest T score is -0.9 and L3. Hips: Site of lowest bone mineral density: Lowest T score is -0.9 at the left femoral neck. Within normal limits. Recommendations: All patients should ensure an adequate intake of dietary calcium and vitamin D. The NOF recommend adults under the age of 50 need 1000 mg of calcium and 400-800 IU of vitamin D daily. Effective therapy for the prevention and treatment of osteoporosis include bisphosphonates. Follow-up: People with diagnosed cases of osteoporosis or at high risk for fracture should have regular bone mineral density test. For patients eligible for Medicare, routine testing is allowed once every 2 years. Testing frequency can be increased to one year for patients who have rapidly progressing disease, those who are receiving or discontinuing medical therapy to restore bone mass, or have additional risk factors. Ordered By: NELIDA MILLS Interpreted By: Denton Gomez, 12/13/2022 10:14 AM Narrative 12/13/2022 10:16 AM ROTARY DRILLER PROSPECTING Examination: BONE DENSITOMETRY Exam Date/Time: 12/13/2022 9:41 AM Reason For Exam: Postmenopausal Comparison: None Technique:Dual energy x-ray absorptiometry utilized to determine bone mineral density lumbar spine and hips. Assessment: Spine: L1: BMD 0.966 g/cm? T-score: -0.2. L2: BMD 1.046 g/cm? T-score: 0.2. L3: BMD 0.985 g/cm? T-score: -0.9. L4: BMD 1.097 g/cm? T-score: 0.3. Mean L1 - L4: BMD 1.029 g/cm? T-score: -0.2. Hips: Left Femoral Neck: BMD 0.753 g/cm? T-score: -0.9. Left Proximal Femur: BMD 0.939 g/cm? T-score: 0.0. Procedure Note Denton Gomez MD - 12/13/2022 Examination: BONE DENSITOMETRY Exam Date/Time: 12/13/2022 9:41 AM Reason For Exam: Postmenopausal Comparison: None Technique:Dual energy x-ray absorptiometry utilized to determine bonemineral density lumbar spine and hips. Assessment: Spine: L1: BMD 0.966 g/cm? T-score: -0.2. L2: BMD 1.046 g/cm? T-score: 0.2. L3: BMD 0.985 g/cm? T-score: -0.9. L4: BMD 1.097 g/cm? T-score: 0.3. Mean L1 - L4: BMD 1.029 g/cm? T-score: -0.2. Hips: Left Femoral Neck: BMD 0.753 g/cm? T-score: -0.9. Left Proximal Femur: BMD 0.939 g/cm? T-score: 0.0. IMPRESSION: Lumbar spine: Site of lowest bone mineral density: Lowest T score is -0.9and L3. Hips: Site of lowest bone mineral density: Lowest T score is -0.9 at theleft femoral neck. Within normal limits. Recommendations: All patients should ensure an adequate intake of dietary calcium andvitamin D. The NOF recommend adults under the age of 50 need 1000 mg ofcalcium and 400-800 IU of vitamin D daily. Effective therapy for theprevention and treatment of osteoporosis include bisphosphonates. Follow-up: People with diagnosed cases of osteoporosis or at high risk for fractureshould have regular bone mineral density test. For patients eligible forMedicare, routine testing is allowed once every 2 years. Testing frequencycan be increased to one year for patients who have rapidly progressingdisease, those who are receiving or discontinuing medical therapy torestore bone mass, or have additional risk factors. Ordered By: NELIDA MILLS Interpreted By: Denton Gomez, 12/13/2022 10:14 AM Nelida Mills PA DEXA Final Result * HEPATITIS C ANTIBODY (11/11/2021 11:23 AM ROTARY DRILLER PROSPECTING) HEPATITIS C AB NON-REACTI VE NON-REACTI VE 11/11/2021 2:38 PM ROTARY DRILLER PROSPECTING [facility] 11/11/2021 11:2 3 AM ROTARY DRILLER PROSPECTING Yanni Carney [facility] Final Resu lt [facility] [address] [place] [address], [place] [phone] * (ABNORMAL) OCCULT BLOOD, FECES (05/21/2019 10:39 PM CDT) OCCULT BLOOD FECAL POSITIVE(A ) NEGATIVE 05/21/2019 10:42 PM CDT [facility] STOOL SPECIMEN / Unknown 05/21/2019 10:39 PM CDT Keisha Scott MD BODY FLUIDS AND STOOLS OR DERABLES Final Result Performing Organization Address City/[facility]/ZIP Co de Phone Number [facility] [address] [place] [address], [place] [phone] from Last 3 Months or Most Recently Relevant to Health Maintenance Insurance [place] [address] [facility] MEDICARE Advance Directives * Full Code (Latest Code Status on File) Date Activated Date Inactivated Comments 05/22/2019 1:58 AM 05/27/2019 8:32 PM Care Teams Senior Budget Analyst Relationship Specialty [place] [address] [place] [address] PCP - General PHYSICIAN TAPPER SHANK 02/06/25
--- OUTSIDE RECORDS SUMMARY | 2025-11-04 08:02 | XMS_ITS | Encounter Summary ---
Author Organization [facility] Address [address] [place] [address] Care Team Providers Care Public Safety Officer Name Role Phone Sergio Caballero MD Primary Care Provider [phone] Birgit Healy MD Unavailable Encounter Details Date Type Department Care Team (Late st Contact Info) Description 05/02/2025 Orders Only [facility] [place] [facility] [place] [address] [place] [id number] Scanning, Provider Social History Tobacco Use Types Packs/Day Years Used Date Smoking Tobacco: Former Smokeless Tobacco: Never Alcohol Use Standard Drinks/Week Comments No 0 (1 standard drink = 0.6 oz pur e alcohol) Comments Unknown Sex and Gender Information Value Date Recorded Sex Assigned at Not on file Legal Sex Female 1:12 AM WATER QUALITY SPECIALIST Gender Identity Not on file Sexual Orientation Not on file documented as of this encounter Plan of Treatment Not on file documented as of this encounter Procedures Procedure Name Priority Date/Time Associated Diagnosis Comments SCAN - RADIOLOGY/IMAGING 05/02/2025 documented in this encounter Results * SCAN - RADIOLOGY/IMAGING (05/02/2025) Anatomical Region Laterality Modality Other us Provider Scanning Final Result documented in this encounter Visit Diagnoses Not on filedocumented in this encounter Care Teams Public Safety Officer Relationship Specialty Start Date End Date Sergio Caballero MD PCP - General 03/14/16 [place] [id number] [facility] [address] [place] [address] Consulting Physician Rheumatology 07/25/18 documented as of this encounter
--- OUTSIDE RECORDS SUMMARY | 2025-11-04 08:02 | XMS_ITS | Clinical Summary ---
Author Organization [facility] Address [address] [place] [address] Care Team Providers Care Manufacturing Controls Engineer Name Role Phone Sheron Camargo MD Primary Care Provider Source Comments [facility],non-owned Affiliates and Associated Physician Practices is amultiple site organization consisting of ambulatory clinics and hospital sitesin [place], [place], [place] and [place]. This disclosure is being madepursuant to the Care Everywhere program and may not contain all information available regarding this patient. Last updated 18.[facility] Allergies Active Allergy Reactions Criticality Noted Date [...] Encounters Date Type Department Care Team Description 09/23/2025 Travel from Last 3 Months Family History [...] on file Legal Sex Female 5:56 PM TAPPER BALANCE WHEEL SCREW HOLE Gender Identity Not on file Sexual Orientation [...] Care Team (Late st Contact Info) Description 11/19/2025 3:00 PM TAPPER BALANCE WHEEL SCREW HOLE Office Visit [facility] - Ophthalmology [address] [place] [phone] Sarah Maria MD [address] [place] [address] [place] [phone] Health Maintenance Due Date Last Done Comments [...] 2006 ZOSTER VACCINE (1 of 2) 2006 MEDICARE AWV CALENDAR YEAR 2024 COVID-19 VACCINE ( season) 2025 06/16/2021, 05/26/2021 INFLUENZA VACCINE (#1) 2025 10/08/2012, 2010 MAMMOGRAM 03/10/2027 03/10/2025, 05/0 03/2025, 03/08/2024, Additional history exists Respiratory Syncytial [...] this topic Medical Devices Implanted Type Area Community Reinvestment Act Officer Device Identifier Shelf Expiration Date Model / Serial / Lot Pipeline Implanted:Qty: 1 on 01/29/2021 at [facility] Right: Carotid 11/20/2023 [id number] / / [id number] Description:DR ortez Procedures Procedure Name Priority Date/Time Associated Diagnosis Comments HEPATITIS C AB SCREEN RFLX NAAT QUANT STAT 01/26/2021 12:18 PM CDT from Last 3 Months or Most Recently Relevant to Health Maintenance Results * HEPATITIS C AB SCREEN RFLX NAAT QUANT (01/26/2021 12:18 PM CDT) Hepatitis C Antibody Non-react idania Non-reac tive 01/26/2021 1:31 PM CDT [facility] Comment:Hepatitis C Antibody screen indicates [...] 12:18 PM CDT 01/26/2021 12:47 PM CDT Alexus Zaidi MD LAB - CHEMISTRY ORDERABLES Fin al Result [facility] [address] [place] [address], [facility] [phone] from Last 3 Months or Most Recently Relevant to Health Maintenance Insurance MEDICARE MEDICARE UHC MANAGED MEDICARE ADV MANAGED MEDICARE ADV Advance Directives * Full Code (Latest Code Status on File) Date Activated Date Inactivated Comments 01/26/2021 11:37 AM 02/03/2021 5:49 PM Care Teams Manufacturing Controls Engineer Relationship Specialty Start Date End Date Sheron Camargo MD PCP - General Internal Medicine 01/26/21
--- OUTSIDE RECORDS SUMMARY | 2025-11-04 08:02 | XMS_ITS | Patient Health Record ---
Author Organization [facility] logy Address [id number] [place] [address] [address] [place] [address] Care Team Providers Care Sales And Marketing Coordinator Name Role Phone Yanni Carney Unavailable [phone] Allergies Allergen (clinical drug ingredient) Drug/Non Drug Allergy documented on EMR Reaction Allergy Type Onset Date Status calcium carbonate Calcium Unknown Drug Allergy Active clindamycin Clindamycin Unknown Drug Allergy Act idania meloxicam Meloxicam Unknown Drug Allergy Active Medicinal quinolone and acting as antibacterial agent (FN) Quinolones Unknown Drug Allergy Active Substance with sulfonamide structure and antibacterial mechanism of action (substance) Sulfa Antibiotics Unknown Drug Allergy Active Results Component Value Reference Range Flag Notes COMPREHENSIVE METABOLIC PANE L (04712) Reviewed date:10/17/2025 11:44:14 AM Interpretation: Performing Lab:[place], [facility]-[id number] [address] [facility], [id number] Aaliyah Batista MD Notes/Report: NON-FASTING; NON-FASTING; NON-FASTING; NON-FASTING GLUCOSE 141 65-99 mg/dL H Fasting reference interval For someone without known diabetes, a glucose value >125 mg/dL indicates that they may have diabetes and this should be confirmed with a follow-up test. UREA NITROGEN (BUN) 25 7-25 mg/dL N CREATININE 1.21 0.50-1.05 mg/dL H EGFR 49 > OR = 60 mL/min/1.73m2 L BUN/CREATININE RATIO 21 6-22 (calc) N SODIUM 140 135-146 mmol/L N POTASSIUM 4.3 3.5-5.3 mmol/L N CHLORIDE 102 98-110 mmol/L N CARBON DIOXIDE 23 20-32 mmol/L N CALCIUM 9.4 8.6-10.4 mg/dL N PROTEIN, TOTAL 7.7 6.1-8.1 g/dL N ALBUMIN 4.2 3.6-5.1 g/dL N GLOBULIN 3.5 1.9-3.7 g/dL (calc) N ALBUMIN/GLOBULIN RATIO 1.2 1.0-2.5 (calc) N BILIRUBIN, TOTAL 0.3 0.2-1.2 mg/dL N ALKALINE PHOSPHATASE 73 37-153 U/L N AST 25 10-35 U/L N ALT 20 6-29 U/L N CBC (INCLUDES DIFF/PLT) (REF L) () Reviewed date:10/17/2025 11:32:54 AM Interpretation: Performing Lab:RICHARD [facility]-[id number] Michele Pina, [id number] Aaliyah Batista MD Notes/Report: NON-FASTING; NON-FASTING; NON-FASTING; NON-FASTING WHITE BLOOD CELL COUNT 8.1 3.8-10.8 Thousand/uL N RED BLOOD CELL COUNT 3.94 3.80-5.10 Million/uL N HEMOGLOBIN 10.9 11.7-15.5 g/dL L HEMATOCRIT 34.6 35.9-46.0 % L MCV 87.8 81.4-101.7 fL N MCH 27.7 27.0-33.0 pg N MCHC 31.5 31.6-35.4 g/dL L RDW 13.4 11.0-15.0 % N PLATELET COUNT 313 140-400 Thousand/uL N MPV 11.1 7.5-12.5 fL N ABSOLUTE NEUTROPHILS [phone] cells/uL N ABSOLUTE LYMPHOCYTES 777 972-3370 cells/uL L ABSOLUTE MONOCYTES 57 200-950 cells/uL L ABSOLUTE EOSINOPHILS 0 15-500 cells/uL L ABSOLUTE BASOPHILS 8 0-200 cells/uL N NEUTROPHILS 93.3 N LYMPHOCYTES 5.9 N MONOCYTES 0.7 N EOSINOPHILS 0.0 N BASOPHILS 0.1 N SED RATE BY MODIFIED YELITZA LOFTON (809) Reviewed date:10/17/2025 11:32:54 AM Interpretation: Performing Lab:RICHARD [employer] Stormy-[id number] Michele Pina, [id number] Aaliyah Batista MD Notes/Report: NON-FASTING; NON-FASTING; NON-FASTING; NON-FASTING SED RATE BY MODIFIED WESTERGREN 36 < OR = 30 mm/h H C-REACTIVE PROTEIN (4420) Reviewed date:10/17/2025 11:32:54 AM Interpretation: Performing Lab:[place], [facility]-[id number] Michele Pina, [id number] Aaliyah Batista MD Notes/Report: NON-FASTING; NON-FASTING; NON-FASTING; NON-FASTING C-REACTIVE PROTEIN 7.4 <8.0 mg/L N Reason For Referral No Information Medications Medication SIG (Take, Route, Frequency, Duration) Notes Start Date End Date Status amLODIPine Besylate 5 MG Tablet TAKE 1 TABLET BY MOUTH ONCE DAILY Oral; Duration: 90 Days Active Hydroxychloroquine Sulfate 2 00 MG Tablet TAKE 1 TABLET BY MOUTH TWICE DAILY Oral; Duration: 90 Days Active Temazepam 15 MG Capsule Oral; Duration: 30 Days Active Breztri Aerosphere 160-9-4.8 MCG/ACT Aerosol Inhalation; Duration: 30 Days Active predniSONE 5 MG Tablet Oral; Duration: 3 0 Days Active Ipratropium-Albuterol 0.5-2. 5 (3) MG/3ML Solution Inhalation; Duration: 5 Days Active Vital Signs Heart Rate 97 /min 10/15/2025 Temperature 97.6 degrees Fahrenheit 10/15/2025 Oximetry 92 % 10/15/2025 Weight-kg 89.54 kg 10/15/2025 Weight 197.4 lbs 10/15/2025 Encounters Encounter Location Date Provider Diagnosis [facility] [address] [place] [address] 10/15/2025 Yanni Carney Rheumatoid arthritis of multiple sites with negative rheumatoid factor M06.09 ; High risk medication use Z79.899 and Chronic cough R05.3 [facility] Rheumatology [id number] [place] [address] [address] [place] [address] 10/21/2025 Yanni Carney Rheumatoid arthritis of multiple sites with negative rheumatoid factor M06.09 and Chronic cough R05.3 Assessments Encounter Date Diagnosis (ICD Code) Assessment Notes Treatment Notes Treatment Clinical Notes Section Notes 10/15/2025 High risk medication use (ICD-10 - Z79.899) Seronegative RA with good disease control on hydroxychloroquine; concern for medication-related or RA-related pulmonary symptoms. Chronic cough currently managed as asthma by visual aid expert. Plan to hold adalimumab while evaluating pulmonary status. Problem #1: Seronegative Rheumatoid ArthritisAssessment: Clinically stable; minimal joint activity (isolated left middle finger PIP redness, mild hand soreness likely activity-related). No morning stiffness. Concern that Humira may be exacerbating cough. Plan: Hold adalimumab for now; patient has 5 doses on hand in case of future flare. Continue hydroxychloroquine 200 mg twice daily. Obtain ESR/CRP today to assess inflammatory activity. Monitor joint symptoms; patient to call if flare or increased pain/swelling. Problem #2: Chronic Cough / Asthma vs. RA-related Interstitial Lung DiseaseAssessment: 1-year history of worsening cough with recent FEV1 73% after treatment; currently on prednisone and inhalers per visual aid expert. Possible RA-associated lung disease or adalimumab-related effect. Plan: Continue prednisone and inhaler regimen as prescribed by visual aid expert. Corporate Safety Director follow-up in 1 week (scheduled early due to holiday timing). If cough or hoarseness does not improve, patient to notify provider, who will then order high-resolution CT chest. Patient to report any worsening respiratory symptoms immediately. Problem #3: History of Bleeding Gastric UlcersAssessment: Recent ulcer bleed while on baby aspirin; aspirin discontinued. Plan: Avoid NSAIDs/aspirin unless directed by prescribing physician. Follow-up: Routine rheumatology follow-up per usual schedule; sooner if flare or persistent pulmonary issues. 10/15/2025 Rheumatoid arthritis of multiple sites with negative rheumatoid factor (ICD-10 - M06.09) Seronegative RA with good disease control on hydroxychloroquine; concern for medication-related or RA-related pulmonary symptoms. Chronic cough currently managed as asthma by visual aid expert. Plan to hold adalimumab while evaluating pulmonary status. Problem #1: Seronegative Rheumatoid ArthritisAssessment: Clinically stable; minimal joint activity (isolated left middle finger PIP redness, mild hand soreness likely activity-related). No morning stiffness. Concern that Humira may be exacerbating cough. Plan: Hold adalimumab for now; patient has 5 doses on hand in case of future flare. Continue hydroxychloroquine 200 mg twice daily. Obtain ESR/CRP today to assess inflammatory activity. Monitor joint symptoms; patient to call if flare or increased pain/swelling. Problem #2: Chronic Cough / Asthma vs. RA-related Interstitial Lung DiseaseAssessment: 1-year history of worsening cough with recent FEV1 73% after treatment; currently on prednisone and inhalers per visual aid expert. Possible RA-associated lung disease or adalimumab-related effect. Plan: Continue prednisone and inhaler regimen as prescribed by visual aid expert. Corporate Safety Director follow-up in 1 week (scheduled early due to holiday timing). If cough or hoarseness does not improve, patient to notify provider, who will then order high-resolution CT chest. Patient to report any worsening respiratory symptoms immediately. Problem #3: History of Bleeding Gastric UlcersAssessment: Recent ulcer bleed while on baby aspirin; aspirin discontinued. Plan: Avoid NSAIDs/aspirin unless directed by prescribing physician. Follow-up: Routine rheumatology follow-up per usual schedule; sooner if flare or persistent pulmonary issues. 10/21/2025 Chronic cough (ICD-10 - R05.3) 10/21/2025 Rheumatoid arthritis of multiple sites with negative rheumatoid factor (ICD-10 - M06.09) 10/15/2025 Chronic cough (ICD-10 - R05.3) Seronegative RA with good disease control on hydroxychloroquine; concern for medication-related or RA-related pulmonary symptoms. Chronic cough currently managed as asthma by visual aid expert. Plan to hold adalimumab while evaluating pulmonary status. Problem #1: Seronegative Rheumatoid ArthritisAssessment: Clinically stable; minimal joint activity (isolated left middle finger PIP redness, mild hand soreness likely activity-related). No morning stiffness. Concern that Humira may be exacerbating cough. Plan: Hold adalimumab for now; patient has 5 doses on hand in case of future flare. Continue hydroxychloroquine 200 mg twice daily. Obtain ESR/CRP today to assess inflammatory activity. Monitor joint symptoms; patient to call if flare or increased pain/swelling. Problem #2: Chronic Cough / Asthma vs. RA-related Interstitial Lung DiseaseAssessment: 1-year history of worsening cough with recent FEV1 73% after treatment; currently on prednisone and inhalers per visual aid expert. Possible RA-associated lung disease or adalimumab-related effect. Plan: Continue prednisone and inhaler regimen as prescribed by visual aid expert. Corporate Safety Director follow-up in 1 week (scheduled early due to holiday timing). If cough or hoarseness does not improve, patient to notify provider, who will then order high-resolution CT chest. Patient to report any worsening respiratory symptoms immediately. Problem #3: History of Bleeding Gastric UlcersAssessment: Recent ulcer bleed while on baby aspirin; aspirin discontinued. Plan: Avoid NSAIDs/aspirin unless directed by prescribing physician. Follow-up: Routine rheumatology follow-up per usual schedule; sooner if flare or persistent pulmonary issues. 10/15/2025 Other Last HC sreening in Sep 2025 Seronegative RA with good disease control on hydroxychloroquine; concern for medication-related or RA-related pulmonary symptoms. Chronic cough currently managed as asthma by visual aid expert. Plan to hold adalimumab while evaluating pulmonary status. Problem #1: Seronegative Rheumatoid ArthritisAssessment: Clinically stable; minimal joint activity (isolated left middle finger PIP redness, mild hand soreness likely activity-related). No morning stiffness. Concern that Humira may be exacerbating cough. Plan: Hold adalimumab for now; patient has 5 doses on hand in case of future flare. Continue hydroxychloroquine 200 mg twice daily. Obtain ESR/CRP today to assess inflammatory activity. Monitor joint symptoms; patient to call if flare or increased pain/swelling. Problem #2: Chronic Cough / Asthma vs. RA-related Interstitial Lung DiseaseAssessment: 1-year history of worsening cough with recent FEV1 73% after treatment; currently on prednisone and inhalers per visual aid expert. Possible RA-associated lung disease or adalimumab-related effect. Plan: Continue prednisone and inhaler regimen as prescribed by visual aid expert. Corporate Safety Director follow-up in 1 week (scheduled early due to holiday timing). If cough or hoarseness does not improve, patient to notify provider, who will then order high-resolution CT chest. Patient to report any worsening respiratory symptoms immediately. Problem #3: History of Bleeding Gastric UlcersAssessment: Recent ulcer bleed while on baby aspirin; aspirin discontinued. Plan: Avoid NSAIDs/aspirin unless directed by prescribing physician. Follow-up: Routine rheumatology follow-up per usual schedule; sooner if flare or persistent pulmonary issues. Plan Of Treatment Pending Test Test Name Order Date CT Scan : Chest without contrast 025 Next Appt Details Provider Name:Yanni Carney, 01/14/2026 09:50:00 AM, [address], [address], [place], [address], Insurance Providers Payer Name Payer Address Payer Phone Subscriber Number Group Number Insured Name Patient Relationship to Insured Coverage Start Date Coverage End Date [facility] [employer] [address] [place] [address] [id number] Akua Garner Self - patient is the insured
--- OUTSIDE RECORDS SUMMARY | 2025-11-04 08:02 | XMS_ITS | Clinical Summary ---
Author Organization [facility] Address [address] [address] Care Team Providers Care Mobile Equipment Mechanic Name Role Phone Sergio Caballero MD Primary Care Provider + [phone] Birgit Healy MD Unavailable Allergies Active Allergy Reactions Criticality Noted Date Comments Clindamycin Itching,Unknown Low 02/09/2012 Meloxicam Unknown,Itching Low 05/30/2011 Penicillins Unknown Low 05/06/2025 Patient received ceftriaxone in April 2025 Quinolones Unknown Sulfa (Sulfonamide Antibiotics) Itching,Unknown,Urt icaria Medium 10/04/2011 Trimethoprim Rash Medium 10/04/2011 Medications hydroxychloroqu ine (PLAQUENIL) 200 mg tablet Take 1 tablet (200 mg total) by mouth 2 (two) times a day 0 04/05/2019 Active temazepam (RESTORIL) 7.5 mg capsule Take by mouth nightly as needed 2 03/26/2019 Active aspirin 81 mg enteric coated tablet Take 1 tablet (81 mg total) by mouth daily Active adalimumab (HUMIRA, CF, SYRINGE) 40 mg/0.4 mL syringe kit Inject 0.4 mL (40 mg total) under the skin every 14 (fourteen) days Active acetaminophen (TYLENOL) 500 mg tablet Take 1 tablet (500 mg total) by mouth 2 (two) times a day Active amLODIPine (NORVASC) 5 mg tablet Take 1 tablet by mouth once daily 90 tablet 1 07/14/2025 Active Active Problems Problem Noted Date Diagnosed Date Essential hypertension 08/05/2024 Syncope and collapse 01/29/2024 Inguinal lymphadenopathy [...] Encounters Date Type Department Care Team Description 08/11/2025 11:15 AM CDT Office Visit [facility] Cardiology [address] [place] [address] Komal Roa MD Essential hypertension (Primary Dx); Syncope and collapse from Last 3 Months Surgical History Surgery Date Site/Laterality Comments EPIDURAL INJECTION LUMBOSACRAL 01/24/2013 N/A UT CHOLECYSTECTOMY Cholecystectomy - (Added by TW Conv) NECK SURGERY Neck Surgery - anterior cervical discectomy (Added by TW Conv) SINUS SURGERY Sinus Surgery - (Added by TW Conv) UT TOTAL ABDOMINAL HYSTERECT W/WO RMVL TUBE OVARY Hysterectomy - (Added by TW Conv) UT ARTHRP KNE CONDYLE&PLATU MEDIAL&LAT COMPARTMENTS Total Knee Replacement Right - (Added by TW Conv) KNEE SURGERY Knee Surgery Left - (Added by TW Conv) FL FLUORO GUIDED LUMBAR PUNCTURE 05/28/2018 Right FL UPPER GI AIR CONTRAST W KUB 05/28/2018 Left FL FLUORO GUIDED LUMBAR PUNCTURE 10/22/2018 Right TUBAL LIGATION 1985 SECTION 1984 Medical History Medical History Date Comments Personal [...] (Added by TW Conv) Chronic pain Hypertension Arthritis 2018 Family History Medical History Relation Name Comments Alcohol abuse Father father Family history of alcoholism - (Added by TW Conv) Cancer Father father Family history of malignant neoplasm - (Added by TW Conv) Lung cancer Father father Family history of lung cancer - (Added by TW Conv) Hypertension Mother mother Family history of hypertension - (Added by TW Conv) Relation Name Status Comments Father father Mother mother Social History Tobacco Use Types Packs/Day Years Used Date Smoking Tobacco: Former Cigarettes 0.3 1.2 0 05/24/1976 - 08/14/1977 Smokeless Tobacco: Never Tobacco Cessation:Counseling Given: Not Answered Alcohol Use Standard Drinks/Week Comments No 0 (1 standard drink = 0.6 oz pur e alcohol) Comments Unknown Sex and Gender Information Value Date Recorded Sex Assigned at Not on file 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 Gender Identity Not on file Sexual Orientation Not on file Last Filed Vital Signs Vital Sign Reading Time Taken Comments Blood Pressure 128/82 08/11/2025 11:07 AM CDT Pulse 91 08/11/2025 11:07 AM CDT Temperature 36.9 C (98.4 F) 04/11/2019 11:58 AM CDT Respiratory Rate 12 04/11/2019 2:10 PM CDT Oxygen Saturation 93% 08/11/2025 11: 07 AM CDT Inhaled Oxygen Concentration - - Weight 90.2 kg (198 lb 12.8 oz) 025 11:07 AM CDT Height 160 cm (5' 3) 08/11/2025 11:07 AM CDT Body Mass Index 35.22 08/11/2025 11:07 AM CDT Plan of Treatment Health Maintenance Due Date Last Done Comments Colon Cancer Screening-Colonoscopy 1955 Depression Screening 1955 Hepatitis C Screening 1955 DTaP/Tdap/Td Vaccine (1 - Tdap) 1967 Hepatitis B Screening 1974 Zoster Vaccine (1 of 2) 1975 Fall Risk Assessment 08/06/2019 08/06/2018 Covid-19 Vaccine (3 - Pfizer risk series) 07/14/2021 06/16/2021, 05/26/2021 Well Visit 65+ 2021 Osteoporosis Screening-Bone Density Scan 12/13/2024 12/13/2022 Influenza Vaccine (#1) 2025 10/08/2012, 2010 Breast Cancer Screening-Mammogram 03/10/2026 03/10/2025, 03/10/2025, 03/08/2024, Additional history exists Pneumococcal vaccine 65+ Completed 12/14/2023 Procedures Procedure Name Priority Date/Time Associated Diagnosis Comments POCT LIPID PANEL Routine 08/11/2025 1:55 PM CDT Essential hypertension from Last 3 Months Results * (ABNORMAL) POCT lipid panel (08/11/2025 1:55 PM CDT) Cholesterol, POC 221 <200 MG/DL HDL, POC 88 >=40 mg/dL Triglycerides, POC 67 <=149 mg/dL LDL Cholesterol POC 121 <=129 mg/dL Chol/HDL Ratio, POC 1.4 NONE Non-HDL Cholesterol, POC 134 NONE mg/dL Cholesterol Total, POC 221(A) 30 - 199 mg/dL Capillary blood 08/11/2025 1 :55 PM CDT Komal Roa MD POINT OF CARE TEST O RDERABLES Final Result from Last 3 Months Insurance [facility] ACCESS FORMERLY [facility] ACCESS CHOICE UHC MEDICARE [facility]ANT[facility] Address: [address] [address] [place] [address] Care Teams Mobile Equipment Mechanic Relationship Specialty Start Date End Date Sergio Caballero MD PCP - General 03/14/16 [place] [id number] [address] Consulting Physician Rheumatology 07/25/18
--- OUTSIDE RECORDS SUMMARY | 2025-11-04 08:02 | XMS_ITS | Encounter Summary ---
Author Organization [facility] Address [facility] [place] [address] Care Team Providers Care Conduit Helper Name Role Phone Sheron Camargo MD Primary Care Provider Encounter Details Date Type Department Care Team (Late Contact Info) Description 03/23/2020 Lab Requisition [facility] [address] [place] [address] Social History Tobacco Use Types Packs/Day Years Used Date Smoking Tobacco: Never Assessed Comments Unknown Sex and Gender Information Value Date Recorded Sex Assigned at Not on file Legal Sex Female 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 - Ophthalmology [address] [place] [phone] Sarah Maria MD [address] [place] [address] [place] [phone] documented as of this encounter Procedures Procedure Name Priority Date/Time Associated Diagnosis Comments SARS-COV-2 (COVID-19) IN HOUSE Routine 03/23/2020 11:51 AM CDT documented in this encounter Results * SARS-COV-2 (COVID-19) IN HOUSE (03/23/2020 11:51 AM CDT) COVID-19 PCR Not detected Not detected, Invalid 03/24/2020 6:33 AM CDT [facility] Microbiology SPECIMEN FROM NASOPHARYNGEAL STRUCTURE / Unknown Collection / Unknown 03/23/2020 11:51 AM CDT 03/23/2020 5:05 PM CDT Narrative [facility] - 03/24/2020 6:33 AM CDT This Real Time RT-PCR assay was developed and its performance characteristics determined by [facility]. This test has been authorized [...] LAB - MICROBIOLOGY ORDERABLES Fi nal Result [facility] [address] [place], [place] [address], [facility] [phone] documented in this encounter Visit Diagnoses Not on filedocumented in this encounter Care Teams Conduit Helper Relationship Specialty Start Date End Date Sheron Camargo MD PCP - General Internal Medicine 01/26/21 documented as of this encounter
--- OUTSIDE RECORDS SUMMARY | 2025-11-04 08:02 | XMS_ITS | Encounter Summary ---
Author Organization [facility] Address [facility] [place] [address] Care Team Providers Care Nuclear Unit Operator Name Role Phone Sergio Caballero MD Primary Care Provider + [phone] Sheron Camargo MD Primary Care Provider + [phone] Camron Greenwood MD Primary Care Provider [phone] Priti Mills Primary Care Provider + [phone] Encounter Details Date Type Department Care Team (Late st Contact Info) Description 05/29/2019 Hospital Follow-up Call [facility] Telemetry Unit [address] [place], [place] [id number] Kaela Holman Social History Tobacco Use Types Packs/Day Years Used Date Smoking Tobacco: Former Cigarettes Smokeless Tobacco: Never Alcohol Use Standard Drinks/Week Comments Yes 0 (1 standard drink = 0.6 oz pur e alcohol) wine cooler Comments Unknown Sex and Gender Information Value Date Recorded Sex Assigned at Female 04/12/2021 1:27 PM CDT Legal Sex Female 8:40 AM COMMUNICATIONS MAINTAINER Gender Identity Female 04/12/2021 1:27 PM CDT Sexual Orientation Straight 04/12/2021 1: 27 PM CDT documented as of this encounter Functional Status * RETIRED Are you deaf or do you have serious difficulty hearing Answer Date of Assessment Author Status Yes 05/22/2019 2:13 AM CDT Activ e * RETIRED Are you blind or do you have serious difficulty seeing, even when wearing glasses? Answer Date of Assessment Author Status No 05/22/2019 2:13 AM CDT Activ e * Do you have serious difficulty walking or climbing stairs? Answer Date of Assessment Author Status Yes 05/22/2019 2:13 AM CDT Sapphire Nguyen RN Active * Do you have difficulty dressing or bathing? Answer Date of Assessment Author Status No 05/22/2019 2:13 AM CDT Sapphire Nguyen RN Active * Because of a physical, mental, or emotional condition, do you have difficulty doing errands alone such as visiting a doctor's office or shopping? Answer Date of Assessment Author Status No 05/22/2019 2:13 AM THOMPSONT Sapphire Nguyen RN Active documented as of this encounter Mental Status * Because of a physical, mental, or emotional condition, do you have serious difficulty concentrating, remembering, or making decisions? Answer Entry Date Author Status No 05/22/2019 2:13 AM CDT Sapphire Nguyen RN Active documented in this encounter Plan of Treatment Not on file documented as of this encounter Visit Diagnoses Not on filedocumented in this encounter Additional Health Concerns Infection Onset Date Last Indicated Resolved Time COVID-19 Rule Out 09/22/2020 09/22/2020 09/26/2020 10:30 AM COMMUNICATIONS MAINTAINER COVID-19 Confirmed 09/22/2020 09/22/2020 12:34 AM COMMUNICATIONS MAINTAINER COVID-19 Rule Out 01/26/2021 01/26/2021 01/26/2021 7:31 AM CDT COVID-19 Rule Out 01/26/2021 01/26/2021 01/26/2021 10:31 AM CDT documented as of this encounter Care Teams Nuclear Unit Operator Relationship Specialty Start Date End Date Sergio Caballero MD [address] [place] [id number] PCP - General FAMILY PRACTICE 05/22/19 11/19/19 Sheron Camargo [place] [address] [address] PCP - General INTERNAL MEDICINE 11/20/19 02/09/23 [place] [address] [place] [address] PCP - General FAMILY PRACTICE 02/10/23 07/29/24 [place] [address] [place] [address] PCP - General PHYSICIAN ADJUNCT POLITICAL SCIENCE INSTRUCTOR 02/06/25 documented as of this encounter
--- OUTSIDE RECORDS SUMMARY | 2025-11-04 08:02 | XMS_ITS | Encounter Summary ---
Author Organization [facility] Address [facility] [place] [address] Care Team Providers Care Pest Locator Name Role Phone Taya Kumar Deng GARCIA Primary Care Provider + [phone] Sergio Caballero MD Primary Care Provider [phone] Sheron Camargo MD Primary Care Provider + [phone] Camron Greenwood MD Primary Care Provider [phone] Priti Mills Primary Care Provider + [phone] Encounter Details Date Type Department Care Team (Late st Contact Info) Description 08/17/[address] [facility] CONVERSION [address] [place] [address] , Generic Conversion, Social History Tobacco Use Types Packs/Day Years Used Date Smoking Tobacco: Never Assessed Comments Unknown Sex and Gender Information Value Date Recorded Sex Assigned at Female 04/12/2021 1:27 PM CDT Legal Sex Female 8:40 AM SOAKER HELPER Gender Identity Female 04/12/2021 1:27 PM CDT Sexual Orientation Straight 04/12/2021 1: 27 PM CDT documented as of this encounter Plan of Treatment Not on file documented as of this encounter Visit Diagnoses Not on filedocumented in this encounter Additional Health Concerns Infection Onset Date Last Indicated Resolved Time C. difficile Comment:NO CDIFF NOTED. IP AWARE 06/15/2017 06/15/2017 019 8:02 AM CDT MRSA Comment:MRSA WOUND 02/201805/22/2019 05/22/2019 05/27/2019 10: 02 AM CDT COVID-19 Rule Out 09/22/2020 09/22/2020 09/26/2020 10:30 AM SOAKER HELPER COVID-19 Confirmed 09/22/2020 09/22/2020 12:34 AM SOAKER HELPER COVID-19 Rule Out 01/26/2021 01/26/2021 01/26/2021 7:31 AM CDT COVID-19 Rule Out 01/26/2021 01/26/2021 01/26/2021 10:31 AM CDT documented as of this encounter Care Teams Pest Locator Relationship Specialty Start Date End Date Taya Kumar FNP [address] [facility] [address] [place] [address] PCP - General FAMILY PRACTICE 01/04/17 05/21/19 Sergio Caballero MD [address] [place] [address] PCP - General FAMILY PRACTICE 05/22/19 11/19/19 Sheron Camargo MD [address] [place] [facility] [place] [address] PCP - General INTERNAL MEDICINE 11/20/19 02/09/23 [place] [address] [place] [address] PCP - General FAMILY PRACTICE 02/10/23 07/29/24 [place] [address] [place] [address] PCP - General PHYSICIAN GEOLOGY ASSOCIATE 02/06/25 documented as of this encounter
--- OUTSIDE RECORDS SUMMARY | 2025-11-04 08:02 | XMS_ITS | Encounter Summary ---
Author Organization [facility] Healthcare Address [address] [place] [address] Care Team Providers Care Washing And Screening Plant Supervisor Name Role Phone Sergio Caballero MD Primary Care Provider [phone] Birgit Healy MD Unavailable Encounter Details Date Type Department Care Team (Late st Contact Info) Description 05/03/2025 Orders Only [facility] Health Information Management [address] [place] [address] Scanning, Provider Social History Tobacco Use Types Packs/Day Years Used Date Smoking Tobacco: Former Smokeless Tobacco: Never Alcohol Use Standard Drinks/Week Comments No 0 (1 standard drink = 0.6 oz pur e alcohol) Comments Unknown Sex and Gender Information Value Date Recorded Sex Assigned at Not on file Legal Sex Female 1:12 AM INFORMATION RESOURCES MANAGER Gender Identity Not on file Sexual Orientation Not on file documented as of this encounter Plan of Treatment Not on file documented as of this encounter Procedures Procedure Name Priority Date/Time Associated Diagnosis Comments CARDIOLOGY DOCUMENT SCAN 05/03/2025 documented in this encounter Results * Cardiology Document Scan (05/03/2025) Anatomical Region Laterality Modality Other us Provider Scanning CV CARDIAC SERVICES PROCEDURES Final Result documented in this encounter Visit Diagnoses Not on filedocumented in this encounter Care Teams Washing And Screening Plant Supervisor Relationship Specialty Start Date End Date Sergio Caballero MD PCP - General 03/14/16 [place] [address] [facility] [address] [place] [address] Consulting Physician Rheumatology 07/25/18 documented as of this encounter
--- OUTSIDE RECORDS SUMMARY | 2025-11-04 08:02 | XMS_ITS | Encounter Summary ---
Author Organization [facility] Address [address] [place] [address] Care Team Providers Care Dry Wall Applicator Name Role Phone Taya Kumar Deng GARCIA Primary Care Provider + [phone] eSrgio Caballero MD Primary Care Provider + [phone] Sheron Camargo MD Primary Care Provider + [phone] Camron Greenwood MD Primary Care Provider [phone] Priti Mills Primary Care Provider + [phone] Encounter Details Date Type Department Care Team (Late st Contact Info) Description 04/13/2019 Abstract [facility] CONVERSION [address] [place] [address] , Generic Conversion, Social History Tobacco Use Types Packs/Day Years Used Date Smoking Tobacco: Never Smokeless Tobacco: Never Alcohol Use Standard Drinks/Week Comments Yes 0 (1 standard drink = 0.6 oz pur e alcohol) wine cooler Comments Unknown Sex and Gender Information Value Date Recorded Sex Assigned at Female 04/12/2021 1:27 PM CDT Legal Sex Female 8:40 AM SAVE ALL OPERATOR Gender Identity Female 04/12/2021 1:27 PM CDT [...] Rule Out 09/22/2020 09/22/2020 09/26/2020 10:30 AM SAVE ALL OPERATOR COVID-19 Confirmed 09/22/2020 09/22/2020 12:34 AM SAVE ALL OPERATOR COVID-19 Rule Out 01/26/2021 01/26/2021 01/26/2021 7:31 AM CDT COVID-19 Rule Out 01/26/2021 01/26/2021 01/26/2021 10:31 AM CDT documented as of this encounter Care Teams Dry Wall Applicator Relationship Specialty Start Date End Date Taya Kumar FNP [address] [place] [address] PCP - General FAMILY PRACTICE 01/04/17 05/21/19 Sergio Caballero MD [address] [address] PCP - General FAMILY PRACTICE 05/22/19 11/19/19 Sheron Camargo MD [address] [address] PCP - General INTERNAL MEDICINE 11/20/19 02/09/23 [place] [address] [place] [address] PCP - General FAMILY PRACTICE 02/10/23 07/29/24 [place] [address] [place] [address] PCP - General PHYSICIAN FUNERAL HOME ATTENDANT 02/06/25 documented as of this encounter
--- OUTSIDE RECORDS SUMMARY | 2025-11-04 08:02 | XMS_ITS | Encounter Summary ---
Author Organization [facility] Address [address] [place] [address] Phone Care Team Providers Care Counseling Services Manager Name Role Phone Geoffbebamason Priti D PAC Primary Care Provider Gabriel Santos MD Unavailable [phone] Encounter Details Date Type Department Care Team (Late st Contact Info) Description 04/13/2022 Telephone [facility] [address] [place] [address] Gabriel Santos MD [address] [address] Social History Tobacco Use Types Packs/Day Years Used Date Smoking Tobacco: Former Cigarettes PHQ-2 Answer Date Recorded Total Score - Questions 1-9 0 01/04 Comments Unknown Sex and Gender Information Value Date Recorded Sex Assigned at Not on file Legal Sex Female 2:13 PM LOCOMOTIVE SWITCH OPERATOR Gender Identity Not on file Sexual [...] Care Team (Late st Contact Info) Description 07/03/2026 9:30 AM CDT Lab [facility] [address] [phone] Lab, [facility] 07/10/2026 9:00 AM CDT Office Visit [facility] [address] [phone] Gabriel Santos MD [address] [place], [place] [address] documented as of this encounter Visit Diagnoses Not on filedocumented in this encounter Care Teams Counseling Services Manager Relationship Specialty Start Date End Date Priti Mills, [facility] [address] [place] [address] PCP - General Physician Lumber Material Handler 10/12/21 Gabriel Santos MD [address] [place], [place] [address] Consulting Physician Oncology 10/12/21 documented as of this encounter
--- OUTSIDE RECORDS SUMMARY | 2025-11-04 08:03 | XMS_ITS | Clinical Summary ---
Author Organization [facility] Address [address] [place] [address] Phone Care Team Providers Care Production Tech Name Role Phone Priti Mills PAC Primary Care Provider Gabriel Santos MD Unavailable [phone] Allergies Active Allergy Reactions Criticality Noted Date Comments Clindamycin Itching 11/04/2021 Meloxicam Itching 11/04/2021 Quinolones Unknown 11/04/2021 Sulfa Antibiotics Unknown 11/04/2021 Medications temazepam (RESTORIL) 15 MG Capsule Take 15 mg by mouth nightly as needed. Active hydroxychloroqu ine (PLAQUENIL) 200 MG Tablet Take 200 mg by mouth 2 times daily. Active methotrexate 2.5 MG Tablet Take 2.5 mg by mouth every 7 days Active aspirin 81 MG Chewable Tablet Take 81 mg by mouth daily. Active clobetasol (TEMOVATE) 0.05 % Cream Apply. 0 Active famotidine (PEPCID) 40 MG Tablet 2 Active Adalimumab 40 MG/0.4ML Prefilled Syringe Kit 40 mg by Subcutaneous route. Active Active Problems Problem Noted Date Diagnosed Date Elevated ferritin 10/14/2022 Weakness 10/14/2022 Osteoarthrosis 07/14/2022 Vitamin D deficiency 11/25/2021 Anemia of unknown etiology 11/04/2021 Thrombocytosis 11/04/2021 Bleeding in brain due to brain aneurysm 04/05/20 21 Subarachnoid hemorrhage 01/26/2021 Freiberg's infraction 12/04/2017 Stenosis of intervertebral foramina 08/31/2017 Cervical myelopathy 03/09/2017 Status post cervical spinal fusion 03/09/2017 Spinal stenosis of lumbar region 03/21/2013 Monoclonal gammopathy of unknown significance (M THERESA) 08/25/2011 Polymyalgia rheumatica 05/30/2011 Fibromyalgia 03/05/2011 Immunizations Immunization Administration Dates Next Due Pneumococcal conjugate PCV20 , polysaccharide OHA495 conjugate, adjuvant, PF 12/14/2023 Family History Medical [...] on file Legal Sex Female 2:13 PM MANAGER LSW Gender Identity Not on file Sexual Orientation Not on file Last Filed Vital Signs Vital Sign Reading Time Taken Comments Blood Pressure 120/78 07/11/2025 9:04 AM CDT Pulse 79 07/11/2025 9:04 AM CDT Temperature 36.3 C (97.4 F) 07/11/2025 9:04 AM CDT Respiratory Rate 18 07/12/2024 8:58 AM CDT Oxygen Saturation 94% 07/11/2025 9:04 AM CDT Inhaled Oxygen Concentration - - Weight 89.8 kg (197 lb 14.4 oz) 07/11/2025 9:04 AM CDT Height 161.3 cm (5' 3.5) 07/11/2025 9:04 AM CDT Body Mass Index 34.51 07/11/2025 9:04 AM CDT Plan of Treatment Upcoming Encounters Date Type Department Care Team (Late st Contact Info) Description 07/03/2026 9:30 AM CDT Lab [facility] [address] [phone] Lab, [facility] 07/10/2026 9:00 AM CDT Office Visit [facility] [address] [place] [address] Gabriel Santos MD [address] [place] [address] Health Maintenance Due Date Last Done Comments TdaP Immunization 1956 Zoster Immunization (1 of 2) 1975 Cologuard 2001 Colonoscopy 2001 Respiratory Syncytial Virus (RSV) Immunization (Adult) (1 - Risk 50-74 years 1-dose series) 2006 Colorectal Cancer Screening 05/21/2020 Immunochemical Fecal Occult Blood 05/21/2020 05/21/2019 SARS-COV-2 Immunization (3 - Pfizer risk series) 07/14/2021 06/16/2021, 05/26/2021 Medicare Initial AWV G0438 11/06/2022 DEXA Bone Density 12/13/2024 12/13/2022, 05/03/2019 Influenza Immunization (#1) 2025 10/08/2012, 0 11/19/2010 Mammogram 03/10/2026 03/10/2025, 0503/2025, 03/08/2024, Additional history exists Hepatitis C Virus (HCV) Screening Completed 11/11/2021, 01/26/2021 Pneumococcal Immunization (50+ years) Completed 12/14/2023 Pneumococcal Immunization Combined Discontinued 12/14/2023 Hepatitis B Immunization Aged Out No longer eligible based on patient's age to complete this topic Human Papillomavirus (HPV) Immunization (No Doses Required) Completed Meningococcal Immunization (ACWY) Aged Out No longer eligible based on patient's age to complete this topic Rotavirus Immunization Aged Out No lo nger eligible based on patient's age to complete this topic Insurance MEDICARE C [employer] Care Teams Production Tech Relationship Specialty Start Date End Date Priti Mills, PAC [address] [place] [address] PCP - General Physician Sorter Lumber Straightener 10/12/21 Gabriel Santos MD [address] [address] Consulting Physician Oncology 10/12/21
--- OUTSIDE RECORDS SUMMARY | 2025-11-04 08:03 | XMS_ITS | Encounter Summary ---
Author Organization [facility] Address [address] [place] [address] Care Team Providers Care Circulation Worker Name Role Phone Sheron Camargo MD Primary Care Provider + [phone] Camron Greenwood MD Primary Care Provider [phone] Priti Mills Primary Care Provider + [phone] Encounter Details Date Type Department Care Team (Late st Contact Info) Description 11/11/2021 Therapy Plan [facility] Infusion Services [address] [facility] [place] [address] Gabriel Santos MD [address] [address] Social History Tobacco Use Types [...] on file 10/07 PHQ-2 Answer Date Recorded PHQ-2 Score - If the patient scores above 3, please move on to questions 3-9 0 01/11/2021 Comments No Sex and Gender Information Value Date Recorded Sex Assigned at Female 04/12/2021 1:27 PM CDT Legal Sex Female 8:40 AM INTERACTIVE WEB DEVELOPER Gender Identity Female 04/12/2021 1:27 PM CDT Sexual Orientation Straight 04/12/2021 1: 27 PM CDT COVID-19 Exposure Response Date Recorded In the last month, have you been in contact with someone who was confirmed or suspected to have Coronavirus / COVID-19? No / Unsure 11/11/2021 11:01 AM INTERACTIVE WEB DEVELOPER documented as of this encounter Functional Status [...] Date Author Status No 05/22/2019 2:13 AM THOMPSONT Sapphire Nguyen RN Active documented in this encounter Plan of Treatment Not on file documented as of this encounter Visit Diagnoses Diagnosis Anemia- Primary Anemia, unspecified documented in this encounter Care Teams Circulation Worker Relationship Specialty Start Date End Date Sheron Camargo MD PCP - General INTERNAL MEDICINE 11/20/19 02/09/23 [place] [address] [place] [address] PCP - General FAMILY PRACTICE 02/10/23 07/29/24 [place] [address] [place] [address] PCP - General PHYSICIAN HOGSHEAD HEAD MATCHER 02/06/25 documented as of this encounter
--- NOTE | 2025-11-05 17:51 | WPDPFTINT ---
PFT Procedure Performed PFT Procedure Performed Spirometry with Pre/Post Bronchodilator Plethysmography (Lung Vol) Diffusing Cap (DLCO) Flow Vol Loop PFT Interpretation DOS: 11/04/2025 REQUESTING: Jerry Atkins MD REASON FOR TESTING: moderate persistent asthma PULMONARY FUNCTION TESTS Results are reliable and reproducible. Repeatability of spirometry FEV1 maneuver pre and post bronchodilator is Grade A. GLI 2012 reference equations were used. Spirometry: The pre-bronchodilator FEV1 is 1.98 L, 89%. The pre-bronchodilator FVC is 2.43 L, 85%. The FEV1/FVC ratio is 82%. After bronchodilator, the FEV1 is 1.99 L, no change. The post-bronchodilator FVC is 2.35 L, -3. The FEV1/FVC ratio is 85%. These are normal values, no change after bronchodilator. Lung volumes: The total lung capacity is 4.55 L, 92%, normal. The functional residual capacity is 2.35 L, 83%, normal. The residual volume is 2.13 L, 100%, normal. The RV/TLC is 47%. Airway resistance is increased. Diffusion: DLCO is 13.8, 67%, mildly decreased. The DLCO/VA is 3.79, 87%, normal. Flow volume loop: The flow volume loop is normal. IMPRESSION: Normal spirometry without change following bronchodilator, normal lung volumes, mild decrease in DLCO which corrects for alveolar volume. Lack of response to bronchodilator should not preclude use if clinically indicated. There are no prior studies to compare. Princess Maciel MD
== END 2025-11-04 07:59 | disposition home or self-care (01) ==
PROVIDERS: PCP Family Medicine; Visit Provider Allergy & Immunology
DX: J45.40 Moderate persistent asthma, uncomplicated (principal)
CPT/HCPCS: 94060; 94726; 94729